=== PATIENT | female | born 1950 | race Caucasian/White ===

== ENCOUNTER 2019-02-17 08:41 | Inpatient (IN) ==
--- NOTE | 2019-02-04 10:41 | PAT Medication Instructions ---
Medication Instructions Date of Service February 04, 2019 Home Medications cholecalciferol (vitamin D3) [Vitamin D3] 2,000 unit PO QAM darbepoetin phyllis in polysorbat [Aranesp (in polysorbate)] 10 mcg SUBCUT Q4WK esomeprazole magnesium [Nexium] 20 mg PO QAM ferrous sulfate [iron] 325 mg PO QAM levothyroxine 88 mcg PO QAM metoprolol tartrate 50 mg PO BID multivitamin 1 tab PO QAM Continue as directed darbepoetin phyllis in polysorbat [Aranesp (in polysorbate)] 10 mcg SUBCUT Q4WK DO NOT take the morning of surgery cholecalciferol (vitamin D3) [Vitamin D3] 2,000 unit PO QAM ferrous sulfate [iron] 325 mg PO QAM multivitamin 1 tab PO QAM Take morning of surgery With a small sip of water, OTHERWISE NOTHING TO EAT OR DRINK AFTER MIDNIGHT: esomeprazole magnesium [Nexium] 20 mg PO QAM levothyroxine 88 mcg PO QAM metoprolol tartrate 50 mg PO BID Take evening before surgery metoprolol tartrate 50 mg PO BID Other Notes If you have any questions please call us at [phone] or [phone] or [phone] or [phone]
--- NOTE | 2019-02-04 11:20 | Anesthesiology Consultation ---
Date of Service February 04, 2019 Assessment & Plan (1) Encounter for pre-operative examination: PCP clearance (Sandoval) 02/07 = pre op testing reviewed, CBC with HGB 10.7, known chronic anemia...patient is medically cleared for surgery. Chart Review Chart Review: Acceptable Risk for Surgery and Patient seen in Pre Admission Testing Teaching & Discussion Instructed NPO after midnight before surgery, except medications with 15 cc of water. Medication instructions provided according to the PAT guidelines. History Surgery Operation Date: 02/17/19 11:30 Proposed Procedures p Right Anterior Total Hip Arthroplasty - Stefan Mendieta DO Height/Weight Height: 5 ft 2 in Weight: 62.1 kg Allergies Allergy/AdvReac Type Severity Reaction Status Date / Time No Known Allergies Allergy Verified 01/30/19 14:35 Medications Home Medications Medication Instructions Recorded Confirmed Last Taken cholecalciferol (vitamin D3) 2,000 unit PO QAM 01/30/19 01/30/19 Unknown [Vitamin D3] darbepoetin phyllis in polysorbat 10 mcg SUBCUT Q4WK 01/30/19 01/30/19 Unknown [Aranesp (in polysorbate)] esomeprazole magnesium [Nexium] 20 mg PO QAM 01/30/19 01/30/19 Unknown ferrous sulfate [iron] 325 mg PO QAM 01/30/19 01/30/19 Unknown levothyroxine 88 mcg PO QAM 01/30/19 01/30/19 Unknown metoprolol tartrate 50 mg PO BID 01/30/19 01/30/19 Unknown multivitamin 1 tab PO QAM 01/30/19 01/30/19 Unknown Past Medical History Medical History Avascular necrosis of bone of right hip current issue Chronic anemia GERD (gastroesophageal reflux disease) Hypertension Hypothyroidism Exercise / Class Metabolic Activity III < 4 Walking/Shop/Light housework (Denies CP or SOB with 1 FOS normally, but currently limited by hip pain) Past Family History Family History Brother Family history of diabetes mellitus Sister Family history of diabetes mellitus Past Surgical History Surgical History History of arthroscopy of both knees History of cholecystectomy History of colonoscopy Past Anesthesia History No Hx of Anesthesia Complications and No Family Hx of Anesthesia Complications History of PONV No Hx of PONV and No Hx of Motion Sickness Social History Smoking Status: Never smoker Do You Dip or Chew Tobacco: No Hx Alcohol Use: No Hx Substance Use: No Review of Systems Pt denies any recent chest pain, shortness of breath, palpitations, cough, fever or URI. Physical Exam Vital Signs BP: 146/81 (pt is having significant pain today) P: 61bpm SPO2: 98% RA T: 97.8 R: 16 ENMT Mouth: + dentures (full upper); no chipped teeth and no loose teeth Thyromental Distance: < 3.5 Finger Breadths (3) Mallampati Class: I Missing all top teeth, all molars on the bottom. Neck normal visual inspection; neck extension not limited Respiratory normal respiratory effort Auscultation: lungs clear to auscultation bilaterally Cardiovascular Rate/Rhythm: regular rate and regular rhythm Heart Sounds: no murmur Vessels: no carotid bruit Extremities: no edema Testing Laboratory Results 02/04/19 11:29 02/04/19 11:29 PT 9.9 Seconds (9.0-12.0) 02/04/19 11:29 INR 1.0 (0.9-1.1) 02/04/19 11:29 APTT 25.4 Seconds (21.0-31.0) 02/04/19 11:29 Hemoglobin A1c 5.0 % (4.5-5.6) 02/04/19 11:22 Urine Color Yellow 02/04/19 11:29 Urine Appearance Clear (Clear) 02/04/19 11:29 Urine pH 5.0 (4.5-7.5) 02/04/19 11:29 Ur Specific [place] 1.020 (1.000-1.030) 02/04/19 11:29 Urine Protein Negative (Negative) 02/04/19 11:29 Urine Glucose (UA) Negative (Negative) 02/04/19 11:29 Urine Ketones Negative (Negative) 02/04/19 11:29 Urine Nitrite Negative (Negative) 02/04/19 11:29 Ur Leukocyte Esterase Negative (Negative) 02/04/19 11:29 Blood Type A Negative 02/04/19 11:29 Antibody Screen NEGATIVE 02/04/19 11:29 Electrocardiogram Date: 02/04/19 Findings: + SB @ (59bpm with 1st degree AV block) Chest X-Ray Date: 02/04/19 Findings: + NAD
--- NOTE | 2019-02-04 12:08 | XRay Report ---
XR chest Pre-admission PA/Lat CLINICAL HISTORY: Preoperative chest COMPARISON STUDY: No previous studies for comparison. FINDINGS: The cardiac and mediastinal contours are normal. There is no evidence of focal pulmonary co nsolidation. There is no evidence of failure. No pleural effusions are visualized.[There is a suspect ed hiatal hernia. IMPRESSION: No active disease in the chest. Electronically signed by: Rene Delgadillo M.D. 02/04/2019 12:07 PM
[2019-02-04 12:28] LABS: Basophils # (auto) 0.04 K/uL (0-0.2); Basophils % (auto) 0.7 %; Eosinophils # (auto) 0.14 K/uL (0-0.5); Eosinophils % (auto) 2.4 %; Hematocrit (blood only) 33.3 % (37-47); Hemoglobin 10.7 g/dL (12.0-16.0); Immature Granulocytes # (auto) 0.01 K/uL (0.00-0.02); Immature Granulocytes % (auto) 0.2 %; Lymphocytes # (auto) 0.66 K/uL (1.2-3.4); Lymphocytes % (auto) 11.2 %; Mean Corpuscular Hgb Conc 32.1 g/dL (32-36); Mean Corpuscular Volume 85.8 fL (80-100); Mean Platelet Volume 9.6 fL (7.4-10.4); Monocytes # (auto) 0.51 K/uL (0.11-0.59); Monocytes % (auto) 8.7 %; Neutrophils # (auto) 4.52 K/uL (1.4-6.5); Neutrophils % (auto) 76.8 %; Platelet Count 191 K/uL (130-400); RDW Coefficient of Variation 18.8 % (11.5-14.5); RDW Standard Deviation 59.2 fL (36.4-46.3); Red Blood Count 3.88 M/uL (4.2-5.4); White Blood Count 5.88 K/uL (4.8-10.8)
[2019-02-04 12:35] LABS: Albumin Level 3.5 gm/dl (3.4-5.0); Appearance Urine Clear (Clear); BUN Creatinine Ratio 22.4 (10-20); Bilirubin Urine Negative (Negative); Color Urine Yellow; Creatinine Clr Calc Pharmacy 37.9 ml/min; Est GFR (African American) 51.5; Est GFR (Non-African American) 44.5; Glucose Urine UA Negative (Negative); Ketones Urine Negative (Negative); Leukocyte Esterase Urine Negative (Negative); Nitrite Urine Negative (Negative); Potassium 4.4 mmol/L (3.5-5.1); Protein Urine Negative (Negative); Urobilinogen Urine Negative (Negative)
[2019-02-04 12:43] LABS: Partial Thromboplastin Ratio 0.9; Partial Thromboplastin Time 25.4 Seconds (21.0-31.0); Prothrombin Time 9.9 Seconds (9.0-12.0)
[2019-02-04 12:45] LABS: Estimated Average Glucose 97 mg/dl
--- NOTE | 2019-02-16 22:19 | History & Physical Report ---
Date of Service February 16, 2019 Assessment & Plan (1) Avascular necrosis of bone of right hip: I have indicated the patient for right anterior total hip replacement. The risks, benefits and complications of surgery were explained to the patient which include but not limited to infection, acute blood loss, DVT/PE, injury to nerves, vessels, bone, soft tissue, arthrofibrosis, chronic pain, failure of the prosthesis, hip dislocation, leg length discrepancy, need for additional surgery, cardiac and pulmonary events and . The patient wished to proceed with surgery and informed consent was obtained at this time. We will plan for ASA 81mg BID post-operatively for DVT prophylaxis. Upon discharge the patient will be discharged home with home health services. Appropriate clearances by PCP were obtained. History of Present Illness Chief Complaint: Right hip pain/AVN with collapse Primary Care Provider: Peter Nick The patient is a 68 year old female who presents with complaints of severe right hip pain and DJD. The patient has failed outpatient conservative treatments to this point which included PT, HEP, unable to take NSAIDs secondary to blood disorder. The patient's pain and limited function have progressed to the point where they severely hinder their activities of daily living and they no longer tolerate exercise programs. They are requesting to proceed with total hip replacement surgery. Allergies Allergy/AdvReac Type Severity Reaction Status Date / Time No Known Allergies Allergy Verified 02/17/19 09:11 Home Medications Home Medications Medication Instructions Recorded Confirmed Type cholecalciferol (vitamin D3) 2,000 unit PO QAM 01/30/19 01/30/19 History [Vitamin D3] darbepoetin phyllis in polysorbat 10 mcg SUBCUT Q4WK 01/30/19 01/30/19 History [Aranesp (in polysorbate)] esomeprazole magnesium [Nexium] 20 mg PO QAM 01/30/19 01/30/19 History ferrous sulfate [iron] 325 mg PO QAM 01/30/19 01/30/19 History levothyroxine 88 mcg PO QAM 01/30/19 01/30/19 History metoprolol tartrate 50 mg PO BID 01/30/19 01/30/19 History multivitamin 1 tab PO QAM 01/30/19 01/30/19 History Past Med/Surg History Medical History Avascular necrosis of bone of right hip current issue Chronic anemia GERD (gastroesophageal reflux disease) Hypertension Hypothyroidism Surgical History History of arthroscopy of both knees History of cholecystectomy History of colonoscopy Family History Brother Family history of diabetes mellitus Sister Family history of diabetes mellitus Social History Preferred Language: Tajik Communication Ability: Effective Beliefs That Will Affect Care: None Current Living Situation: Spouse Feels Safe at Home: Yes Smoking Status: Never smoker Do You Dip or Chew Tobacco: No Second Hand Exposure: No Hx Alcohol Use: No Hx Substance Use: No Review of Systems Review of Systems: All systems reviewed & are unremarkable except as noted in HPI & below Constitutional: as per Subjective / HPI Physical Exam Physical Exam: RLE NVSI +EHL/FHL/TA/GS SILT grossly, +2 DP pulse, compartments soft NT, painful limited ROM, antalgic gait Constitutional: WD/WN, vitals as above Eyes: PERRL, conjunctivae normal, anicteric sclerae ENMT: external ear and nose normal, oropharynx normal Neck: trachea midline, no thyromegaly Respiratory: normal respiratory effort, lungs clear to auscultation Cardiovascular: RRR, no murmur, no edema Gastrointestinal (Abdomen): normal bowel sounds, soft, nontender, no hepatosplenomegaly Musculoskeletal: no cyanosis or clubbing, extremities motor strength 5/5 Skin: no rashes, warm and dry Neurologic: patellar DTR's 2+ bilat, sensation intact Psychiatric: A+Ox3, euthymic affect Lymphatic: no cervical or axillary lymphadenopathy Results & Data Diagnostic Findings Multiple views of the hip demonstrates severe AVN, DJD with collapse. +osteophytes, +sclerosis, +subchondral cysts.
[~2019-02-17 08:41] MED LIST: ACETAMINOPHEN 500 MG TAB PO SCH; BUPIVACAINE 0.5 % 5 MG/1 ML PF 10ML VIAL ONE; CEFAZOLIN 1000MG 1,000 MG/7.5 ML SYR IV SCH; CeleBREX 200 MG CAP PO SCH; FAMOTIDINE 20 MG TAB PO SCH; GABAPENTIN 300 MG CAP PO SCH; LR 500ML BOLUS, THEN 15ML/HR IV SCH; METOCLOPRAMIDE HCL 10 MG TABLET PO SCH; ROPIVACAINE 0.5% HCL/PF 150 MG, BUPIVACAINE 0.5% MPF 30 ML, EPINEPHrine 30MG/30ML (OR U... INSTIL SCH; TRANEXAMIC ACID 1,000 MG **IV Intra-op IV SCH; TRANEXAMIC ACID 1,000 MG **IV Pre-op IV SCH; dexAMETHasone 4 MG TAB PO SCH
--- NOTE | 2019-02-17 09:13 | History & Physical Bridge Note ---
Date of Service February 17, 2019 History & Physical Bridge Note I have examined the patient, reviewed the History & Physical and in the interval since the performance of the History & Physical I have noted the following changes of clinical significance: no changes noted
[2019-02-17] MEDS ORDERED: ORTHO JOINT ANESTHETIC ONE (09:30)
[2019-02-17] MEDS ORDERED: BACITRACIN INJ 50,000 UNIT VIAL ONE (09:31)
[2019-02-17] MEDS ORDERED: MIDAZOLAM HCL 1 MG/ML 2ML VIAL ONE ×2 (09:35→09:36)
[2019-02-17] MEDS ORDERED: LIDOCAINE HCL 2% 2 ML VIAL/AMP(20MG/ML) INFIL ONE (09:35)
[2019-02-17] MEDS ORDERED: PROPOFOL IV EMULSION 10 MG/ML 20 ML VIAL IV ONE (09:35)
[2019-02-17] MEDS ORDERED: fentaNYL citrate 100 MCG/2 ML VIAL ONE (09:36)
[2019-02-17] MEDS ORDERED: KETAMINE HCL INJ 50 MG/ML 10 ML VIAL ONE (09:36)
[2019-02-17] MEDS ORDERED: PHENYLEPHRINE 100MCG/ML 5ML SYR IV PRN (10:04)
[2019-02-17] MEDS ORDERED: LABETALOL HCL IV 5 MG/ML 20ML IV PRN (10:04)
[2019-02-17] MEDS ORDERED: ATROPINE SULFATE 0.1 MG/ML 10ML SYR IV PRN (10:04)
[2019-02-17] MEDS ORDERED: ePHEDrine sulfate 50 MG/ML AMP IV PRN (10:04)
[2019-02-17] MEDS ORDERED: fentaNYL citrate 100 MCG/2 ML VIAL IV PRN (10:04)
[2019-02-17] MEDS ORDERED: ONDANSETRON INJ 2 MG/ML 2 ML VIAL IV PRN ×2 (10:04→14:58)
[2019-02-17] MEDS ORDERED: ePHEDrine sulfate 50 MG/ML SYR ONE (12:32)
--- NOTE | 2019-02-17 12:39 | Post Operative Brief Note ---
Immediate Post Op Note v1 Date of Surgery February 17, 2019 Pre & Post Diagnosis Operation Date: 02/17/19 11:20 Pre-Op Diagnosis: Right hip osteoarthritis Post-Op Diagnosis: Right hip osteoarthritis Procedure Operation Date: 02/17/19 11:20 Actual Procedures p Right Anterior Total Hip Arthroplasty(Right) - Stefan Mendieta DO Surgeon Stefan Mendieta DO Agronomy Manager Lakhwinder Avelar Estimated Blood Loss 85 Findings Consistent with Post-Op Diagnosis Fluids 900 IO, 1500 cc LR total Specimens femoral head Anesthesia Type Spinal MAC Complications none Disposition Disposition: Recovery Room Overlapping Procedure I was present for: the critical portions of procedure. I was immediately available: during the entire case. Back up surgeon: was not required during procedure.
--- NOTE | 2019-02-17 12:44 | Operative Report ---
Post Operative Report Pre & Post Diagnosis Operation Date: 02/17/19 11:20 Pre-Op Diagnosis: Right hip osteoarthritis Post-Op Diagnosis: Right hip osteoarthritis Procedure Operation Date: 02/17/19 11:20 Actual Procedures p Right Anterior Total Hip Arthroplasty(Right) - Stefan Mendieta DO Surgeon Stefan Mendieta DO Rn Lvn Lakhwinder Avelar Estimated Blood Loss 85 Findings Consistent with Post-Op Diagnosis Fluids 1500 cc LR total Specimens Femoral head Anesthesia Type Spinal MAC Complications none Disposition Disposition: Recovery Room Indications The patient is a 61-year-old female who presents with severe progressive right hip AVN/ DJD who has failed outpatient conservative treatments. I indicated the patient for a anterior total hip replacement and the risks and benefits were explained in detail which include but not limited to infection, bleeding, blood clot, damage to surrounding bone, nerves, vessels, soft tissue, hip dislocation, failure of the prosthesis, leg length discrepancy, need for additional surgery and . The patient agreed to proceed with replacement of the hip and informed consent was obtained. Appropriate clearances were obtained. Description of Procedure COMPONENTS USED: [employer] hip system: Acetabulum size 48, femur size 8 standard offset, femoral head 32+0, liner 4832, acetabular screw 25 mm x 2. DESCRIPTION OF PROCEDURE: Following satisfactory spinal anesthesia, the patient was placed supine on the OR table. The left leg was placed in the well leg kyle and the right leg in the traction device. The right leg was prepared with ChloraPrep and draped sterilely. A surgical timeout was performed, patient identified and site justin verified. Appropriate antibiotics were given. A standard anterior approach in the interval between the sartorius and tensor muscles was performed. Dissection was carried down through subcutaneous tissues. Electrocautery was utilized for hemostasis. Circumflex femoral vessels were identified, tied and ligated. The anterior capsular fat pad was removed and the capsulotomy was performed revealing the arthritic femoral neck and head. A femoral neck cut was made with reciprocating saw and the bone fragments removed. The acetabular self-retraining retractor was placed. Acetabular reaming was completed under fluoroscopic guidance, a 48 shell was impacted into an anatomic position and secured with 2 dome screws. Local anesthetic was placed and following irrigation, the polyethylene liner was placed. The femur was placed into position of external rotation, extension and adduction. Femoral canal was prepared up to the size 8 standard offset. Trial reduction with a +0 neck length head showed good soft tissue tension, leg length s restored, and good fit and fill of the proximal canal using fluoroscopic landmarks. The hip was dislocated. The trial component was removed. The final implant was placed. The hip was irrigated with sterile saline solution and reduced. A Betadine soak was performed. After 3 minutes, the hip was once more irrigated with copious sterile saline solution with bacitracin. Shila-incisional soft t issue was injected utilizing [place] [employer] which includes a combination of Ropivicaine 0.5% 150mg, Bupivicaine 0.5%/Epinephrine 1:200,000 30ml, Toradol 30mg, Dexamethasone 4mg, Ketamine 10mg, Clonidine 100mcg and NSS 30ml solution. The capsule was then closed with 1-0 Vicryl interrupted figure of eight sutures. The fascia was closed with a running suture of #1 Vicryl, the subcutaneous tiss ues with 2-0 Vicryl and the skin with a running subcuticular stitch of 3-0 V- Loc. Dermabond prineo and a dry dressing were applied. The patient tolerated the procedure well and was transported to PACU in stable condition. Due to the complex nature of the procedure, the entire surgery was performed with the operational assistance of Lakhwinder Avelar PA-C. The hearing aid assistant, under direct supervision, was involved in the actual performance of all aspects of the surgical procedure including patient positioning, hemostasis, tissue retraction, instrument management and wound closure. I attest to the content of the Intraoperative Record and any orders documented therein. Any exceptions are noted below.
--- NOTE | 2019-02-17 13:26 | Fluoroscopy Report ---
FL hip RT 1V CLINICAL HISTORY: Total right hip arthroplasty. Intraoperative films. COMPARISON STUDY: CT scan dated 01/30/2019 FLUOROSCOPY TIME: 45 seconds. NUMBER OF FLUOROSCOPIC IMAGES: 4 FINDINGS: 4 intraoperative fluoroscopic spot images reveal postsurgical changes of a total right hip arthroplasty. There is no dislocation. IMPRESSION: Postsurgical changes of a total right hip arthroplasty. No evidence of dislocation. Electronically signed by: Rene Delgadillo M.D. 02/17/2019 1:25 PM
--- NOTE | 2019-02-17 13:41 | XRay Report ---
XR hip 1V RT w pelvis CLINICAL HISTORY: IN PACU - A/P PELVIS and LATERAL HIP POSTOP RIGHT HIP ARTHROPLASTY COMPARISON: None. DISCUSSION: The study is rotated. There are postsurgical changes of a total right hip arthroplasty. T he acetabular femoral components appear well seated. There is no dislocation. There are advanced arth ritic changes present within the left hip. Mild irregularity of the left ischio pubic ring may be pos itional. IMPRESSION: Postsurgical changes of a total right hip arthroplasty. No evidence of dislocation. Electronically signed by: Rene Delgadillo M.D. 02/17/2019 1:39 PM
--- NOTE | 2019-02-17 13:58 | Orthopedic Progress Note ---
Date of Service February 17, 2019 Assessment & Plan (1) Avascular necrosis of bone of right hip: Status post right anterior total hip arthroplasty -Ancef x24 -DVT prophylaxis: SCDs, teds, 81 mg ASA twice daily -Weight-bear as tolerates right lower extremity -PT/OT -Postoperative x-ray demonstrates a well aligned well fixed orthopedic prosthesis without fracture dislocation -A.m. lab -DC planning Subjective Post Operative Progress Note Patient seen in PACU, comfortable, denies complaints, pain well controlled, no acute issues. Still feeling the effects of spinal anesthesia. Review of Systems Review of Systems: All systems reviewed & are unremarkable except as noted in HPI & below Constitutional: as per Subjective / HPI Physical Exam Physical Exam: Right lower extremity physical exam limited secondary to spinal anesthesia, +2 dorsalis pedis pulse, compartment soft nontender, dressings clean dry and intact. Constitutional: WD/WN, vitals as above Results & Data Vital Signs (Past 12 Hours) Vital Signs Temp Pulse Pulse Resp BP Pulse Ox 02/17/19 13:45 36.2 C L 60 19 128/68 100 02/17/19 13:35 36.2 C L 66 13 122/66 100 02/17/19 13:25 36.2 C L 61 11 L 134/80 100 02/17/19 13:15 36.2 C L 63 14 141/71 H 100 02/17/19 13:06 36.2 C L 66 16 123/68 99 02/17/19 11:45 36.3 C L 60 19 126/68 100 02/17/19 09:22 36.6 C 65 16 149/87 H 96
--- NOTE | 2019-02-17 14:02 | Anesthesiology Progress Note ---
Date of Service February 17, 2019 Anesthesia Post Procedure Vital Signs Vital Signs: Temp Pulse Pulse Resp BP Pulse Ox 02/17/19 13:45 36.2 C L 60 19 128/68 100 02/17/19 13:35 36.2 C L 66 13 122/66 100 02/17/19 13:25 36.2 C L 61 11 L 134/80 100 02/17/19 13:15 36.2 C L 63 14 141/71 H 100 02/17/19 13:06 36.2 C L 66 16 123/68 99 02/17/19 11:45 36.3 C L 60 19 126/68 100 02/17/19 09:22 36.6 C 65 16 149/87 H 96 Transfer of Care Handoff Completed per policy Notes Mental Status: alert / awake / arousable Patient Amnestic to Procedure: Yes Nausea / Vomiting: adequately controlled Pain: adequately controlled Airway Patency, RR, SpO2: stable & adequate BP & HR: stable & adequate Hydration State: stable & adequate Neuraxial Anesthesia: was administered and sensory block is resolving Anesthetic Complications: no major complications apparent and Pt Satisfied with anesthetic care
[2019-02-17] MEDS ORDERED: NALOXONE HCL 0.4 MG/1 ML VIAL/CARP IV PRN (14:58)
[2019-02-17] MEDS ORDERED: HYDROmorphone INJ 0.5 MG/0.5 ML SYR IV PRN (14:58)
[2019-02-17] MEDS ORDERED: BISACODYL 10 MG SUPP PR PRN (14:58)
[2019-02-17] MEDS ORDERED: MAGNESIUM HYDROXIDE SUSP 30 ML UDC PO PRN (14:58)
[2019-02-17] MEDS ORDERED: METOCLOPRAMIDE HCL INJ 5 MG/ML 2 ML VIAL IV PRN (14:58)
[2019-02-17] MEDS ORDERED: OXYCODONE HCL IR 5 MG TAB (IMMEDIATE RELEASE) PO PRN (14:58)
[2019-02-17] MEDS: SODIUM CHLORIDE 0.9% 1000ML 1,000 ML IV SCH (15:21)
[2019-02-17] MEDS: ACETAMINOPHEN 500 MG TAB PO SCH (16:37)
[2019-02-17] MEDS: KETOROLAC TROMETHAMINE 15 MG/ML VIAL IV SCH ×2 (16:37→22:10)
[2019-02-17] MEDS: CEFAZOLIN 1000MG 1,000 MG/7.5 ML SYR IV SCH (19:10)
[2019-02-17] MEDS ORDERED: COUGH DROP (SUGAR FREE) LOZ 24 LOZ/1 BOX BUCCAL PRN (20:53)
[2019-02-17] MEDS: METOPROLOL TARTRATE 50 MG TAB PO SCH (20:56)
[2019-02-17] MEDS: DOCUSATE SODIUM 100 MG CAP PO SCH (20:57)
[2019-02-17] MEDS ORDERED: COUGH DROP (SUGAR FREE) LOZ 24 LOZ/1 BOX BUCCAL ONE (20:58)
[2019-02-17] MEDS ORDERED: SENNA 8.6 MG TAB PO SCH (21:00)
[2019-02-18] MEDS: SODIUM CHLORIDE 0.9% 1000ML 1,000 ML IV SCH (00:23)
[2019-02-18] MEDS: CEFAZOLIN 1000MG 1,000 MG/7.5 ML SYR IV SCH (03:13)
[2019-02-18] MEDS: KETOROLAC TROMETHAMINE 15 MG/ML VIAL IV SCH ×2 (04:53→10:38)
[2019-02-18] MEDS ORDERED: LEVOTHYROXINE SODIUM 88 MCG TABLET PO SCH (06:30)
[2019-02-18] MEDS: ACETAMINOPHEN 500 MG TAB PO SCH ×2 (06:33→13:27)
[2019-02-18 06:39] LABS: Basophils # (auto) 0.01 K/uL (0-0.2); Basophils % (auto) 0.1 %; Hematocrit (blood only) 26.1 % (37-47); Hemoglobin 8.4 g/dL (12.0-16.0); Immature Granulocytes # (auto) 0.03 K/uL (0.00-0.02); Immature Granulocytes % (auto) 0.3 %; Lymphocytes % (auto) 4.9 %; Mean Corpuscular Hgb Conc 32.2 g/dL (32-36); Mean Corpuscular Volume 84.7 fL (80-100); Mean Platelet Volume 9.2 fL (7.4-10.4); Monocytes # (auto) 0.53 K/uL (0.11-0.59); Monocytes % (auto) 5.2 %; Neutrophils # (auto) 9.16 K/uL (1.4-6.5); Neutrophils % (auto) 89.5 %; Platelet Count 143 K/uL (130-400); RDW Coefficient of Variation 17.5 % (11.5-14.5); RDW Standard Deviation 54.9 fL (36.4-46.3); Red Blood Count 3.08 M/uL (4.2-5.4); White Blood Count 10.23 K/uL (4.8-10.8)
[2019-02-18 07:07] LABS: Calcium 8.7 mg/dl (8.5-10.1); Creatinine Clr Calc Pharmacy 34.4 ml/min; Est GFR (African American) 46.1; Est GFR (Non-African American) 39.8; Potassium 3.9 mmol/L (3.5-5.1)
[2019-02-18] MEDS: METOPROLOL TARTRATE 50 MG TAB PO SCH (08:30)
[2019-02-18] MEDS: DOCUSATE SODIUM 100 MG CAP PO SCH (08:37)
[2019-02-18] MEDS ORDERED: FERROUS SULFATE 325 MG TAB PO SCH (09:00)
[2019-02-18] MEDS ORDERED: MULTIVITAMIN TAB PO SCH (09:00)
[2019-02-18] MEDS ORDERED: PANTOprazole 40 MG TAB PO SCH (09:00)
[2019-02-18] MEDS ORDERED: ASPIRIN 81 MG ECTAB PO SCH (09:00)
[2019-02-18] MEDS ORDERED: FOLIC ACID 1 MG TAB PO SCH (09:00)
--- NOTE | 2019-02-18 09:44 | Orthopedic Progress Note ---
Date of Service February 18, 2019 Assessment & Plan (1) Avascular necrosis of bone of right hip: Status post right anterior total hip arthroplasty -Ancef x24 -DVT prophylaxis: SCDs, teds, 81 mg ASA twice daily -Weight-bear as tolerates right lower extremity -PT/OT -Postoperative x-ray demonstrates a well aligned well fixed orthopedic prosthesis without fracture dislocation -A.m. lab - 8.4 -DC planning - home with HH Subjective Post Operative Progress Note Patient seen sitting up in bed, comfortable, denies complaints, pain well controlled, no acute issues. Review of Systems Review of Systems: All systems reviewed & are unremarkable except as noted in HPI & below Constitutional: as per Subjective / HPI Physical Exam Physical Exam: RLE NVSI +EHL/FHL/TA/GS SILT grossly, +2 DP pulse, compartments soft NT, dressing cdi. Constitutional: WD/WN, vitals as above Results & Data Vital Signs (Past 12 Hours) Vital Signs Temp Pulse Resp BP Pulse Ox 02/18/19 08:27 79 120/70 02/18/19 07:15 36.4 C L 54 L 16 135/68 98 02/18/19 03:01 36.4 C L 48 L 16 146/71 H 100 02/17/19 23:10 36.4 C L 49 L 16 146/78 H 100
--- NOTE | 2019-02-18 20:35 | Discharge Summary ---
Date of Service February 18, 2019 Admission HPI Per Admitting Provider The patient is a 68 year old female who presents with complaints of severe right hip pain and DJD. The patient has failed outpatient conservative treatments to this point which included PT, HEP, unable to take NSAIDs secondary to blood disorder. The patient's pain and limited function have progressed to the point where they severely hinder their activities of daily living and they no longer tolerate exercise programs. They are requesting to proceed with total hip replacement surgery. Principal Diagnosis Right anterior total hip replacement Discharge Exam RLE NVSI +EHL/FHL/TA/GS SILT grossly, +2 DP pulse, compartments soft NT, dressing cdi. 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 The patient's symptoms have progressed to the point where it has been difficult to perform even normal activities of daily living. I indicated the patient for a right anterior total hip arthroplasty, the risks, benefits and complications of the procedure include but not limited to infection, bleeding, damage to bone, nerves, vessels, surrounding soft tissue, may develop blood clots, loss of function, leg length discrepancy, dislocation, failure of the components, loosening of the components, the need for additional surgery and . The patient wished to proceed with surgery at this time and informed consent was obtained. Hospital Course: On 02/17/19 the patient was taken to the operating room, adequate anesthesia administered and underwent a right anterior total hip arthroplasty. The patient tolerated the procedure well and was taken to the PACU in stable condition. Post-operatively the patient was started on a DVT ppx medication and given appropriate IV antibiotics. Consults were placed to physical therapy, occupational therapy and case management. On POD#1, the patient did well overnight and their pain was well controlled. Labs were drawn and the Hgb was 8.4. The patient progressed well with PT. Dressings were changed at this time and the incision was clean, dry and intact. The patients hospital stay was relatively uneventful and they were deemed stable by the orthopedic team and consultants to be discharged home with HH on 02/18/19. Discharge Instructions: Upon discharge the patient may weight bear as tolerates through their operative extremity. They were instructed to keep the incision clean and dry at all times. The patient may shower but should not submerge the incision, avoid bathing, pools and hot tubes. The patient was given a script for pain medication and should take as instructed. The patient was given a script for DVT ppx ASA 81mg BID and should take as directed. The patient was instructed to not drive or travel for long distances until cleared to do so. If the patient develops any symptoms of fevers, chills, nausea, vomiting, increased redness, swelling, pain or drainage from the surgical site, they should notify the office and/or proceed to the nearest emergency room. The patient should follow up in 10-14 days after surgery for their routine post-operative follow-up appointment and should call the office to confirm the date and time. Status post right anterior total hip arthroplasty POD#1 -Ancef x24 -DVT prophylaxis: SCDs, teds, 81 mg ASA twice daily -Weight-bear as tolerates right lower extremity -PT/OT -Postoperative x-ray demonstrates a well aligned well fixed orthopedic prosthesis without fracture dislocation -A.m. lab - 8.4 -DC planning - home with HH Total Time Total Time Spent Total Time Spent (In Minutes): 30 minutes Total Time Includes: Examination of the Patient, Discharge Planning, Medication Reconciliation and Communication With Other Providers Discharge Plan Discharge Items Patient Disposition: Home - Home Health Services Reason For Visit: RIGHT HIP OSTEOARTHRITIS Discharge Diagnosis: Right anterior total hip replacement Condition: Good Discharge Goals: Decrease discomfort, Improve disease control, Improve function and Therapeutic intervention Activity: Per 'Additional Instructions' section Lifting: Wait until after follow-up appointment Bathing: Keep incision dry Bathing Comment: No bathing, pools or hot tubs Sexual Activity: Wait until after follow-up appointment Exercise/Sports: Wait until after follow-up appointment Driving/Machine Use Comment: No driving till cleared by your surgeon Weightbearing: Right weightbearing Non-emergency contact: Primary Care Provider and Surgeon Call non-emergency contact if: you have any medication questions, your symptoms worsen, your pain is not controlled, your pain is worsening, your pain is unusual for you, your pain is concerning for you, you have a fever, your temperature is above 101, your wound has increased redness, your wound has increased drainage and your wound pain has increased Follow-up/Referrals: Peter Nick [Primary Care Provider] - Diet: Regular Other Ambulatory Orders: Basic Metabolic Panel (Routine) Timeframe: 1 Week Facility: [facility] - Location: Administration / Operations Ordered By: Stefan Kwan Provider Instructions: ACTIVITY RECOMMENDATIONS: SELF CARE INSTRUCTIONS AFTER TOTAL HIP REPLACEMENT : Direct Anterior Approach Until the incision and soft tissues around your hip have healed, there is a possibility that the hip prosthesis could dislocate. A. Hip flexion ( Up & Down out of chair or steps ) may be difficult. This is normal. B. Numbness in front of the thigh is also normal for a few weeks. C. Use hand rails when walking on stairs. D. Wear low heeled shoes with non-slip soles. E. Be sure that your floors are free of things that could trip you - throw rugs, electrical cords, small objects. Avoid wet and waxed floors, especially with crutches and canes. F. Try to walk several times a day with rest periods between. G. Continue with all the exercises taught to you in the hospital. Again, make walking a part of your daily routine. SPECIAL CARE INSTRUCTIONS: VERY IMPORTANT TO READ AND REVIEW A. You may still be at risk for phlebitis and blood clots. 1. Wear surgical stockings (EDUAR hose) for 2 weeks after surgery to improve circulation and reduce swelling. 2. Take Aspirin 81mg twice daily for 4 weeks or as directed by your doctor. This is your blood thinner. 3. High risk patients may be prescribed a stronger blood thinner if necessary. 4. If you are on Coumadin normally, your family doctor/practice coordinator should monitor your blood work. Expect a phone call the day of or the day after bloodwork is drawn to adjust your dosage. B. You must take antibiotics before having dental work, bladder, bowel and other surgery. Your doctor will provide you with a permanent card to carry describing precautions. C. Call [facility] if you have a fever, redness or swelling around the incision, cloudy drainage from incision, or sudden increase in pain in your hip, not relieved by your regular pain medication. D. Please call the office at if you have any concerns or questions about your operation or recovery. * YOU MAY SHOWER, NO TUB BATHS UNTIL CLEARED BY YOUR DOCTOR. - Keep an extra close eye on the top portion of your incision. Be sure to keep clean & dry. * WEAR EDUAR HOSE 20 HOURS PER DAY FOR 2 WEEKS. * YOU MAY PROGRESS FROM A WALKER, TO A CANE, TO INDEPENDENT AT YOUR OWN PACE. * MOST PATIENTS WILL HAVE HOME NURSING FOR THERAPY. IF YOU DECIDE TO DO OUTPATIENT PHYSICAL THERAPY, PLEASE SCHEDULE THIS 3 TIMES PER WEEK. * DERMABOND Prineo- This is a mesh tape dressing that is covered with glue. It should remain in place until the incision is properly healed, usually 10-14 days. This dressing is designed to naturally slough off. You may trim the excess mesh tape as it peels off. Incision may be briefly wet in a shower. Dry immediately by blotting with a clean, dry towel. Do not bath or swim until instructed by your doctor. Do not scratch, rub, or pick at the dressing. Do not apply any topical ointments or lotions until dressing is completely removed and/or instructed by your doctor. There may be a small piece of suture material at one end of your incision. Do not pull or trim this. If it is bothersome or catching on clothing, you may cover it with a band-aid. FOLLOW UP VISIT: If appointment is not already scheduled: Please call [facility] to make a follow-up appointment for 2 weeks after your surgery at . Follow up with your primary care physician in 7-10 days, a prescription for blood work to look at your kidney function was provided, please obtain within 1 week. Prescriptions: New celecoxib [Celebrex] 200 mg Capsule 200 mg PO BID PRN (Reason: pain/inflammation) Qty: 28 RF: 0 aspirin [Ecotrin Low Strength] 81 mg Tablet,Delayed Release (Dr/Ec) 81 mg PO BID Qty: 56 RF: 0 acetaminophen [Tylenol Extra Strength] 500 mg Tablet 1,000 mg PO Q8 PRN (Reason: pain and/or fever) Qty: 90 RF: 0 oxycodone 5 mg Tablet 5 mg PO Q6H MDD 6 tabs PRN (Reason: pain) Qty: 30 RF: 0 sennosides [Senokot] 8.6 mg Tablet 17.2 mg PO HS PRN (Reason: constipation) Qty: 28 RF: 0 Continued multivitamin Tablet 1 tab PO QAM RF: 0 levothyroxine 88 mcg Tablet 88 mcg PO QAM RF: 0 ferrous sulfate [iron] 325 mg (65 mg iron) Tablet 325 mg PO QAM RF: 0 metoprolol tartrate 50 mg Tablet 50 mg PO BID RF: 0 esomeprazole magnesium [Nexium] 20 mg Capsule,Delayed Release(Dr/Ec) 20 mg PO QAM RF: 0 cholecalciferol (vitamin D3) [Vitamin D3] 2,000 unit Tablet 2,000 unit PO QAM RF: 0 Aranesp (in polysorbate) 10 mcg/0.4 mL Syringe 10 mcg subcut Q4WK RF: 0 folic acid 1 mg Tablet 1 mg PO DAILY RF: 0 Discontinued aspirin [Aspir-81] 81 mg Tablet,Delayed Release (Dr/Ec) 81 mg PO DAILY RF: 0 Stand-Alone Forms: [facility]/Other Patient Handouts: Pain Management, Falls Risks Prevent Discharge Orders: Discharge Order (Routine); Ordered 02/18/19 Ordered By: Stefan Mendieta Admission Data Admit Date/Time: 02/17/19 13:09 Attending Provider: Stefan Mendieta Admit Provider: Stefan Mendieta Primary Care Provider: Peter Nick Service: Surgical Services Other Interventions: Discharge Summary Assessment (RN) Last Done: 02/18/19 13:56 DC Date/Time DO NOT enter until pt leaves facility: 02/18/19 16:30
[2019-02-18] MEDS ORDERED: CeleBREX 200 MG CAP PO SCH (21:00)
== END 2019-02-18 16:30 | disposition home health service (06) | DRG 470 ==
LOC: ASU 08:41 → 3E 13:09

== ENCOUNTER 2019-03-07 13:04 | Inpatient (IN) ==
[2019-03-07 14:26] LABS: Basophils # (auto) 0.03 K/uL (0-0.2); Basophils % (auto) 0.6 %; Eosinophils # (auto) 0.19 K/uL (0-0.5); Eosinophils % (auto) 3.8 %; Hematocrit (blood only) 23.8 % (37-47); Hemoglobin 7.7 g/dL (12.0-16.0); Immature Granulocytes # (auto) 0.01 K/uL (0.00-0.02); Immature Granulocytes % (auto) 0.2 %; Lymphocytes # (auto) 0.56 K/uL (1.2-3.4); Lymphocytes % (auto) 11.2 %; Mean Corpuscular Hgb Conc 32.4 g/dL (32-36); Mean Corpuscular Volume 83.2 fL (80-100); Mean Platelet Volume 8.7 fL (7.4-10.4); Monocytes # (auto) 0.46 K/uL (0.11-0.59); Monocytes % (auto) 9.2 %; Neutrophils # (auto) 3.75 K/uL (1.4-6.5); Platelet Count 217 K/uL (130-400); RDW Coefficient of Variation 17.6 % (11.5-14.5); RDW Standard Deviation 53.3 fL (36.4-46.3); Red Blood Count 2.86 M/uL (4.2-5.4)
[2019-03-07 14:45] LABS: BUN Creatinine Ratio 13.6 (10-20); Calcium 8.8 mg/dl (8.5-10.1); Est GFR (African American) 33.2; Est GFR (Non-African American) 28.6; Potassium 4.7 mmol/L (3.5-5.1)
[2019-03-07 14:48] LABS: Albumin Globulin Ratio 0.7 (0.9-2); Bilirubin,Total 0.2 mg/dl (0.2-1); Globulin 4.2 gm/dl (2.5-4.0); Total Protein 7.2 gm/dl (6.4-8.2)
[2019-03-07 15:02] LABS: Hypochromasia Present
--- NOTE | 2019-03-07 15:49 | Ultrasound Report ---
RIGHT HIP SOFT TISSUE ULTRASOUND CLINICAL HISTORY: Right hip swelling. Evaluate for hematoma. Incisional erythema COMPARISON STUDY: No previous studies for comparison. FINDINGS: There are 2 complex fluid collections adjacent to the right hip incision. One measures 83 x 14 x 46 mm the second measures 100 x 20 x 65 mm. There is hyperemia in the surrounding soft tissues. Clinical correlation will be necessary to differentiate a postsurgical hematoma from an abscess. IMPRESSION: There are 2 adjacent complex esdras incisional fluid collections in the right hip region measuring 83 x 14 x 46 mm, and 100 x 20 x 65 mm. Electronically signed by: Rene Delgadillo M.D. 03/07/2019 3:48 PM
[2019-03-07] MEDS ORDERED: CEFEPIME 2,000 MG/20 ML VIAL IV STA (16:37)
[2019-03-07] MEDS ORDERED: DAPTOmycin 240 MG in SYRINGE 0 ML IV STA (16:44)
[2019-03-07] MEDS ORDERED: DAPTOmycin 500 MG VIAL IV ONE (16:45)
--- NOTE | 2019-03-07 17:53 | Orthopedic Consultation ---
Date of Consultation March 07, 2019 Assessment & Plan (1) Postoperative wound infection: Ultrasound demonstrated 1 fluid collection that was approximately 8 cm x 4 cm and another that was 10 cm in length. Swabbing of the fluid that is been draining demonstrated gram-negative bacilli. Her white count is normal. She is afebrile. Given these findings the appropriate treatment will be for admission for IV antibiotics and surgical irrigation debridement with polyethylene exchange and head exchange. Her treating surgeon is out of town he will come back in order to do the surgery. We will plan for this tomorrow. I will consult internal medicine for evaluation of her kidney function as well as her hemoglobin. She is down to 7.7 but she says she usually lives around 9 or 10 due to chronic anemia. So I will hold off on a transfusion for now but I will type and cross her. She can eat now but I will make her n.p.o. after midnight for surgery tomorrow. History of Present Illness Reason for Consultation: Draining right hip wound History of Present Illness The patient is a 68-year-old female who underwent a uncomplicated right anterior approach total hip arthroplasty on February [address] Mendieta. In subsequent follow-up she was noted to have significant blistering from the adhesive around her dressing. She was prophylactically placed on Bactrim. She has not really had much increase in pain or inability to walk. However today she noticed a red rash along the lateral aspect of the thigh as well as down to the calf. She presented to the emergency room. Ultrasound demonstrated to fairly significantly sized fluid collections. There was drainage that appeared to be purulent this was swabbed. Gram stain demonstrated gram negative bacilli. She denies any recent trauma. Denies any fevers or chills. She has a history of chronic anemia. She also has some known chronic kidney disease. Allergies Allergy/AdvReac Type Severity Reaction Status Date / Time adhesive tape AdvReac Intermediate red rash, Unverified 03/07/19 15:00 Home Medications Home Medications Medication Instructions Recorded Confirmed Type Aranesp (in polysorbate) 10 mcg SUBCUT DIRECTED 01/30/19 03/07/19 History cholecalciferol (vitamin D3) 2,000 unit PO QAM 01/30/19 03/07/19 History [Vitamin D3] esomeprazole magnesium [Nexium] 20 mg PO QAM 01/30/19 03/07/19 History ferrous sulfate [iron] 325 mg PO QAM 01/30/19 03/07/19 History levothyroxine 88 mcg PO QAM 01/30/19 03/07/19 History metoprolol tartrate 50 mg PO BID 01/30/19 03/07/19 History multivitamin 1 tab PO QAM 01/30/19 03/07/19 History acetaminophen [Tylenol Extra 1,000 mg PO Q8 PRN #90 tab 02/17/19 03/07/19 Rx Strength] aspirin [Ecotrin Low Strength] 81 mg PO BID #56 tab 02/17/19 03/07/19 Rx folic acid 400 mcg PO QAM 03/07/19 03/07/19 History sulfamethoxazole-trimethoprim 1 tab PO Q12H 03/07/19 03/07/19 History [Bactrim DS] Patient History Social History Preferred Language: Qatari Communication Ability: Effective Beliefs That Will Affect Care: None marital status: Current Living Situation: Spouse Feels Safe at Home: Yes Smoking Status: Never smoker Second Hand Exposure: No ; Hx Alcohol Use: No Hx Substance Use: No Physical Exam Constitutional: WD/WN, vitals as above ENMT: Ears: no hearing impairment Neck: normal visual inspection Respiratory: normal respiratory effort Cardiovascular: Rate/Rhythm: regular rate Musculoskeletal: Right lower extremity: There is a surgical wound over the anterior aspect of the proximal thigh. There is significant esdras-incisional erythema. There is also some area more laterally to the incision consistent with where she developed a blister from the adhesive from her dressing. There is no drainage currently but the ER physician was able to express some purulent appearing fluid. There is palpable fluid collection underneath the skin. Results & Data Vital Signs (Past 12 Hours) Vital Signs Temp Pulse Pulse Resp BP BP Pulse Ox 03/07/19 16:07 72 20 131/68 96 03/07/19 14:41 68 20 120/67 98 03/07/19 13:22 36.8 C 68 20 119/59 L 99
[2019-03-07] MEDS ORDERED: ZOLPIDEM TARTRATE 5 MG TAB PO PRN (17:55)
[2019-03-07] MEDS ORDERED: ALUMINUM/MAGNESIUM SUSP 30 ML UDC PO PRN (17:55)
[2019-03-07] MEDS ORDERED: ACETAMINOPHEN 325 MG TAB PO PRN (17:55)
[2019-03-07] MEDS ORDERED: OXYCODONE/ACETAMINOPHEN 5mg/325mg TAB PO PRN (17:55)
[2019-03-07] MEDS ORDERED: SODIUM CHLORIDE 0.9% 250 ML IV PRN (18:05)
[2019-03-07] MEDS ORDERED: VANCOMYCIN CONSULT ACTIVE PRN (18:08)
--- NOTE | 2019-03-07 18:31 | Emergency Department Note ---
Entered by Ruby Contreras acting as a scribe for ED Provider Note CHIEF COMPLAINT: Rash HISTORY OF PRESENT ILLNESS: The patient is a 68 year old female who presents to the Emergency Room with complaints of a rash that started 2 hours ago. The patient states that she had a total right hip replacement surgery on February 17 but denies any pain in this area. The patient notes that she woke up this morning with the rash on her right leg, but denies pain and itchiness. The patient notes that she is on Bactrim. Pt denies LOC, headache, fevers, chills, diaphoresis, visual changes, neck pain, chest pain, breathing difficulties, nausea, vomiting, abdominal pain, back pain, melena, hematochezia, urinary symptoms, numbness, weakness, lymphadenopathy, or other complaints. REVIEW OF SYSTEMS: See HPI for pertinent positives and negatives. A total of ten systems were reviewed and were otherwise negative. PMHx/PSHx: Avascular necrosis of right hip bone, chronic anemia, GERD, hypothyroidism, HTN, cholecystectomy. SOCIAL HISTORY: Patient lives at home. PHYSICAL EXAM: GENERAL: Awake, alert, well-appearing, in no distress HENT: Normocephalic, atraumatic. Oropharynx unremarkable. EYES: PERRL. Normal conjunctiva. Sclera non-icteric. NECK: Inspection normal. Non-tender. Supple. No nuchal rigidity. FROM. No masses. RESPIRATORY: Clear to auscultation. No wheezes. No rales. Normal respiratory effort. CARDIAC: Normal rate. Normal rhythm. No murmurs. No rubs. Extremities warm and well perfused. Pulses equal. No JVD. GI: Soft, non-distended. No tenderness to palpation. No rebound or guarding. No masses. RECTAL: Deferred. MUSCULOSKELETAL: Atraumatic. Chest examination reveals no tenderness. The back is symmetrical on inspection without obvious abnormality. There is no CVA tenderness to palpation. No joint edema. LOWER EXTREMITIES: Calves are equal size bilaterally and non-tender. No edema. No discoloration. NEURO: Normal sensorium. No sensory or motor deficits noted. SKIN: Red rash streaking along the lateral aspect of the right leg. No blistering no tenderness. Mildly warm incision over right hip is swollen, red and there is mild purulent drainage. No jaundice noted. EMERGENCY DEPARTMENT COURSE: 1349: Past medical records reviewed. The patient was evaluated in room C01, and a complete history and physical examination were performed. 1615: I updated the patient on the test results. 1618: I discussed the patient's case with Dr. Rojo- Orthopedic Surgery and he said he would talk to Dr. Mendieta- Orthopedic Surgery about whether the patient needs antibiotics or surgery. 1637: I discussed the patient's case with Dr. Rojo- Orthopedic Surgery. He will evaluate the patient for further management. 1649: I updated the patient about admission and she is agreeable. MEDICAL DECISION MAKING: C1 Prior records reviewed. The patient had hip surgery performed with an anterior approach. Triage Nursing notes reviewed and agree them. Additional history obtained from the family. The patient's history was concerning for swelling and redness of the skin. Differential diagnosis: Etiologies such as cellulitis, DVT, necrotizing fasciitis, abscess, MRSA infection, dermatitis, drug eruption, as well as others were entertained.. Physical examination: The physical examination was concerning for cellulitis. There is also purulent drainage around the wound. This was cultured. ER treatment provided: Patient declined analgesia IV cefepime IV daptomycin Diagnostics interpreted by me: The labs revealed worsening anemia on CBC. The patient has a mild elevation of her creatinine. Gram stain reveals gram-negative bacteria. Imaging studies: Ultrasound imaging shows 2 large fluid collections. Radiology noted difficult to determine abscess versus hematoma. Consultation: A consultation was placed with the orthopedist, Dr. Ron Rojo. The case was discussed and diagnostics were reviewed. He agreed with the initiation of IV antibiotics. He will discuss the case with her surgeon and determine if she needs operative intervention. The patient was admitted further treatment. IMPRESSION: Postoperative wound infection, postoperative hematoma, cellulitis, anemia. PLAN: Evaluated by Hospitalist The scribe's documentation has been prepared under my direction and personally reviewed by me in its entirety. I confirm that the note above accurately reflects all work, treatment, procedures, and medical decision making performed by me. Impression & Plan Postoperative wound infection, Postoperative hematoma, Cellulitis, Anemia Past Med/Surg History Social History Preferred Language: Japanese Communication Ability: Effective Beliefs That Will Affect Care: None marital status: Current Living Situation: Spouse Feels Safe at Home: Yes Smoking Status: Never smoker Second Hand Exposure: No ; Hx Alcohol Use: No Hx Substance Use: No Results & Data Vital Signs Vital Signs - 24 hr 03/07/19 13:22 03/07/19 14:41 03/07/19 16:07 Temperature 36.8 C Temperature Source Oral Sepsis Recent Fever Within 48 Hours No Sepsis New/Unexplained Change in Mental Status No Sepsis Action Taken by Nursing No Action Required Pulse Rate 68 Pulse Rate [Right Finger] 68 72 Respiratory Rate 20 20 20 Respiratory Effort / Characteristics Non-Labored Spontaneous Non-Labored Respiratory Depth Normal Normal Respiratory Pattern Regular Blood Pressure 119/59 L Blood Pressure [Right Arm] 120/67 131/68 Blood Pressure Mean 79 Blood Pressure Mean [Right Arm] 84 89 Blood Pressure Position Sitting Pulse Oximetry 99 98 96 Oxygen Delivery Method Room Air Room Air Room Air Home Medications Current Medication List: was personally reviewed by me Laboratory Data Attestation: I reviewed the patient's lab results. Result diagrams: 03/07/19 14:16 03/07/19 14:16 Lab Results 03/07/19 03/07/19 Range/Units 14:16 14:16 WBC 5.00 (4.8-10.8) K/uL RBC 2.86 L (4.2-5.4) M/uL Hgb 7.7 L (12.0-16.0) g/dL Hct 23.8 L (37-47) % MCV 83.2 (80-100) fL MCH 26.9 (25-34) pg MCHC 32.4 (32-36) g/dL RDW Std Deviation 53.3 H (36.4-46.3) fL RDW Coeff of Gregory 17.6 H (11.5-14.5) % Plt Count 217 (130-400) K/uL MPV 8.7 (7.4-10.4) fL Immature Gran % (Auto) 0.2 % Neut % (Auto) 75.0 % Lymph % (Auto) 11.2 % Crockett % (Auto) 9.2 % Eos % (Auto) 3.8 % Baso % (Auto) 0.6 % Immature Gran # (Auto) 0.01 (0.00-0.02) K/uL Neut # (Auto) 3.75 (1.4-6.5) K/uL Lymph # (Auto) 0.56 L (1.2-3.4) K/uL Crockett # (Auto) 0.46 (0.11-0.59) K/uL Eos # (Auto) 0.19 (0-0.5) K/uL Baso # (Auto) 0.03 (0-0.2) K/uL Hypochromasia Present Sodium 134 L (136-145) mmol/L Potassium 4.7 (3.5-5.1) mmol/L Chloride 104 (98-107) mmol/L Carbon Dioxide 26 (21-32) mmol/L Anion Gap 4.0 (3-11) BUN 25 H (7-18) mg/dl Creatinine 1.80 H (0.6-1.2) mg/dl Est Cr Clr Drug Dosing 24.0 ml/min Est GFR ( Amer) 33.2 Est GFR (Non-Af Amer) 28.6 BUN/Creatinine Ratio 13.6 (10-20) Glucose 92 (70-99) mg/dl Calcium 8.8 (8.5-10.1) mg/dl Total Bilirubin 0.2 (0.2-1) mg/dl AST 9 L (15-37) U/L ALT 9 L (12-78) U/L Alkaline Phosphatase 75 (45-117) U/L Total Protein 7.2 (6.4-8.2) gm/dl Albumin 3.0 L (3.4-5.0) gm/dl Globulin 4.2 H (2.5-4.0) gm/dl Albumin/Globulin Ratio 0.7 L (0.9-2) Administered Medications Discontinued Medications Cefepime HCl (Maxipime) 2,000 mg in 20 mls @ 5 mls/min IV NOW STA; Protocol Stop: 03/07/19 16:40 Last Admin: 03/07/19 17:55 Dose: 5 mls/min Documented by: [id number] Daptomycin 240 mg/ Syringe 4.8 mls @ 0 mls/min IV NOW STA; Protocol Stop: 03/07/19 16:45 Last Admin: 03/07/19 17:17 Dose: 4.8 mls/min Documented by: [id number] Imaging Data Radiologist's Impression: Radiology results as stated below per my review and the radiologist's interpretation: RIGHT HIP SOFT TISSUE ULTRASOUND CLINICAL HISTORY: Right hip swelling. Evaluate for hematoma. Incisional erythema COMPARISON STUDY: No previous studies for comparison. FINDINGS: There are 2 complex fluid collections adjacent to the right hip incision. One measures 83 x 14 x 46 mm the second measures 100 x 20 x 65 mm. There is hyperemia in the surrounding soft tissues. Clinical correlation will be necessary to differentiate a postsurgical hematoma from an abscess. IMPRESSION: There are 2 adjacent complex esdras incisional fluid collections in the right hip region measuring 83 x 14 x 46 mm, and 100 x 20 x 65 mm. Electronically signed by: Rene Delgadillo M.D. 03/07/2019 3:48 PM Blood Pressure Blood Pressure Findings: Normal blood pressure Blood Pressure Disposition: did not require urgent referral Discharge Plan Visit Data *Final* Discharge Date/Time: 03/07/19 17:55 Chief Complaint: Infection, Wound Stated Complaint: REDNESS/RASH ON RT HIP, HIP REPLACEMENT 02/17/19 ED Provider: Bertrand Chaney Discharge Problem: Postoperative wound infection, Postoperative hematoma, Cellulitis, Anemia Patient Disposition: Admitted As Inpatient Discharge Instructions Interventions: ED Discharge Assessment Last Done: 03/07/19 17:55 Discharge Problem: Postoperative hematoma Qualifiers: Surgical complication system/body Area: skin Procedure type: non-dermatologic Qualified Code(s): L76.32 - Postprocedural hematoma of skin and subcutaneous tissue following other procedure Cellulitis Qualifiers: Site of cellulitis: unspecified site Qualified Code(s): L03.90 - Cellulitis, unspecified Anemia Qualifiers: Anemia type: unspecified type Qualified Code(s): D64.9 - Anemia, unspecified The scribe's documentation has been prepared under my direction and personally reviewed by me in its entirety. I confirm that the note above accurately reflects all work, treatment, procedures, and medical decision making performed by me.
--- NOTE | 2019-03-07 18:50 | XRay Report ---
XR hip RT 2-3V w pelvis CLINICAL HISTORY: Right hip pain COMPARISON: 02/17/2019 DISCUSSION: There are postsurgical changes of a total right hip arthroplasty. No fractures or disloca tions are visualized. There are severe arthritic changes within the left hip with partial destruction of the femoral head. This finding remains unchanged. IMPRESSION: 1. Postsurgical changes of a total right hip arthroplasty. No acute fractures or dislocations 2. Advanced arthritic changes within the left hip Electronically signed by: Rene Delgadillo M.D. 03/07/2019 6:49 PM
[2019-03-07] MEDS ORDERED: DAPTOMYCIN CONSULT ACTIVE PRN (19:28)
[2019-03-07 19:55] LABS: Magnesium 2.6 mg/dl (1.8-2.4)
--- NOTE | 2019-03-07 20:40 | Hospitalist Consultation ---
Date of Consultation March 07, 2019 Assessment & Plan (1) Postoperative wound infection: (2) Anemia: Please see Dr. Germain's addendum for assesement and plan. Supervising Physician Co-Signing Physician Notes IM ATTENDING : Patient seen and examined. History obtained from patient and records. Preceding documentation by JAH Tamayo reviewed. Final Assessment and Recommendations as follows : Postop wound infection hx right MALACHI (02/17) Gram-negative antolin on initial cultures Patient not septic. RLE swelling secondary to above rule out DVT Acute on chronic anemia secondary to recent surgery, patient asymptomatic Patient usual baseline between 8 and 9. ARF on CRI Hypertension, controlled Hypothyroidism, euthyroid as of today's TSH Follow final cultures. Continue Cefepime, Daptomycin for now. RLE venous Dopplers rule out DVT Transfuse PRBC if hemoglobin less than 7 and/or for symptomatic anemia. (Dr. Rojo agreeable with above parameter for now as he does not expect significant blood loss from contemplated procedure in a.m.) Baseline UA, monitor creatinine response to IV fluids Avoid NSAIDs for analgesia. DVT prophylaxis. SCDs Thank you much for this consultation Dr. Quintero will follow patient's progress. History of Present Illness Reason for Consultation: Medical Management Requesting Physician: Dr. Rojo Attending Physician: Dr. Germain History of Present Illness 68 year old female admitted under the orthopedic service for post operative wound infection. Patient underwent a right MALACHI on 02/[address] Mendieta. Patient reports she has been doing well since her surgery. She reports her pain has been well controlled. She has noted some increased around the surgical site. She was seen in the orthopedics office on 03/03 for post op follow up. The increased swelling was noted at that time and patient was placed on Bactrim. This morning patient reports she noted scattered, red, blotchy areas on her right leg. She then presented to the ED for further evaluation. Patient denies fever and chills. She reports that there was tape over the surgical site and when it was removed in the ED, there was some purulent drainage. Patient denies chest pain and shortness of breath. No lightheadedness, dizziness, diaphoresis, or syncopal events. She denies abdominal pain, nausea, vomiting, and diarrhea. No urinary symptoms. In the ED, patient received IV Daptomycin and IV Cefepime. Labs show WBC 5K, hgb 7.7 (was 8.4 on 02/18), creat 1.8 (baseline runs in the low 1's). Allergies Allergy/AdvReac Type Severity Reaction Status Date / Time adhesive tape AdvReac Intermediate red rash, Unverified 03/07/19 15:00 Home Medications Home Medications Medication Instructions Recorded Confirmed Type Aranesp (in polysorbate) 10 mcg SUBCUT DIRECTED 01/30/19 03/07/19 History cholecalciferol (vitamin D3) 2,000 unit PO QAM 01/30/19 03/07/19 History [Vitamin D3] esomeprazole magnesium [Nexium] 20 mg PO QAM 01/30/19 03/07/19 History ferrous sulfate [iron] 325 mg PO QAM 01/30/19 03/07/19 History levothyroxine 88 mcg PO QAM 01/30/19 03/07/19 History metoprolol tartrate 50 mg PO BID 01/30/19 03/07/19 History multivitamin 1 tab PO QAM 01/30/19 03/07/19 History acetaminophen [Tylenol Extra 1,000 mg PO Q8 PRN #90 tab 02/17/19 03/07/19 Rx Strength] aspirin [Ecotrin Low Strength] 81 mg PO BID #56 tab 02/17/19 03/07/19 Rx folic acid 400 mcg PO QAM 03/07/19 03/07/19 History sulfamethoxazole-trimethoprim 1 tab PO Q12H 03/07/19 03/07/19 History [Bactrim DS] Patient History Medical History CKD (chronic kidney disease) (Chronic) Hypothyroidism (Chronic) GERD (gastroesophageal reflux disease) (Chronic) HTN (hypertension) (Chronic) Anemia (Chronic) Avascular necrosis of bone of right hip (Chronic) Surgical History History of total right knee replacement (Chronic) Hx of cholecystectomy (Chronic) Family History Brother Family history of diabetes mellitus Sister Family history of diabetes mellitus Social History Preferred Language: Georgian Communication Ability: Effective Scrub Technician Required: No Beliefs That Will Affect Care: None marital status: Current Living Situation: Spouse Other Information That Helps Us Care for You: No Feels Safe at Home: Yes Safety Concerns: Feels Safe At This Time Smoking Status: Never smoker Do You Dip or Chew Tobacco: No ; Second Hand Exposure: No ; Hx Alcohol Use: No Hx Substance Use: No Review of Systems Review of Systems: ROS per HPI, all other systems reviewed and negative Physical Exam Constitutional: WD/WN, vitals as above Eyes: PERRL, conjunctivae normal, anicteric sclerae ENMT: external ear and nose normal, oropharynx normal Respiratory: normal respiratory effort, lungs clear to auscultation Cardiovascular: Rate/Rhythm: regular rate and regular rhythm Vessels: normal peripheral pulses Extremities: no edema Gastrointestinal (Abdomen): normal bowel sounds, soft, nontender, no hepatosplenomegaly Musculoskeletal: no cyanosis or clubbing, extremities motor strength 5/5 swelling/fluid collection noted over right hip incision, surrounding erythema, no active drainage Skin: no rashes, warm and dry Neurologic: PERRL, EOMI, accommodation nl, no face palsy, no dysarthria Psychiatric: A+Ox3, euthymic affect Results & Data Vital Signs (Past 12 Hours) Vital Signs Temp Pulse Pulse Resp BP BP Pulse Ox 03/07/19 18:05 36.7 C 82 18 165/78 H 98 03/07/19 16:07 72 20 131/68 96 03/07/19 14:41 68 20 120/67 98 03/07/19 13:22 36.8 C 68 20 119/59 L 99 Laboratory Results Short CBC 03/07/19 Range/Units 14:16 WBC 5.00 (4.8-10.8) K/uL Hgb 7.7 L (12.0-16.0) g/dL Hct 23.8 L (37-47) % Plt Count 217 (130-400) K/uL BMP 03/07/19 14:16 Sodium 134 L Potassium 4.7 Chloride 104 Carbon Dioxide 26 BUN 25 H Creatinine 1.80 H Glucose 92 Calcium 8.8 Liver Function 03/07/19 Range/Units 14:16 Total Bilirubin 0.2 (0.2-1) mg/dl AST 9 L (15-37) U/L ALT 9 L (12-78) U/L Alkaline Phosphatase 75 (45-117) U/L Albumin 3.0 L (3.4-5.0) gm/dl Diagnostic Findings RIGHT HIP SOFT TISSUE US IMPRESSION: There are 2 adjacent complex esdras incisional fluid collections in the right hip region measuring 83 x 14 x 46 mm, and 100 x 20 x 65 mm. PELVIS XR IMPRESSION: 1. Postsurgical changes of a total right hip arthroplasty. No acute fractures or dislocations 2. Advanced arthritic changes within the left hip (1) Anemia Anemia type: unspecified type Qualified Code(s): D64.9 - Anemia, unspecified
[2019-03-07] MEDS: SODIUM CHLORIDE 0.9% 1000ML 1,000 ML IV SCH (21:11)
[2019-03-07] MEDS: METOPROLOL TARTRATE 50 MG TAB PO SCH (21:19)
--- NOTE | 2019-03-07 22:59 | XRay Report ---
XR chest 1V portable CLINICAL HISTORY: renal failure COMPARISON STUDY: 02/04/2019 FINDINGS: The cardiac and mediastinal contours are normal. There is no evidence of focal pulmonary co nsolidation. There is no evidence of failure. No pleural effusions are visualized.[ IMPRESSION: No active disease in the chest. Electronically signed by: Rene Delgadillo M.D. 03/07/2019 10:57 PM
[2019-03-07 23:05] LABS: Appearance Urine Clear (Clear); Bilirubin Urine Negative (Negative); Blood Urine Negative (Negative); Color Urine Yellow; Glucose Urine UA Negative (Negative); Ketones Urine Negative (Negative); Leukocyte Esterase Urine Negative (Negative); Nitrite Urine Negative (Negative); Protein Urine Negative (Negative); Specific Gravity Urine 1.017 (1.000-1.030); Urobilinogen Urine Negative (Negative)
[2019-03-07] MEDS ORDERED: D5W AND 1/2NSS 1,000 ML IV SCH (23:55)
[2019-03-08] MEDS: ACETAMINOPHEN 500 MG TAB PO PRN (01:52)
[2019-03-08 02:07] LABS: Basophils # (auto) 0.03 K/uL (0-0.2); Basophils % (auto) 0.6 %; Eosinophils # (auto) 0.19 K/uL (0-0.5); Eosinophils % (auto) 3.9 %; Hematocrit (blood only) 22.4 % (37-47); Hemoglobin 7.2 g/dL (12.0-16.0); Immature Granulocytes # (auto) 0.01 K/uL (0.00-0.02); Immature Granulocytes % (auto) 0.2 %; Lymphocytes # (auto) 0.62 K/uL (1.2-3.4); Lymphocytes % (auto) 12.8 %; Mean Corpuscular Hgb Conc 32.1 g/dL (32-36); Mean Corpuscular Volume 83.3 fL (80-100); Mean Platelet Volume 8.4 fL (7.4-10.4); Monocytes # (auto) 0.48 K/uL (0.11-0.59); Monocytes % (auto) 9.9 %; Neutrophils # (auto) 3.51 K/uL (1.4-6.5); Neutrophils % (auto) 72.6 %; Platelet Count 205 K/uL (130-400); RDW Coefficient of Variation 17.6 % (11.5-14.5); RDW Standard Deviation 53.9 fL (36.4-46.3); Red Blood Count 2.69 M/uL (4.2-5.4); White Blood Count 4.84 K/uL (4.8-10.8)
[2019-03-08] MEDS ORDERED: SODIUM CHLORIDE 0.9% 250 ML IV PRN (02:14)
[2019-03-08 02:23] LABS: BUN Creatinine Ratio 14.4 (10-20); Calcium 8.2 mg/dl (8.5-10.1); Creatinine Clr Calc Pharmacy 28.6 ml/min; Est GFR (African American) 36.3; Est GFR (Non-African American) 31.3; Potassium 4.6 mmol/L (3.5-5.1)
[2019-03-08 02:38] LABS: Hypochromasia Present; Polychromasia 1+
[2019-03-08 04:24] LABS: Albumin Level 2.9 gm/dl (3.4-5.0)
[2019-03-08] MEDS ORDERED: VANCOMYCIN HCL 1,000 MG in SODIUM CHLORIDE 0.9% 250 ML IV SCH (06:00)
[2019-03-08] MEDS: LEVOTHYROXINE SODIUM 88 MCG TABLET PO SCH (06:02)
--- NOTE | 2019-03-08 06:23 | Ultrasound Report ---
US venous doppler LE RT CLINICAL HISTORY: RLE swelling PAIN. EDEMA. COMPARISON STUDY: No previous studies for comparison. FINDINGS: Real-time and color flow Doppler imaging were performed. Flow was seen within the femoral, popliteal and calf veins with no intraluminal thrombus demonstrated. The saphenous vein is patent. IMPRESSION: No evidence of deep venous thrombosis. The above report was generated using voice recognition software. It may contain grammatical, syntax or spelling errors. Electronically signed by: Gerardo Colón M.D. 03/08/2019 6:21 AM
[2019-03-08] MEDS: SODIUM CHLORIDE 0.9% 1000ML 1,000 ML IV SCH ×3 (06:58→20:23)
[2019-03-08 07:10] LABS: Hematocrit (blood only) 27.1 % (37-47)
--- NOTE | 2019-03-08 08:36 | Hospitalist Progress Note ---
Date of Service March 08, 2019 Assessment & Plan (1) Postoperative wound infection: -This is a patient who on 02/17/19 had Right Anterior Total Hip Arthroplasty by orthopedic Dr. Stefan Mendieta and was seen in the ED on 03/07/19 with right leg rash and drainage from the right hip/thigh and admitted to orthopedic service with concerns for postoperative wound infection -Ultrasound demonstrated 1 fluid collection that was approximately 8 cm x 4 cm and another that was 10 cm in length. Swabbing of the fluid that is been draining demonstrated gram-negative bacilli -No deep vein thrombosis on lower extremity ultrasound -There are severe arthritic changes within the left hip with partial destruction of the femoral head on XR hip RT 2-3V w pelvis on 04/07/19 -Hospitalist Medicine consult services were requested to help with management of renal function and anemia and antibiotics -continue cefepime and daptomycin as started empirically and follow blood cultures -as per initial orthopedic assessment, patient may need surgical irrigation debridement and surgical management of left hip arthritis (2) Anemia: -history of chronic anemia as per patient which started years ago and multiple evaluations did not lead to specific diagnosis of etiology as per patient -admission Hgb on 03/07/19 as 7.7 with subsequent repeat as 7.2, after 1 unit of PRBC the Hgb is 9 by 03/08/19 -adding on iron studies although these numbers may be affected by recent blood transfusion, continue iron supplements, check B12, check folate, continue folic acid supplement daily, TSH is normal Hypothyroidism -euthyroid as per normal TSH -continue home dose levothyroxine 88 mcg daily Hypertension -blood pressure controlled -can continue metoprolol BID, follow heart rate and blood pressure (3) PRAKASH (acute kidney injury): -creatinine in January, was 1.25 -on this admission 03/07/19 creatinine is 1.8 -with IV fluids 03/08/19 creatinine is 1.67, continue IV fluids -Avoid NSAIDs for analgesia. DVT prophylaxis. SCDs Daughter Sandy [phone] Subjective Patient is seen at bedside. she is awake and alert and oriented. IV fluids are running. Patient breathing on room air. denies shortness of breath. denies chest pain. no abdominal pain. no vomiting. currently NPO while awaiting orthopedic service re-assessment. Physical Exam Constitutional: WD/WN, vitals as above Eyes: PERRL, conjunctivae normal, anicteric sclerae EOM intact bilaterally ENMT: external ear and nose normal, oropharynx normal Neck: normal visual inspection Respiratory: normal respiratory effort, lungs clear to auscultation Cardiovascular: RRR, no murmur, no edema Gastrointestinal (Abdomen): normal bowel sounds, soft, nontender, no hepatosplenomegaly Musculoskeletal: Head/Neck/Chest: normocephalic and head atraumatic Skin: there is a large area of eschar of right lateral thigh below the right hip that is without drainage currently. this is in contrast to patient's photo of the thigh yesterday when it appeared to have yellow drainage. patient also reports that areas of redness below the right thigh is less and there is only some mild patchy areas of redness Neurologic: PERRL, EOMI, accommodation nl, no face palsy, no dysarthria CN's II-XI intact bilaterally Psychiatric: A+Ox3, euthymic affect Results & Data Vital Signs (Past 12 Hours) Vital Signs Temp Pulse Pulse Resp BP BP Pulse Ox 03/08/19 07:07 36.9 C 71 16 138/77 95 03/08/19 06:39 36.9 C 74 16 138/77 99 03/08/19 05:59 37 C 75 16 122/70 98 03/08/19 05:30 37.0 C 74 17 132/66 97 03/08/19 05:15 37.0 C 73 18 127/69 98 03/08/19 04:54 37 C 74 16 123/73 96 03/08/19 04:48 37.0 C 74 16 123/73 96 03/07/19 23:36 37.2 C 74 18 129/75 96 03/07/19 21:16 94 H 125/67 (1) Anemia Anemia type: unspecified type Qualified Code(s): D64.9 - Anemia, unspecified
[2019-03-08] MEDS: METOPROLOL TARTRATE 50 MG TAB PO SCH ×2 (08:47→20:25)
[2019-03-08] MEDS: FOLIC ACID 400 MCG TAB PO SCH (08:47)
[2019-03-08] MEDS: PANTOprazole 40 MG TAB PO SCH (08:47)
[2019-03-08] MEDS: FERROUS SULFATE 325 MG TAB PO SCH ×2 (08:47→11:53)
[2019-03-08] MEDS: CHOLECALCIFEROL 1,000 UNITS TAB PO SCH (08:48)
[2019-03-08 08:56] LABS: Prothrombin Time 10.4 Seconds (9.0-12.0)
[2019-03-08] MEDS ORDERED: PANTOprazole 40 MG TAB PO SCH (09:00)
[2019-03-08] MEDS ORDERED: MULTIVITAMIN TAB PO SCH (09:00)
[2019-03-08] MEDS ORDERED: FERROUS SULFATE 325 MG TAB PO SCH (09:00)
[2019-03-08 09:01] LABS: BUN Creatinine Ratio 12.9 (10-20); Calcium 8.9 mg/dl (8.5-10.1); Creatinine Clr Calc Pharmacy 27.8 ml/min; Est GFR (Non-African American) 30.2; Potassium 4.8 mmol/L (3.5-5.1)
[2019-03-08 10:05] LABS: Ferritin 90.8 ng/ml (8-388)
[2019-03-08] MEDS ORDERED: MIDAZOLAM HCL 1 MG/ML 2ML VIAL ONE (12:46)
[2019-03-08] MEDS ORDERED: fentaNYL citrate 100 MCG/2 ML VIAL ONE (12:46)
[2019-03-08] MEDS ORDERED: ONDANSETRON INJ 2 MG/ML 2 ML VIAL ONE (12:49)
[2019-03-08] MEDS ORDERED: LIDOCAINE HCL 2% 2 ML VIAL/AMP(20MG/ML) INFIL ONE (12:49)
[2019-03-08] MEDS ORDERED: PROPOFOL IV EMULSION 10 MG/ML 20 ML VIAL IV ONE (12:49)
[2019-03-08] MEDS ORDERED: ROCURONIUM BROMIDE 10 MG/ML 5 ML VIAL ONE (12:50)
--- NOTE | 2019-03-08 13:14 | Orthopedic Progress Note ---
Date of Service March 08, 2019 Assessment & Plan (1) Postoperative wound infection: I have indicated the patient for superficial versus deep I&D of right total hip, possible head and liner exchange. This is been performed through the anterior total hip approach. The risk benefits and complications of the procedure were explained to the patient and family in detail alternatives included no surgery. Benefits include improvement of symptoms. Risks include infection, persistent infection, blood clots, injury to surrounding nerves, bone, vessels, soft tissue, arthrofibrosis, chronic pain, hip dislocation, leg length discrepancy, need for additional surgery, loss of limb and loss of life. The patient and family wished to proceed with surgical intervention at this time informed consent was obtained. Subjective The patient was seen in preoperative holding. Comfortable, pain controlled, denies fevers chills nausea vomiting. Symptoms improving overnight with IV antibiotics. Review of Systems Review of Systems: All systems reviewed & are unremarkable except as noted in HPI & below Constitutional: as per Subjective / HPI Physical Exam Physical Exam: RLE NVSI +EHL/FHL/TA/GS SILT grossly, +2 DP pulse, compartments soft NT, 3-1/2 x 7-1/2 cm eschar, esdras-incisional erythema, no active drainage at this time. No pain with active and passive range of motion of the hip joint. Constitutional: WD/WN, vitals as above Results & Data Vital Signs (Past 12 Hours) Vital Signs Temp Pulse Pulse Resp BP BP Pulse Ox 03/08/19 07:07 36.9 C 71 16 138/77 95 03/08/19 06:39 36.9 C 74 16 138/77 99 03/08/19 05:59 37 C 75 16 122/70 98 03/08/19 05:30 37.0 C 74 17 132/66 97 03/08/19 05:15 37.0 C 73 18 127/69 98 03/08/19 04:54 37 C 74 16 123/73 96 03/08/19 04:48 37.0 C 74 16 123/73 96
--- NOTE | 2019-03-08 13:14 | History & Physical Bridge Note ---
Date of Service March 08, 2019 History & Physical Bridge Note I have examined the patient, reviewed the History & Physical and in the interval since the performance of the History & Physical I have noted the following changes of clinical significance: no changes noted
[2019-03-08] MEDS ORDERED: BACITRACIN INJ 50,000 UNIT VIAL ONE (13:27)
--- NOTE | 2019-03-08 13:32 | Anesthesiology Consultation ---
Date of Service March 08, 2019 Assessment & Plan (1) Encounter for pre-operative examination: Chart Review Chart Review: Acceptable Risk for Surgery and Patient NOT seen in Pre Admission Testing Consults Requested none Proposed Anesthesia Risk / Benefits Reviewed With: PT / POA / Parent / Guardian, Accepts Plan and Informed Consent Obtained History Surgery Operation Date: 03/08/19 06:45 Proposed Procedures p Total Hip Arthroplasty Uncemented - Stefan Mendieta, Height/Weight Height: 5 ft 2 in Weight: 63.5 kg Allergies Allergy/AdvReac Type Severity Reaction Status Date / Time adhesive tape AdvReac Intermediate red rash, Unverified 03/07/19 15:00 Medications Home Medications Medication Instructions Recorded Confirmed Last Taken Aranesp (in polysorbate) 10 mcg SUBCUT DIRECTED 01/30/19 03/07/19 02/26/19 cholecalciferol (vitamin D3) 2,000 unit PO QAM 01/30/19 03/07/19 03/07/19 [Vitamin D3] esomeprazole magnesium [Nexium] 20 mg PO QAM 01/30/19 03/07/19 03/07/19 ferrous sulfate [iron] 325 mg PO QAM 01/30/19 03/07/19 03/07/19 levothyroxine 88 mcg PO QAM 01/30/19 03/07/19 03/07/19 metoprolol tartrate 50 mg PO BID 01/30/19 03/07/19 03/07/19 multivitamin 1 tab PO QAM 01/30/19 03/07/19 03/07/19 acetaminophen [Tylenol Extra 1,000 mg PO Q8 PRN #90 tab 02/17/19 03/07/19 03/06/19 22:30 Strength] aspirin [Ecotrin Low Strength] 81 mg PO BID #56 tab 02/17/19 03/07/19 03/07/19 folic acid 400 mcg PO QAM 03/07/19 03/07/19 03/07/19 sulfamethoxazole-trimethoprim 1 tab PO Q12H 03/07/19 03/07/19 03/06/19 22:30 [Bactrim DS] Active Medications Generic Name Dose Route Start Last Admin Trade Name Freq PRN Reason Stop Dose Admin Acetaminophen 1,000 mg 03/07/19 18:03 03/08/19 01:52 Tylenol PO 04/06/19 18:02 1,000 mg Q8 PRN Administration pain and/or fever Ferrous Sulfate 325 mg 03/08/19 08:00 03/08/19 11:53 Feosol PO 04/07/19 07:59 Not Given TIDM ANTONELLA Folic Acid 400 mcg 03/08/19 09:00 03/08/19 08:47 Folvite PO 04/07/19 08:59 Not Given QAM ANTONELLA Sodium Chloride 1,000 mls @ 75 mls/hr 03/07/19 19:30 03/08/19 06:58 Nss 1000ml IV 04/06/19 19:29 75 mls/hr .[id number] ANTONELLA Administration Levothyroxine Sodium 88 mcg 03/08/19 06:30 03/08/19 06:02 Synthroid PO 04/07/19 06:29 88 mcg DAILYBB ANTONELLA Administration Metoprolol Tartrate 50 mg 03/07/19 21:00 03/08/19 08:47 Lopressor PO 04/06/19 20:59 Not Given BID ANTONELLA Multivitamins 1 tab 03/08/19 09:00 03/08/19 08:47 Multivitamin Tab PO 04/07/19 08:59 Not Given QAM ANTONELLA Pantoprazole Sodium 40 mg 03/08/19 09:00 03/08/19 08:47 Protonix PO 04/07/19 08:59 Not Given QAM ANTONELLA Vitamin D 2,000 units 03/08/19 09:00 03/08/19 08:48 Vitamin D3 PO 04/07/19 08:59 Not Given DAILY ANTONELLA NPO Date Last Intake of Fluids: 03/07/19 Time Last Intake of Fluids: 00:00 Date Last Intake of Solids: 03/07/19 Time Last Intake of Solids: 00:00 Past Medical History Medical History CKD (chronic kidney disease) (Chronic) Hypothyroidism (Chronic) GERD (gastroesophageal reflux disease) (Chronic) HTN (hypertension) (Chronic) Anemia (Chronic) Avascular necrosis of bone of right hip (Chronic) Exercise / Class Metabolic Activity II 4-5 Yardwork/Stairs/Walk up hill Past Family History Family History Brother Family history of diabetes mellitus Sister Family history of diabetes mellitus Past Surgical History Surgical History History of total right knee replacement (Chronic) Hx of cholecystectomy (Chronic) Past Anesthesia History No Hx of Anesthesia Complications and No Family Hx of Anesthesia Complications History of PONV No Hx of PONV and No Hx of Motion Sickness Social History Smoking Status: Never smoker Do You Dip or Chew Tobacco: No Hx Alcohol Use: No Hx Substance Use: No substance use type: does not use Physical Exam Vital Signs Last Vital Signs Temp 36.9 C 03/08/19 07:07 Pulse 71 03/08/19 07:07 Resp 16 03/08/19 07:07 BP 138/77 03/08/19 07:07 Pulse Ox 95 03/08/19 07:07 ENMT Mouth: no TMJ abnormality Thyromental Distance: > or= 3.5 Finger Breadths Mallampati Class: II Neck normal visual inspection Respiratory normal respiratory effort Auscultation: lungs clear to auscultation bilaterally Cardiovascular Rate/Rhythm: regular rate and regular rhythm Heart Sounds: no murmur Vessels: no carotid bruit Neurologic moves all extremities Psychiatric Orientation: alert and oriented x 3 Testing Laboratory Results 03/08/19 06:52 03/08/19 08:34 PT 10.4 Seconds (9.0-12.0) 03/08/19 08:34 INR 1.0 (0.9-1.1) 03/08/19 08:34 Urine Color Yellow 03/07/19 22:50 Urine Appearance Clear (Clear) 03/07/19 22:50 Urine pH 6.0 (4.5-7.5) 03/07/19 22:50 Ur Specific Kinsman 1.017 (1.000-1.030) 03/07/19 22:50 Urine Protein Negative (Negative) 03/07/19 22:50 Urine Glucose (UA) Negative (Negative) 03/07/19 22:50 Urine Ketones Negative (Negative) 03/07/19 22:50 Urine Nitrite Negative (Negative) 03/07/19 22:50 Ur Leukocyte Esterase Negative (Negative) 03/07/19 22:50 Blood Type A Negative 03/07/19 18:53 Antibody Screen NEGATIVE 03/07/19 18:53 03/07/19 14:00 Gram Stain - Final Leg,Right Wound Culture - Preliminary Gram negative bacilli
[2019-03-08] MEDS ORDERED: HYDROmorphone INJ 1 MG/ML SYRINGE IV PRN (13:35)
[2019-03-08] MEDS ORDERED: ePHEDrine sulfate 50 MG/ML AMP IV PRN (13:35)
[2019-03-08] MEDS ORDERED: ATROPINE SULFATE 0.1 MG/ML 10ML SYR IV PRN (13:35)
[2019-03-08] MEDS ORDERED: CEFEPIME 2,000 MG in SYRINGE 7.5 ML IV ONE (14:15)
[2019-03-08] MEDS ORDERED: ePHEDrine sulfate 50 MG/ML SYR ONE (14:15)
[2019-03-08] MEDS ORDERED: HYDROmorphone INJ 2 MG/ML SYR/VIAL ONE (14:31)
[2019-03-08] MEDS ORDERED: NEOSTIGMINE METHYLSULFATE 5 MG/5 ML SYR ONE (15:02)
[2019-03-08] MEDS ORDERED: GLYCOPYRROLATE 0.2 MG/ML VIAL ONE (15:02)
--- NOTE | 2019-03-08 15:25 | Fluoroscopy Report ---
FL hip RT 1V CLINICAL HISTORY: RIGHT ANTERIOR HIP ARTHROPLASTY POLY EXCHANGE COMPARISON STUDY: None FLUOROSCOPY TIME: 5 seconds NUMBER OF FLUOROSCOPIC IMAGES: 2 FINDINGS: Image intensifier utilized intraoperatively for a right hip arthroplasty. IMPRESSION: Intraoperative image intensifier usage for right hip arthroplasty. The above report was generated using voice recognition software. It may contain grammatical, syntax or spelling errors. Electronically signed by: Gerardo Colón M.D. 03/08/2019 3:23 PM
[2019-03-08] MEDS ORDERED: OXYCODONE HCL IR 5 MG TAB (IMMEDIATE RELEASE) PO PRN (15:36)
[2019-03-08] MEDS ORDERED: MAGNESIUM HYDROXIDE SUSP 30 ML UDC PO PRN (15:36)
[2019-03-08] MEDS ORDERED: BISACODYL 10 MG SUPP PR PRN (15:36)
[2019-03-08] MEDS ORDERED: ONDANSETRON INJ 2 MG/ML 2 ML VIAL IV PRN (15:36)
[2019-03-08] MEDS ORDERED: NALOXONE HCL 0.4 MG/1 ML VIAL/CARP IV PRN (15:36)
[2019-03-08] MEDS ORDERED: METOCLOPRAMIDE HCL INJ 5 MG/ML 2 ML VIAL IV PRN (15:36)
[2019-03-08] MEDS ORDERED: HYDROmorphone INJ 0.5 MG/0.5 ML SYR IV PRN (15:44)
--- NOTE | 2019-03-08 15:46 | Post Operative Brief Note ---
Immediate Post Op Note v1 Date of Surgery March 08, 2019 Pre & Post Diagnosis Operation Date: 03/08/19 06:45 Pre-Op Diagnosis: Right hip infection Post-Op Diagnosis: Right hip infection Procedure Operation Date: 03/08/19 06:45 Actual Procedures p right total hip incision and drainage, head and liner exchange(Right) - Stefan Mendieta DO Surgeon Stefan Mednieta, [employer] Daisha Lemons Estimated Blood Loss 200 Findings Consistent with Post-Op Diagnosis Fluids 900 cc LR Specimens Superficial wound cultures x 3 Superficial wound tissue culture x 1 Deep wound cultures x 2 Deep wound tissue culture x 1 Drains Hemovac Drain (10 thai dual lumen) Anesthesia Type General Complications none Disposition Disposition: Recovery Room Overlapping Procedure I was present for: the critical portions of procedure. I was immediately available: during the entire case. Back up surgeon: was not required during procedure.
--- NOTE | 2019-03-08 16:06 | Orthopedic Progress Note ---
Date of Service March 08, 2019 Assessment & Plan (1) Postoperative wound infection: Status post irrigation debridement right total hip, head and liner exchange, revision hip scar -Cefepime, daptomycin -DVT prophylaxis: SCDs, teds, ASA 81 mg twice daily -Weight-bear as tolerates right lower extremity -Hemovac drain superficial and deep -ID consult -Follow-up cultures superficial and deep -A.m. lab -Postoperative x-ray pending -DC planning Subjective Post Operative Progress Note Patient seen in PACU, comfortable, denies complaints, pain well controlled, no acute issues. Review of Systems Review of Systems: All systems reviewed & are unremarkable except as noted in HPI & below Constitutional: as per Subjective / HPI Physical Exam Physical Exam: RLE NVSI +EHL/FHL/TA/GS SILT grossly, +2 DP pulse, compartments soft NT, dressing cdi. Constitutional: WD/WN, vitals as above Results & Data Vital Signs (Past 12 Hours) Vital Signs Temp Pulse Pulse Resp BP BP Pulse Ox 03/08/19 07:07 36.9 C 71 16 138/77 95 03/08/19 06:39 36.9 C 74 16 138/77 99 03/08/19 05:59 37 C 75 16 122/70 98 03/08/19 05:30 37.0 C 74 17 132/66 97 03/08/19 05:15 37.0 C 73 18 127/69 98 03/08/19 04:54 37 C 74 16 123/73 96 03/08/19 04:48 37.0 C 74 16 123/73 96
--- NOTE | 2019-03-08 16:11 | XRay Report ---
XR hip RT min 2V CLINICAL HISTORY: Post Surgical postoperative COMPARISON: None. DISCUSSION: Anatomic alignment posttotal right hip arthroplasty. Could contact between prosthetic and underlying bone. Expected soft tissue postoperative change IMPRESSION: Anatomic alignment posttotal right hip arthroplasty. Additional note is made of severe de generative changes left hip. The above report was generated using voice recognition software. It may contain grammatical, syntax or spelling errors. Electronically signed by: Gerardo Colón M.D. 03/08/2019 4:10 PM
[2019-03-08] MEDS ORDERED: CEFEPIME 2,000 MG in SYRINGE 7.5 ML IV SCH (17:00)
--- NOTE | 2019-03-08 17:00 | Anesthesiology Progress Note ---
Date of Service March 08, 2019 Anesthesia Post Procedure Vital Signs Vital Signs: Temp Pulse Pulse Pulse Resp BP BP 03/08/19 16:55 36.5 C 60 15 103/52 L 03/08/19 16:45 36.3 C L 62 16 112/57 L 03/08/19 16:35 79 18 115/75 03/08/19 16:25 71 16 110/57 L 03/08/19 16:15 90 15 121/69 03/08/19 16:05 99 H 16 103/76 03/08/19 15:54 36.6 C 81 15 99/51 L 03/08/19 07:07 36.9 C 71 16 138/77 03/08/19 06:39 36.9 C 74 16 138/77 03/08/19 05:59 37 C 75 16 122/70 03/08/19 05:30 37.0 C 74 17 132/66 03/08/19 05:15 37.0 C 73 18 127/69 03/08/19 04:54 37 C 74 16 123/73 03/08/19 04:48 37.0 C 74 16 123/73 03/07/19 23:36 37.2 C 74 18 129/75 03/07/19 21:16 94 H 125/67 03/07/19 18:05 36.7 C 82 18 165/78 H Pulse Ox 03/08/19 16:55 100 03/08/19 16:45 100 03/08/19 16:35 100 03/08/19 16:25 100 03/08/19 16:15 100 03/08/19 16:05 100 03/08/19 15:54 100 03/08/19 07:07 95 03/08/19 06:39 99 03/08/19 05:59 98 03/08/19 05:30 97 03/08/19 05:15 98 03/08/19 04:54 96 03/08/19 04:48 96 03/07/19 23:36 96 03/07/19 21:16 03/07/19 18:05 98 Pain Intensity Right Hip: Pain Intensity: 0 Transfer of Care Handoff Completed per policy Notes Mental Status: alert / awake / arousable Patient Amnestic to Procedure: Yes Nausea / Vomiting: adequately controlled Pain: adequately controlled Airway Patency, RR, SpO2: stable & adequate BP & HR: stable & adequate Hydration State: stable & adequate Anesthetic Complications: no major complications apparent and Pt Satisfied with anesthetic care
[2019-03-08] MEDS: FERROUS GLUCONATE 324 MG TAB PO SCH (17:52)
[2019-03-08] MEDS: DAPTOmycin 300 MG in SYRINGE 0 ML IV SCH (18:09)
[2019-03-08] MEDS: SENNA 8.6 MG TAB PO SCH (20:24)
[2019-03-08] MEDS: DOCUSATE SODIUM 100 MG CAP PO SCH (20:24)
[2019-03-08] MEDS: ACETAMINOPHEN 500 MG TAB PO SCH (20:26)
[2019-03-09] MEDS: ACETAMINOPHEN 500 MG TAB PO SCH (05:29)
[2019-03-09] MEDS: LEVOTHYROXINE SODIUM 88 MCG TABLET PO SCH (06:29)
[2019-03-09 07:13] LABS: Basophils # (auto) 0.02 K/uL (0-0.2); Basophils % (auto) 0.3 %; Eosinophils # (auto) 0.09 K/uL (0-0.5); Eosinophils % (auto) 1.4 %; Hematocrit (blood only) 22.3 % (37-47); Hemoglobin 7.4 g/dL (12.0-16.0); Immature Granulocytes # (auto) 0.01 K/uL (0.00-0.02); Immature Granulocytes % (auto) 0.2 %; Lymphocytes # (auto) 0.34 K/uL (1.2-3.4); Lymphocytes % (auto) 5.3 %; Mean Corpuscular Hgb Conc 33.2 g/dL (32-36); Mean Corpuscular Volume 84.2 fL (80-100); Mean Platelet Volume 8.5 fL (7.4-10.4); Monocytes # (auto) 0.52 K/uL (0.11-0.59); Monocytes % (auto) 8.1 %; Neutrophils # (auto) 5.42 K/uL (1.4-6.5); Neutrophils % (auto) 84.7 %; Platelet Count 199 K/uL (130-400); RDW Coefficient of Variation 17.1 % (11.5-14.5); RDW Standard Deviation 52.3 fL (36.4-46.3); Red Blood Count 2.65 M/uL (4.2-5.4)
[2019-03-09 07:42] LABS: BUN Creatinine Ratio 12.7 (10-20); Calcium 8.3 mg/dl (8.5-10.1); Creatinine Clr Calc Pharmacy 31.4 ml/min; Est GFR (African American) 40.7; Est GFR (Non-African American) 35.1; Potassium 5.1 mmol/L (3.5-5.1)
[2019-03-09 07:47] LABS: RBC Morphology Unremarkable
[2019-03-09] MEDS: SODIUM CHLORIDE 0.9% 1000ML 1,000 ML IV SCH (08:32)
[2019-03-09] MEDS: METOPROLOL TARTRATE 50 MG TAB PO SCH ×2 (09:16→20:30)
[2019-03-09] MEDS: PANTOprazole 40 MG TAB PO SCH (09:16)
[2019-03-09] MEDS: MULTIVITAMIN TAB PO SCH (09:16)
[2019-03-09] MEDS: ASPIRIN 81 MG ECTAB PO SCH ×2 (09:17→20:30)
[2019-03-09] MEDS: DOCUSATE SODIUM 100 MG CAP PO SCH ×2 (09:17→20:30)
[2019-03-09] MEDS: FERROUS GLUCONATE 324 MG TAB PO SCH ×2 (09:17→17:24)
[2019-03-09] MEDS: CHOLECALCIFEROL 1,000 UNITS TAB PO SCH (09:18)
[2019-03-09] MEDS: FOLIC ACID 400 MCG TAB PO SCH (09:18)
--- NOTE | 2019-03-09 09:31 | Orthopedic Progress Note ---
Date of Service March 09, 2019 Assessment & Plan (1) Postoperative wound infection: Status post irrigation debridement right total hip, head and liner exchange, revision hip scar POD#1 -Continue with Cefepime, daptomycin -DVT prophylaxis: SCDs, teds, ASA 81 mg twice daily -Weight-bear as tolerates right lower extremity -Hemovac drain superficial and deep -ID consult -Follow-up cultures superficial and deep -A.m. lab - hgb 7.4 will transfuse 2 units PRBC -Postoperative demonstrates a well aligned well fixed prosthesis without fracture/dislocation -DC planning Subjective Post Operative Progress Note Patient seen sitting up in bed, comfortable, denies complaints, pain well controlled, no acute issues overnight. Review of Systems Review of Systems: All systems reviewed & are unremarkable except as noted in HPI & below Constitutional: as per Subjective / HPI Physical Exam 2 Physical Exam: RLE NVSI +EHL/FHL/TA/GS SILT grossly, +2 DP pulse, compartments soft NT, dressing cdi. Hvm drains intact Constitutional: WD/WN, vitals as above Results & Data Vital Signs (Past 12 Hours) Vital Signs Temp Pulse Pulse Resp BP Pulse Ox 03/09/19 07:57 37.2 C 102 H 18 114/72 97 03/09/19 03:17 37.0 C 86 16 127/67 99 03/08/19 23:01 36.5 C 86 16 103/63 99
[2019-03-09] MEDS ORDERED: SODIUM CHLORIDE 0.9% 250 ML IV PRN (10:23)
--- NOTE | 2019-03-09 11:03 | Hospitalist Progress Note ---
Date of Service March 09, 2019 Assessment & Plan (1) Postoperative wound infection: -This is a patient who on 02/17/19 had Right Anterior Total Hip Arthroplasty by orthopedic Dr. Stefan Mendieta and was seen in the ED on 03/07/19 with right leg rash and drainage from the right hip/thigh and admitted to orthopedic service with concerns for postoperative wound infection -Ultrasound demonstrated 1 fluid collection that was approximately 8 cm x 4 cm and another that was 10 cm in length. Swabbing of the fluid that is been draining demonstrated gram-negative bacilli which is Acinetobacter baumannii/haemol -No deep vein thrombosis on lower extremity ultrasound -Hospitalist Medicine consult services were requested to help with management of renal function and anemia and antibiotics -has been continued cefepime and daptomycin as started on this admission -Status post irrigation debridement right total hip, head and liner exchange, revision hip scar on 03/08/19 -following cultures -Infectious disease also consulted by orthopedic service and recommending to continue cefepime and daptomycin for now -management of right hip/thigh wound vac as per orthopedics (2) Anemia: chronic anemia with acute blood loss from postoperative anemia -history of chronic anemia as per patient which started years ago and multiple evaluations did not lead to specific diagnosis of etiology as per patient -admission Hgb on 03/07/19 as 7.7 with subsequent repeat as 7.2, after 1 unit of PRBC the Hgb is 9 by 03/08/19 -iron studies reviewed, continue iron supplements, B12 levels normal,continue folic acid supplement daily, TSH is normal -Hgb 7.4 on AM of 03/09/19; 1 unit of PRBC ordered to be transfused Hypothyroidism -euthyroid as per normal TSH -continue home dose levothyroxine 88 mcg daily Hypertension -blood pressure controlled -continue metoprolol BID (3) PRAKASH (acute kidney injury): -creatinine in January, was 1.25 -on this admission 03/07/19 creatinine is 1.8 -renal function has improved with IV fluids and is 1.52 as of 03/09/19. Patient get IV volume for medications and blood products and can hold off IV fluids for now -Avoid NSAIDs for analgesia. DVT prophylaxis. SCDs Daughter Sandy [phone] Subjective Patient's hgb decreased to 7.4. no lightheadedness. no dizziness. no shortness of breath or chest pain. we had discussed the drop in blood counts and patient's history of chronic anemia and patient prefers to have blood transfusion today rather than take the risk of symptomatic anemia or if Hgb trended down to less than 7. no vomiting, no abdominal pain. has been urinating. no bowel movement since the surgery. some right thigh discomfort that is tolerable. right thigh with dressing and wound vac. wound vac with blood Physical Exam Constitutional: WD/WN, vitals as above Eyes: PERRL, conjunctivae normal, anicteric sclerae EOM intact bilaterally ENMT: external ear and nose normal, oropharynx normal Neck: normal visual inspection Respiratory: normal respiratory effort, lungs clear to auscultation Cardiovascular: RRR, no murmur, no edema Gastrointestinal (Abdomen): normal bowel sounds, soft, nontender, no hepatosplenomegaly Musculoskeletal: Head/Neck/Chest: normocephalic and head atraumatic Neurologic: PERRL, EOMI, accommodation nl, no face palsy, no dysarthria CN's II-XI intact bilaterally Psychiatric: A+Ox3, euthymic affect Results & Data Vital Signs (Past 12 Hours) Vital Signs Temp Pulse Pulse Pulse Resp BP BP 03/09/19 10:50 37 C 75 20 110/69 03/09/19 07:57 37.2 C 102 H 18 114/72 03/09/19 03:17 37.0 C 86 16 127/67 03/08/19 23:01 36.5 C 86 16 103/63 Pulse Ox 03/09/19 10:50 100 03/09/19 07:57 97 03/09/19 03:17 99 03/08/19 23:01 99 (1) Anemia Anemia type: unspecified type Qualified Code(s): D64.9 - Anemia, unspecified
--- NOTE | 2019-03-09 11:06 | Infectious Disease Consult ---
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 follow culture results. blood cultures negative to date. History of Present Illness Attending Physician: Stefan Mendieta DO pt admitted after being found to have right hip infection, underwent replacement on 02/17 had blistering of skin, placed on bactrim, then developed 2 collections, 10 cm and 8x4 cm. wound cultured on 03/07 - growing miller sensitive Acinetobacter, on IV abx. Went to OR yesterday for washout, tolerated well. Multiple OR cultures pending, blood cultures negative. she has pain on exam, but controlled. denies f/c. no abd pain, no n/v/d, no cp, sob, cough, valle. tolerating dapto and cefepime, wbc 6, creat elevated at 1.7 now 1.5 (? bactrim related) CXR and UA negative. Allergies Allergy/AdvReac Type Severity Reaction Status Date / Time adhesive tape AdvReac Intermediate red rash, Unverified 03/07/19 15:00 Home Medications Home Medications Medication Instructions Recorded Confirmed Type Aranesp (in polysorbate) 10 mcg SUBCUT DIRECTED 01/30/19 03/07/19 History cholecalciferol (vitamin D3) 2,000 unit PO QAM 01/30/19 03/07/19 History [Vitamin D3] esomeprazole magnesium [Nexium] 20 mg PO QAM 01/30/19 03/07/19 History ferrous sulfate [iron] 325 mg PO QAM 01/30/19 03/07/19 History levothyroxine 88 mcg PO QAM 01/30/19 03/07/19 History metoprolol tartrate 50 mg PO BID 01/30/19 03/07/19 History multivitamin 1 tab PO QAM 01/30/19 03/07/19 History acetaminophen [Tylenol Extra 1,000 mg PO Q8 PRN #90 tab 02/17/19 03/07/19 Rx Strength] aspirin [Ecotrin Low Strength] 81 mg PO BID #56 tab 02/17/19 03/07/19 Rx folic acid 400 mcg PO QAM 03/07/19 03/07/19 History sulfamethoxazole-trimethoprim 1 tab PO Q12H 03/07/19 03/07/19 History [Bactrim DS] Patient History Medical History CKD (chronic kidney disease) (Chronic) Hypothyroidism (Chronic) GERD (gastroesophageal reflux disease) (Chronic) HTN (hypertension) (Chronic) Anemia (Chronic) Avascular necrosis of bone of right hip (Chronic) Surgical History History of total right knee replacement (Chronic) Hx of cholecystectomy (Chronic) Family History Brother Family history of diabetes mellitus Sister Family history of diabetes mellitus Social History Preferred Language: Urdu Communication Ability: Effective Warp Tier Required: No Beliefs That Will Affect Care: None marital status: Current Living Situation: Spouse Other Information That Helps Us Care for You: No Feels Safe at Home: Yes Safety Concerns: Feels Safe At This Time Smoking Status: Never smoker Do You Dip or Chew Tobacco: No ; Second Hand Exposure: No ; Hx Alcohol Use: No Hx Substance Use: No Review of Systems Review of Systems: All systems reviewed & are unremarkable except as noted in HPI & below Physical Exam Constitutional: WD/WN, vitals as above Eyes: PERRL, conjunctivae normal, anicteric sclerae ENMT: external ear and nose normal, oropharynx normal Neck: normal visual inspection Respiratory: normal respiratory effort, lungs clear to auscultation Cardiovascular: RRR, no murmur, no edema Gastrointestinal (Abdomen): normal bowel sounds, soft, nontender, no hepatosplenomegaly Musculoskeletal: no cyanosis or clubbing, extremities motor strength 5/5 Skin: no rashes, warm and dry right hip dressing c/d/i, drain in place Psychiatric: A+Ox3, euthymic affect Results & Data Vital Signs (Past 12 Hours) Vital Signs Temp Pulse Pulse Pulse Resp BP BP 03/09/19 10:50 37 C 75 20 110/69 03/09/19 07:57 37.2 C 102 H 18 114/72 03/09/19 03:17 37.0 C 86 16 127/67 Pulse Ox 03/09/19 10:50 100 03/09/19 07:57 97 03/09/19 03:17 99 Laboratory Results Microbiology 03/08/19 14:14 Hip,Right Gram Stain - Final 03/08/19 14:14 Hip,Right Aerobic and Anaerobic Culture - Preliminary Pin-point growth present, reincubating. 03/07/19 14:00 Leg,Right Gram Stain - Final 03/07/19 14:00 Leg,Right Wound Culture - Final Acinetobacter baumannii/haemol 03/08/19 14:24 Hip,Right Gram Stain - Final 03/08/19 14:30 Hip,Right Gram Stain - Final 03/08/19 14:30 Hip,Right Gram Stain - Final 03/08/19 14:24 Hip,Right Gram Stain - Final 03/08/19 14:14 Hip,Right Gram Stain - Final 03/08/19 14:14 Hip,Right Gram Stain - Final 03/07/19 14:48 Blood Aerobic Blood Culture - Preliminary No growth in Aerobic bottle after 24 hours. 03/07/19 14:48 Blood Anaerobic Blood Culture - Preliminary No growth in Anaerobic bottle after 24 hours. 03/07/19 14:16 Blood Aerobic Blood Culture - Preliminary No growth in Aerobic bottle after 24 hours. 03/07/19 14:16 Blood Anaerobic Blood Culture - Preliminary No growth in Anaerobic bottle after 24 hours. PG Care Time/CCT Total # of Minutes Spent Total Time Spent with Patient: Total time spent is greater than 50% in coordination of care (as documented) at patient's floor/unit and/or counseling patient:
--- NOTE | 2019-03-09 12:12 | Anesthesiology Progress Note ---
Date of Service March 09, 2019 Anesthesia Post Procedure Vital Signs Vital Signs: Temp Pulse Pulse Pulse Resp BP BP 03/09/19 11:55 36.9 C 81 20 126/58 L 03/09/19 11:50 36.9 C 81 20 126/58 L 03/09/19 11:22 36.9 C 81 20 126/58 L 03/09/19 11:19 37.2 C 77 20 118/73 03/09/19 11:05 37.1 C 79 20 111/67 03/09/19 10:50 37 C 75 20 110/69 03/09/19 07:57 37.2 C 102 H 18 114/72 03/09/19 03:17 37.0 C 86 16 127/67 03/08/19 23:01 36.5 C 86 16 103/63 03/08/19 20:08 36.3 C L 74 18 103/59 L 03/08/19 18:19 36.6 C 59 L 18 111/65 03/08/19 17:45 36.3 C L 65 16 113/75 03/08/19 17:15 36.5 C 61 14 101/51 L 03/08/19 17:04 57 L 15 112/54 L 03/08/19 16:55 36.5 C 60 15 103/52 L 03/08/19 16:45 36.3 C L 62 16 112/57 L 03/08/19 16:35 79 18 115/75 03/08/19 16:25 71 16 110/57 L 03/08/19 16:15 90 15 121/69 03/08/19 16:05 99 H 16 103/76 03/08/19 15:54 36.6 C 81 15 99/51 L Pulse Ox 03/09/19 11:55 97 03/09/19 11:50 97 03/09/19 11:22 97 03/09/19 11:19 99 03/09/19 11:05 98 03/09/19 10:50 100 03/09/19 07:57 97 03/09/19 03:17 99 03/08/19 23:01 99 03/08/19 20:08 93 03/08/19 18:19 96 03/08/19 17:45 100 03/08/19 17:15 100 03/08/19 17:04 03/08/19 16:55 03/08/19 16:45 03/08/19 16:35 03/08/19 16:25 03/08/19 16:15 100 03/08/19 16:05 03/08/19 15:54 100 Pain Intensity Right Hip: Pain Intensity: 4 Notes Mental Status: alert / awake / arousable Patient Amnestic to Procedure: Yes Nausea / Vomiting: adequately controlled Pain: adequately controlled Airway Patency, RR, SpO2: stable & adequate BP & HR: stable & adequate Hydration State: stable & adequate Anesthetic Complications: no major complications apparent and Pt Satisfied with anesthetic care
[2019-03-09] MEDS: CEFEPIME 2,000 MG in SYRINGE 7.5 ML IV SCH ×2 (14:15→22:15)
[2019-03-09] MEDS: ACETAMINOPHEN 500 MG TAB PO PRN (14:16)
[2019-03-09] MEDS: DAPTOmycin 300 MG in SYRINGE 0 ML IV SCH (15:33)
[2019-03-09] MEDS ORDERED: CEFEPIME 2,000 MG in SYRINGE 7.5 ML IV SCH (16:00)
[2019-03-09 17:34] LABS: Hematocrit (blood only) 24.9 % (37-47); Hemoglobin 8.3 g/dL (12.0-16.0); Mean Corpuscular Volume 83.8 fL (80-100); Mean Platelet Volume 8.3 fL (7.4-10.4); Platelet Count 178 K/uL (130-400); RDW Coefficient of Variation 16.3 % (11.5-14.5); Red Blood Count 2.97 M/uL (4.2-5.4); White Blood Count 7.76 K/uL (4.8-10.8)
[2019-03-09 17:43] LABS: Mean Corpuscular Hgb Conc 33.3 g/dL (32-36)
[2019-03-09] MEDS: SENNA 8.6 MG TAB PO SCH (20:31)
[2019-03-10] MEDS: ACETAMINOPHEN 500 MG TAB PO PRN (03:54)
[2019-03-10] MEDS: LEVOTHYROXINE SODIUM 88 MCG TABLET PO SCH (06:23)
[2019-03-10 06:50] LABS: Basophils # (auto) 0.03 K/uL (0-0.2); Basophils % (auto) 0.4 %; Eosinophils # (auto) 0.18 K/uL (0-0.5); Eosinophils % (auto) 2.6 %; Hematocrit (blood only) 25.1 % (37-47); Hemoglobin 8.3 g/dL (12.0-16.0); Immature Granulocytes # (auto) 0.02 K/uL (0.00-0.02); Immature Granulocytes % (auto) 0.3 %; Lymphocytes # (auto) 0.55 K/uL (1.2-3.4); Lymphocytes % (auto) 8.1 %; Mean Corpuscular Hgb Conc 33.1 g/dL (32-36); Mean Corpuscular Volume 83.9 fL (80-100); Mean Platelet Volume 8.7 fL (7.4-10.4); Monocytes # (auto) 0.77 K/uL (0.11-0.59); Monocytes % (auto) 11.3 %; Neutrophils # (auto) 5.26 K/uL (1.4-6.5); Neutrophils % (auto) 77.3 %; Platelet Count 202 K/uL (130-400); RDW Coefficient of Variation 16.3 % (11.5-14.5); RDW Standard Deviation 50.3 fL (36.4-46.3); Red Blood Count 2.99 M/uL (4.2-5.4); White Blood Count 6.81 K/uL (4.8-10.8)
[2019-03-10 07:32] LABS: BUN Creatinine Ratio 12.6 (10-20); Calcium 8.4 mg/dl (8.5-10.1); Creatinine Clr Calc Pharmacy 34.6 ml/min; Est GFR (African American) 45.7; Est GFR (Non-African American) 39.5; Potassium 4.2 mmol/L (3.5-5.1)
--- NOTE | 2019-03-10 07:48 | Orthopedic Progress Note ---
Date of Service March 10, 2019 Assessment & Plan (1) Postoperative wound infection: Status post irrigation debridement right total hip, head and liner exchange, revision hip scar POD#2 -Continue with Cefepime, daptomycin -DVT prophylaxis: SCDs, teds, ASA 81 mg twice daily -Weight-bear as tolerates right lower extremity -Hemovac drain superficial and deep -ID consult recs appreciated -Follow-up cultures superficial and deep -A.m. lab - hgb 8.3, Cr 1.38 baseline -IO cultures + aceinetobacter -Postoperative demonstrates a well aligned well fixed prosthesis without fracture/dislocation -DC planning POD#1 -Continue with Cefepime, daptomycin -DVT prophylaxis: SCDs, teds, ASA 81 mg twice daily -Weight-bear as tolerates right lower extremity -Hemovac drain superficial and deep -ID consult -Follow-up cultures superficial and deep -A.m. lab - hgb 7.4 will transfuse 2 units PRBC -Postoperative demonstrates a well aligned well fixed prosthesis without fracture/dislocation -DC planning Subjective Post Operative Progress Note Patient seen sitting up in bed, comfortable, denies complaints, pain well controlled, no acute issues overnight. Review of Systems Review of Systems: All systems reviewed & are unremarkable except as noted in HPI & below Constitutional: as per Subjective / HPI Physical Exam Physical Exam: RLE NVSI +EHL/FHL/TA/GS SILT grossly, +2 DP pulse, compartments soft NT, incision cdi. Constitutional: WD/WN, vitals as above Results & Data Vital Signs (Past 12 Hours) Vital Signs Temp Pulse Pulse Resp BP Pulse Ox 03/10/19 07:06 36.6 C 76 16 109/55 L 97 03/09/19 20:26 99 H 156/75 H
[2019-03-10] MEDS: PANTOprazole 40 MG TAB PO SCH (08:44)
[2019-03-10] MEDS: FERROUS GLUCONATE 324 MG TAB PO SCH ×2 (08:44→18:02)
[2019-03-10] MEDS: MULTIVITAMIN TAB PO SCH (08:44)
[2019-03-10] MEDS: FOLIC ACID 400 MCG TAB PO SCH (08:44)
[2019-03-10] MEDS: METOPROLOL TARTRATE 50 MG TAB PO SCH ×2 (08:44→20:52)
[2019-03-10] MEDS: DOCUSATE SODIUM 100 MG CAP PO SCH ×2 (08:44→20:52)
[2019-03-10] MEDS: CHOLECALCIFEROL 1,000 UNITS TAB PO SCH (08:44)
[2019-03-10] MEDS: ASPIRIN 81 MG ECTAB PO SCH ×2 (08:45→20:52)
[2019-03-10] MEDS: CEFEPIME 2,000 MG in SYRINGE 7.5 ML IV SCH ×2 (10:44→22:18)
--- NOTE | 2019-03-10 12:53 | Hospitalist Progress Note ---
Date of Service March 10, 2019 Assessment & Plan (1) Postoperative wound infection: -This is a patient who on 02/17/19 had Right Anterior Total Hip Arthroplasty by orthopedic Dr. Stefan Mendieta and was seen in the ED on 03/07/19 with right leg rash and drainage from the right hip/thigh and admitted to orthopedic service with concerns for postoperative wound infection -Ultrasound demonstrated 1 fluid collection that was approximately 8 cm x 4 cm and another that was 10 cm in length. Swabbing of the fluid that is been draining demonstrated gram-negative bacilli which is Acinetobacter baumannii/haemol -No deep vein thrombosis on lower extremity ultrasound -Hospitalist Medicine consult services were requested to help with management of renal function and anemia and antibiotics -has been continued cefepime and daptomycin as started on this admission -Status post irrigation debridement right total hip, head and liner exchange, revision hip scar on 03/08/19 -03/09/19 patient with wound vac and continued on IV daptomycin and IV cefepime -03/10/19: right thigh in dressing and juan pablo as sutures. currently only positive cultures are wound cultures with pansensitive Acinetobacter baumannii/haemol. daptomycin to be discontinued by hospitalist medicine consult. discussed with patient and orthopedics physician retail assistant to wait for Infectious disease consultation input on transitioning from IV cefepime. Patient's Hemoglobin is stable as 8.3 after 1 unit PRBC that was completed on 03/09/19. (2) Anemia: chronic anemia with acute blood loss from postoperative anemia -history of chronic anemia as per patient which started years ago and multiple evaluations did not lead to specific diagnosis of etiology as per patient -admission Hgb on 03/07/19 as 7.7 with subsequent repeat as 7.2, after 1 unit of PRBC the Hgb is 9 by 03/08/19 -iron studies reviewed, continue iron supplements, B12 levels normal,continue folic acid supplement daily, TSH is normal -Hgb 7.4 on AM of 03/09/19; 1 transfused -stable HGB 8.3 from 03/09/19 post-transfusion and 03/10/19 AM labs Hypothyroidism -euthyroid as per normal TSH -continue home dose levothyroxine 88 mcg daily Hypertension -blood pressure controlled -continue metoprolol BID (3) PRAKASH (acute kidney injury): -creatinine in January, was 1.25 -on this admission 03/07/19 creatinine is 1.8 -renal function has improved with IV fluids and is 1.52 as of 03/09/19. -creatinine downtrended to 1.38, encourage oral hydration -Avoid NSAIDs for analgesia. DVT prophylaxis. SCDs Daughter Sandy [phone] Subjective right thigh in dressing and juan pablo as sutures. currently only positive cultures are wound cultures with pansensitive Acinetobacter baumannii/haemol. daptomycin to be discontinued by hospitalist medicine consult. discussed with patient and orthopedics physician retail assistant to wait for Infectious disease consultation input on transitioning from IV cefepime. Patient's Hemoglobin is stable as 8.3 after 1 unit PRBC that was completed on 03/09/19. Patient denies headache or dizziness of shortness of breath or chest pain. no palpitations. no abdomen pain. no vomiting. she is eating her lunch. patient reports she has been able to ambulate Physical Exam Constitutional: WD/WN, vitals as above Eyes: PERRL, conjunctivae normal, anicteric sclerae EOM intact bilaterally ENMT: external ear and nose normal, oropharynx normal Neck: normal visual inspection Respiratory: normal respiratory effort, lungs clear to auscultation Cardiovascular: RRR, no murmur, no edema Gastrointestinal (Abdomen): normal bowel sounds, soft, nontender, no hepatosplenomegaly Musculoskeletal: Head/Neck/Chest: normocephalic and head atraumatic Skin: right thigh in dressing and juan pablo as sutures Neurologic: PERRL, EOMI, accommodation nl, no face palsy, no dysarthria CN's II-XI intact bilaterally Psychiatric: A+Ox3, euthymic affect Results & Data Vital Signs (Past 12 Hours) Vital Signs Temp Pulse Resp BP Pulse Ox 03/10/19 07:06 36.6 C 76 16 109/55 L 97 (1) Anemia Anemia type: unspecified type Qualified Code(s): D64.9 - Anemia, unspecified
--- NOTE | 2019-03-10 14:04 | Infectious Disease Progress Nt ---
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 follow culture results. blood cultures negative to date. will likely need prolonged course, 4-6 IV abx. Follow additional OR cultures. Subjective pt tolerating abx. blood culutres remain negative, now multiple OR cultures growing Acinetobacter as well. wbc 6.8, creat improved to 1.3 afebrile. Results & Data Vital Signs (Past 12 Hours) Vital Signs Temp Pulse Resp BP Pulse Ox 03/10/19 07:06 36.6 C 76 16 109/55 L 97 Laboratory Results Microbiology 03/08/19 14:30 Hip,Right Gram Stain - Final 03/08/19 14:30 Hip,Right Aerobic and Anaerobic Culture - Preliminary Gram negative bacilli 03/08/19 14:24 Hip,Right Gram Stain - Final 03/08/19 14:24 Hip,Right Aerobic and Anaerobic Culture - Preliminary No growth to date. 03/08/19 14:24 Hip,Right Gram Stain - Final 03/08/19 14:24 Hip,Right Aerobic and Anaerobic Culture - Preliminary No growth to date. 03/08/19 14:14 Hip,Right Gram Stain - Final 03/08/19 14:14 Hip,Right Aerobic and Anaerobic Culture - Preliminary Acinetobacter baumannii/haemol 03/08/19 14:14 Hip,Right Gram Stain - Final 03/08/19 14:14 Hip,Right Aerobic and Anaerobic Culture - Preliminary Acinetobacter baumannii/haemol 03/08/19 14:14 Hip,Right Gram Stain - Final 03/08/19 14:14 Hip,Right Aerobic and Anaerobic Culture - Preliminary Acinetobacter baumannii/haemol 03/07/19 14:48 Blood Aerobic Blood Culture - Preliminary No growth in Aerobic bottle after 48 hours. 03/07/19 14:48 Blood Anaerobic Blood Culture - Preliminary No growth in Anaerobic bottle after 48 hours. 03/07/19 14:16 Blood Aerobic Blood Culture - Preliminary No growth in Aerobic bottle after 48 hours. 03/07/19 14:16 Blood Anaerobic Blood Culture - Preliminary No growth in Anaerobic bottle after 48 hours. 03/08/19 14:30 Hip,Right Gram Stain - Final 03/08/19 14:30 Hip,Right Aerobic and Anaerobic Culture - Preliminary No growth to date. 03/07/19 14:00 Leg,Right Gram Stain - Final 03/07/19 14:00 Leg,Right Wound Culture - Final Acinetobacter baumannii/haemol PG Care Time/CCT Total # of Minutes Spent Total Time Spent with Patient: Total time spent is greater than 50% in coordination of care (as documented) at patient's floor/unit and/or counseling patient:
[2019-03-10] MEDS ORDERED: DAPTOMYCIN CONSULT ACTIVE PRN (15:52)
[2019-03-10] MEDS ORDERED: DAPTOmycin 300 MG in SYRINGE 0 ML IV SCH (16:00)
--- NOTE | 2019-03-10 17:26 | Operative Report ---
Post Operative Report Pre & Post Diagnosis Operation Date: 03/08/19 06:45 Pre-Op Diagnosis: Right hip infection Post-Op Diagnosis: Right hip infection Procedure Operation Date: 03/08/19 06:45 Actual Procedures p right total hip incision and drainage, head and liner exchange(Right) - Stefan Mendieta DO Surgeon Stefan Mendieta DO Facility Service Associate Daisha Lemons Estimated Blood Loss 200 Findings Consistent with Post-Op Diagnosis Specimens superficial wound culture x 3 deep wound culture x 2 superficial wound tissue culture deep wound tissue culture Drains Hemovac drain x2, superficial and deep to fascia Anesthesia Type General Complications none Disposition Disposition: Recovery Room Indications Patient is a 68-year-old female who underwent right anterior total hip arthroplasty on 02/17/2019. At her 2-week postoperative follow-up appointment she was seen in the office and had severe reaction to adhesive tape secondary to an unknown adhesive tape allergy. She had blistering near her incision and rash on the lateral aspect of her thigh. She was started on oral antibiotics double strength Bactrim. Over the next several days she had worsening of her symptoms and subsequent drainage from her incisional site which prompted her to proceed to the emergency department for further evaluation treatment. Superficial cultures positive for Acetobacter. She was subsequently admitted for further i npatient IV antibiotics and surgical intervention. I have indicated the patient for superficial versus deep I&D of right total hip, possible head and liner exchange. This is being performed through the anterior total hip approach. The risk benefits and complications of the procedure were explained to the patient and family in detail alternatives included no surgery. Benefits include improvement of symptoms. Risks include infection, persistent infection, blood clots, injury to surrounding nerves, bone, vessels, soft tissue, arthrofibrosis, chronic pain, hip dislocation, leg length discrepancy, need for additional surgery, loss of limb and loss of life. The patient and family wished to proceed with surgical intervention at this time informed consent was obtained. Description of Procedure Following induction of adequate general anesthesia, the patient was transferred to the OR table and placed in the supine position. The left leg was placed in the well leg kyle and the right leg placed in the traction leg kyle. The right hip was prepped and draped in the typical sterile fashion utilizing Betadine solution. A timeout was performed, patient identified site justin confirmed and appropriate antibiotics given. A 3-1/2 x 3-1/2 cm eschar which involved the middle one third incision was identified, prior incision eschar was excised utilizing scalpel blade. Subcutaneous tissue was sharply dissected. I immediately identified a seroma which was cultured x3. The seroma was evacuated and electrocautery was utilized for hemostasis. A tissue culture was taken from the superficial tissues. Utilizing blunt dissection fascia was probed and found to have a small rent through the fascia medial to the prior fascial repair which led deep to the hip joint. At this time the fascia was incised throughout the length of the wound and prior suture removed. A Charnley retractor was placed. Retained suture from previous surgery was removed and deep dissection was carried down to the previously repaired capsule. Capsulotomy was performed and 2 additional deep cultures were obtained. A tissue culture was also obtained deep to fascia. Total hip prosthesis was identified and meticulous removal of intra-articular scar tissue was performed with bovie. The hip prosthesis was dislocated by traction and external rotation in a controlled manner. The femoral head was removed from the trunion, which was clean and was without signs of wear. The femoral stem stability assessed and found to be stable without signs of loose moy. Next, exposure of the acetabulum was obtained. Additional scar tissue removal and debridement of the intra-articular soft tissue was performed. Utilizing the liner extraction tool the liner was removed. Acetabular cup stability was assessed and found to be stable and without signs of loosening. Next the surgical wound was irrigated with copious amounts of sterile saline with bacitracin, 9 L and total. Next a final 32 x 48 acetabular liner and 32+0 femoral head were inserted and impacted into place. The hip was reduced and C-arm fluoroscopy was brought in and final x-rays were taken which demonstrated adequate alignment of the total hip prosthesis with equal leg lengths. Capsule and deep tissues were closed with #1 PDS. One Hemovac drain was placed deep to fascia as well as one Hemovac drain was placed superficial to fascia. Fascia was closed with #1 PDS with interrupted [id number] sutures. Subcutaneous tissues were closed with 2-0 PDS interrupted suture. Skin was closed with juan pablo and sterile dressings were applied which included Xeroform 4 x 4's ABD and paper tape. The patient tolerated the procedure well and was transported to PACU in stable condition. Due to the complex nature of the procedure, the entire surgery was performed with the operational assistance of Daisha Lemons PA-C. The office assistant receptionist, under direct supervision, was involved in the actual performance of all aspects of the surgical procedure including patient positioning, hemostasis, tissue retraction, instrument management and wound closure. I attest to the content of the Intraoperative Record and any orders documented therein. Any exceptions are noted below.
[2019-03-10] MEDS: SENNA 8.6 MG TAB PO SCH (20:53)
[2019-03-11] MEDS: ACETAMINOPHEN 500 MG TAB PO PRN ×2 (00:09→10:23)
[2019-03-11] MEDS: LEVOTHYROXINE SODIUM 88 MCG TABLET PO SCH (05:25)
--- NOTE | 2019-03-11 06:29 | Orthopedic Progress Note ---
Date of Service March 11, 2019 Assessment & Plan (1) Postoperative wound infection: Status post irrigation debridement right total hip, head and liner exchange, revision hip scar POD#3 -Continue with Cefepime, daptomycin per ID -DVT prophylaxis: SCDs, teds, ASA 81 mg twice daily -Weight-bear as tolerates right lower extremity -Hemovac drain superficial and deep DC'd -ID consult recs appreciated -Follow-up cultures superficial and deep -A.m. lab - pending -IO cultures + aceinetobacter, coag neg staph, e. coli -Postoperative demonstrates a well aligned well fixed prosthesis without fracture/dislocation -DC planning POD#2 -Continue with Cefepime, daptomycin -DVT prophylaxis: SCDs, teds, ASA 81 mg twice daily -Weight-bear as tolerates right lower extremity -Hemovac drain superficial and deep -ID consult recs appreciated -Follow-up cultures superficial and deep -A.m. lab - hgb 8.3, Cr 1.38 baseline -IO cultures + aceinetobacter -Postoperative demonstrates a well aligned well fixed prosthesis without fracture/dislocation -DC planning POD#1 -Continue with Cefepime, daptomycin -DVT prophylaxis: SCDs, teds, ASA 81 mg twice daily -Weight-bear as tolerates right lower extremity -Hemovac drain superficial and deep -ID consult -Follow-up cultures superficial and deep -A.m. lab - hgb 7.4 will transfuse 2 units PRBC -Postoperative demonstrates a well aligned well fixed prosthesis without fracture/dislocation -DC planning Subjective Post Operative Progress Note Patient seen laying in bed, comfortable, denies complaints, pain well controlled, no acute issues. Review of Systems Review of Systems: All systems reviewed & are unremarkable except as noted in HPI & below Constitutional: as per Subjective / HPI Physical Exam Physical Exam: RLE NVSI +EHL/FHL/TA/GS SILT grossly, +2 DP pulse, compartments soft NT, dressing cdi. Constitutional: WD/WN, vitals as above Results & Data Vital Signs (Past 12 Hours) Vital Signs Temp Pulse Pulse Resp BP BP Pulse Ox 03/11/19 06:11 36.6 C 75 18 144/74 H 95 03/11/19 02:50 37 C 03/10/19 23:05 37.5 C 03/10/19 23:00 37.9 C H 83 16 116/68 99 03/10/19 20:53 95 H 125/67
[2019-03-11 06:45] LABS: Basophils # (auto) 0.02 K/uL (0-0.2); Basophils % (auto) 0.3 %; Eosinophils # (auto) 0.35 K/uL (0-0.5); Eosinophils % (auto) 4.7 %; Hematocrit (blood only) 25.3 % (37-47); Hemoglobin 8.4 g/dL (12.0-16.0); Immature Granulocytes # (auto) 0.01 K/uL (0.00-0.02); Immature Granulocytes % (auto) 0.1 %; Lymphocytes % (auto) 8.1 %; Mean Corpuscular Hgb Conc 33.2 g/dL (32-36); Mean Corpuscular Volume 83.2 fL (80-100); Mean Platelet Volume 8.4 fL (7.4-10.4); Monocytes # (auto) 0.84 K/uL (0.11-0.59); Monocytes % (auto) 11.4 %; Neutrophils # (auto) 5.55 K/uL (1.4-6.5); Neutrophils % (auto) 75.4 %; Platelet Count 228 K/uL (130-400); RDW Coefficient of Variation 16.3 % (11.5-14.5); RDW Standard Deviation 49.8 fL (36.4-46.3); Red Blood Count 3.04 M/uL (4.2-5.4); White Blood Count 7.37 K/uL (4.8-10.8)
[2019-03-11 07:04] LABS: Albumin Level 2.3 gm/dl (3.4-5.0); BUN Creatinine Ratio 17.5 (10-20); Creatinine Clr Calc Pharmacy 34.6 ml/min; Est GFR (African American) 45.7; Est GFR (Non-African American) 39.5; Potassium 4.2 mmol/L (3.5-5.1)
[2019-03-11 07:07] LABS: Albumin Globulin Ratio 0.5 (0.9-2); Bilirubin,Total 0.3 mg/dl (0.2-1); Globulin 4.3 gm/dl (2.5-4.0); Total Protein 6.6 gm/dl (6.4-8.2)
[2019-03-11] MEDS: MULTIVITAMIN TAB PO SCH (07:29)
[2019-03-11] MEDS: FOLIC ACID 400 MCG TAB PO SCH (07:30)
[2019-03-11] MEDS: ASPIRIN 81 MG ECTAB PO SCH (07:30)
[2019-03-11] MEDS: CHOLECALCIFEROL 1,000 UNITS TAB PO SCH (07:31)
[2019-03-11] MEDS: METOPROLOL TARTRATE 50 MG TAB PO SCH (07:31)
[2019-03-11] MEDS: DOCUSATE SODIUM 100 MG CAP PO SCH (07:36)
[2019-03-11] MEDS: PANTOprazole 40 MG TAB PO SCH (08:20)
[2019-03-11] MEDS: FERROUS GLUCONATE 324 MG TAB PO SCH ×2 (08:20→17:36)
[2019-03-11] MEDS: CEFEPIME 2,000 MG in SYRINGE 7.5 ML IV SCH (10:13)
--- NOTE | 2019-03-11 14:04 | Infectious Disease Progress Nt ---
Date of Service March 11, 2019 Assessment & Plan (1) Prosthetic joint infection: unfortunately, does not have adequate coverage for home IV abx, >$200/day unaffordable for pt. will change to po levaquin and po doxy for emperic coverage for [employer] as no sensitivity done, this well cover for E. coli as well. will need 4-6 weeks abx. can follow with ID post d/c. Subjective pt seen in followup, feeling much better today, no pain in right hip, drain out. family at bedside, states she is awaiting d/c to daughter's house. States she met with case management earlier this afternoon and she has little coverage for home IV abx, states her co pay would be > $200/day. Requesting po abx. afebrile. wbc improved, creat overall improved. Blood cultures remain negative. She has several OR culture, growing pansensitive Acinetobacter, [employer] (no sensitivities provided) and now E. coli as well, resistant to amp, I to amp/sulbactam. Anxious to go home. Denies abd pain, no n/v/d. no cp, sob, cough, dressing intact. Review of Systems Review of Systems: All systems reviewed & are unremarkable except as noted in HPI & below Physical Exam Constitutional: WD/WN, vitals as above Eyes: PERRL, conjunctivae normal, anicteric sclerae ENMT: external ear and nose normal, oropharynx normal Neck: normal visual inspection Respiratory: normal respiratory effort, lungs clear to auscultation Cardiovascular: RRR, no murmur, no edema Gastrointestinal (Abdomen): normal bowel sounds, soft, nontender, no hepatosplenomegaly Musculoskeletal: no cyanosis or clubbing, extremities motor strength 5/5 Skin: no rashes, warm and dry Psychiatric: A+Ox3, euthymic affect Results & Data Vital Signs (Past 12 Hours) Vital Signs Temp Pulse Resp BP Pulse Ox 03/11/19 07:45 36.6 C 75 18 144/74 H 99 03/11/19 06:11 36.6 C 75 18 144/74 H 95 03/11/19 02:50 37 C Laboratory Results Microbiology 03/08/19 14:24 Hip,Right Gram Stain - Final 03/08/19 14:24 Hip,Right Aerobic and Anaerobic Culture - Preliminary Coag negative Staphylococcus 03/08/19 14:30 Hip,Right Gram Stain - Final 03/08/19 14:30 Hip,Right Aerobic and Anaerobic Culture - Preliminary Coag negative Staphylococcus 03/08/19 14:30 Hip,Right Gram Stain - Final 03/08/19 14:30 Hip,Right Aerobic and Anaerobic Culture - Preliminary Escherichia coli Coag negative Staphylococcus 03/08/19 14:24 Hip,Right Gram Stain - Final 03/08/19 14:24 Hip,Right Aerobic and Anaerobic Culture - Preliminary Coag negative Staphylococcus 03/08/19 14:14 Hip,Right Gram Stain - Final 03/08/19 14:14 Hip,Right Aerobic and Anaerobic Culture - Preliminary Acinetobacter baumannii/haemol Coag negative Staphylococcus 03/08/19 14:14 Hip,Right Gram Stain - Final 03/08/19 14:14 Hip,Right Aerobic and Anaerobic Culture - Preliminary Acinetobacter baumannii/haemol 03/08/19 14:14 Hip,Right Gram Stain - Final 03/08/19 14:14 Hip,Right Aerobic and Anaerobic Culture - Preliminary Acinetobacter baumannii/haemol Coag negative Staphylococcus 03/07/19 14:48 Blood Aerobic Blood Culture - Preliminary No growth in Aerobic bottle after 48 hours. 03/07/19 14:48 Blood Anaerobic Blood Culture - Preliminary No growth in Anaerobic bottle after 48 hours. 03/07/19 14:16 Blood Aerobic Blood Culture - Preliminary No growth in Aerobic bottle after 48 hours. 03/07/19 14:16 Blood Anaerobic Blood Culture - Preliminary No growth in Anaerobic bottle after 48 hours. 03/07/19 14:00 Leg,Right Gram Stain - Final 03/07/19 14:00 Leg,Right Wound Culture - Final Acinetobacter baumannii/haemol PG Care Time/CCT Total # of Minutes Spent Total Time Spent with Patient: Total time spent is greater than 50% in coordination of care (as documented) at patient's floor/unit and/or counseling patient:
[2019-03-11] MEDS ORDERED: levoFLOXacin 500 MG TAB PO SCH (16:00)
--- NOTE | 2019-03-11 17:15 | Hospitalist Progress Note ---
Date of Service March 11, 2019 Assessment & Plan (1) Postoperative wound infection: Improved. Antibiotic management per ID & Ortho. (2) HTN (hypertension): Continue metoprolol. (3) PRAKASH (acute kidney injury): History of CKD 3 with baseline creatinine of 1.21.3. Creatinine on day of admission was 1.80. Creatinine today = 1.38. Avoid nonsteroidal anti-inflammatory drugs if possible. Follow. (4) CKD (chronic kidney disease): As noted above. (5) GERD (gastroesophageal reflux disease): Continue PPI. (6) Hypothyroidism: Continue levothyroxine. (7) Encounter for consultation: Thank you for this consultation. We will follow the patient with you during their hospital stay. My cell # is [phone]. You can reach a member of the [facility] Medicine Team 11/02 via pager @ [phone]. Subjective Recheck for perioperative medical management. Patient seen in their room around 1600. Doing well. Right hip pain improved. No drainage. Ambulate with walker. Case Management researched options for IV antibiotic therapy after discharge. Outpatient options prohibitively expensive or 2 too convenient. Patient not interested in SNF. ID recommended regimen for oral therapy. Review of Systems: Constitutional- no fever. Cardiac- no chest pain. Pulmonary- no cough or SOB. GI- no nausea, vomiting, diarrhea, melena, hematochezia. - no urinary symptoms. Otherwise, as noted above. Physical Exam Constitutional: no acute distress Respiratory: no respiratory distress Auscultation: lungs clear to auscultation bilaterally Cardiovascular: Rate/Rhythm: regular rate and regular rhythm Heart Sounds: no gallop, no murmur and no cardiac rub Vessels: no JVD Extremities: no calf tenderness and no edema Gastrointestinal (Abdomen): normal bowel sounds, soft, nontender, no hepatosplenomegaly Musculoskeletal: Extremities: + extremities abnormal to inspection (right hip bandaged) Skin: no rashes, warm and dry Psychiatric: Orientation: alert and oriented x 3 Results & Data Vital Signs (Past 12 Hours) Vital Signs Temp Pulse Pulse Resp BP BP Pulse Ox 03/11/19 15:15 36.9 C 84 17 100/62 95 03/11/19 07:45 36.6 C 75 18 144/74 H 99 03/11/19 06:11 36.6 C 75 18 144/74 H 95 Laboratory Results Laboratory Results - last 24 hr 03/11/19 03/11/19 06:29 06:31 WBC 7.37 RBC 3.04 L Hgb 8.4 L Hct 25.3 L MCV 83.2 MCH 27.6 MCHC 33.2 RDW Std Deviation 49.8 H RDW Coeff of Gregory 16.3 H Plt Count 228 MPV 8.4 Immature Gran % (Auto) 0.1 Neut % (Auto) 75.4 Lymph % (Auto) 8.1 [place] % (Auto) 11.4 Eos % (Auto) 4.7 Baso % (Auto) 0.3 Immature Gran # (Auto) 0.01 Neut # (Auto) 5.55 Lymph # (Auto) 0.60 L [place] # (Auto) 0.84 H Eos # (Auto) 0.35 Baso # (Auto) 0.02 Sodium 136 Potassium 4.2 Chloride 105 Carbon Dioxide 25 Anion Gap 6.0 BUN 24 H Creatinine 1.38 H Est Cr Clr Drug Dosing 34.6 Est GFR ( Amer) 45.7 Est GFR (Non-Af Amer) 39.5 BUN/Creatinine Ratio 17.5 Glucose 103 H Calcium 9.0 Total Bilirubin 0.3 AST 9 L ALT 7 L Alkaline Phosphatase 66 Total Protein 6.6 Albumin 2.3 L Globulin 4.3 H Albumin/Globulin Ratio 0.5 L
[2019-03-11] MEDS ORDERED: DOXYCYCLINE HYCLATE 100 MG CAP PO SCH (21:00)
--- NOTE | 2019-03-14 15:16 | Discharge Summary ---
Date of Service March 14, 2019 Admission HPI Per Admitting Provider The patient is a 68-year-old female who underwent a uncomplicated right anterior approach total hip arthroplasty on February [address] Mendieta. In subsequent follow-up she was noted to have significant blistering from the adhesive around her dressing. She was prophylactically placed on Bactrim. She has not really had much increase in pain or inability to walk. However today she noticed a red rash along the lateral aspect of the thigh as well as down to the calf. She presented to the emergency room. Ultrasound demonstrated to fairly significantly sized fluid collections. There was drainage that appeared to be purulent this was swabbed. Gram stain demonstrated gram negative bacilli. She denies any recent trauma. Denies any fevers or chills. She has a history of chronic anemia. She also has some known chronic kidney disease. Principal Diagnosis I+D right anterior MALACHI with head and liner exchange Discharge Exam RLE NVSI +EHL/FHL/TA/GS SILT grossly, +2 DP pulse, compartments soft NT, dressing cdi. Constitutional WD/WN, vitals as above Discharge Data Allergies Allergy/AdvReac Type Severity Reaction Status Date / Time adhesive tape AdvReac Intermediate red rash, Unverified 03/07/19 15:00 Consultations 03/07/19 16:37 ED Decision to Admit Stat 03/07/19 17:55 Consult Internal Medicine Routine 03/08/19 15:53 Consult Infectious Diseases Routine 03/08/19 17:28 Consult Hospitalist Routine 03/09/19 08:00 Consult Case Management - Discharge Planning Routine Procedures Performed Operation Date: 03/08/19 06:45 Actual Procedures p right total hip incision and drainage, head and liner exchange(Right) - Stefan Mendieta DO Ordered Studies 03/07/19 14:54 US extremity non-vascular ltd Stat 03/07/19 23:23 US venous doppler LE RT Urgent 03/08/19 13:30 FL fluoroscopy <1hr Routine FL hip RT 1V Routine Hospital Course (1) Postoperative wound infection: The patient is a 68 -year-old Female who presented with Right anterior incisional infection status post right anterior total hip arthroplasty. Postoperatively the patient had a severe reaction to adhesive tape which subsequently developed a blistering, wound dehiscence and drainage. Patient was admitted for formal irrigation and debridement, head and liner exchange and IV antibiotics. I indicated the patient for a Irrigation debridement of right anterior total Hip arthroplasty, head and liner exchange, the risks, benefits and complications of the procedure include but not limited to infection, bleeding, damage to bone, nerves, vessels, surrounding soft tissue, may develop blood clots, loss of function, leg length discrepancy, dislocation, failure of the components, loosening of the components, the need for additional surgery and . The patient wished to proceed with surgery at this time and informed consent was obtained. Hospital Course: On 03/08/2019 the patient was taken to the operating room, adequate anesthesia administered and underwent a I&D right anterior total Hip arthroplasty, head and liner exchange. The patient tolerated the procedure well and was taken to the PACU in stable condition. Post-operatively the patient was started on a DVT ppx medication and given appropriate IV antibiotics. Consults were placed to ID, medical hospitalist, physical therapy, occupational therapy and case management. On POD#1, the patient did well overnight and their pain was well controlled. Labs were drawn and the Hgb was 7.4, she was transfused 2 units of PRBC. Creatinine decreased to 1.52. Repeat hemoglobin was 8.3. The patient progressed well with PT. Dressings were changed at this time and the incision was clean, dry and intact. Hemovac drains were DC'd. ID recs were appreciated, IV daptomycin and cefepime continued. On POD#2, the patient continued to progress well with physical therapy, she was afebrile and her pain was well controlled. Labs were drawn and hemoglobin was 8.3. Creatinine decreased to 1.38 she is near the patient's baseline. IV antibiotics continued per infectious disease until cultures finalized. On POD#3, the patient continued to progress well with physical therapy, she was afebrile and her pain was well controlled. Labs were drawn and hemoglobin was 8.3. Creatinine remained stable at 1.38. Final intraoperative cultures positive for coag negative staph, E. coli, Acinetobacter. Infectious disease recommended IV antibiotics for 4 to 6 weeks however due to patient unable to afford IV antibiotics she was discharged on p.o. antibiotics Doxycycline and Levaquin. The patient understands that p.o. antibiotics may be less effective at treating her infection than IV antibiotics. The patient understood the risks, asked that she be discharged on p.o. antibiotics, refused IV antibiotics and was subsequently discharged on p.o. antibiotics at the recommendations of infectious disease. The patients hospital stay was relatively uneventful and they were deemed stable by the orthopedic team and consultants to be discharged Home with home health on 03/11/2019. Discharge Instructions: Upon discharge the patient may weight bear As tolerated through their operative extremity. They were instructed to keep the incision clean and dry at all times. The patient may shower but should not submerge the incision, avoid bathing, pools and hot tubes. The patient was given a script for pain medication and should take as instructed. The patient was given a script for DVT ppx 81 mg aspirin twice daily and should take as directed. The patient was instructed to not drive or travel for long distances until cleared to do so. If the patient develops any symptoms of fevers, chills, nausea, vomiting, increased redness, swelling, pain or drainage from the surgical site, they should notify the office and/or proceed to the nearest emergency room. The patient should follow up in 10-14 days after surgery for their routine post-operative follow-up appointment and should call the office to confirm the date and time. The patient was also Instructed to follow-up with infectious disease, Dr. Aden 2 weeks postoperatively. Status post irrigation debridement right total hip, head and liner exchange, revision hip scar POD#3 -Continue with Cefepime, daptomycin per ID -DVT prophylaxis: SCDs, teds, ASA 81 mg twice daily -Weight-bear as tolerates right lower extremity -Hemovac drain superficial and deep DC'd -ID consult recs appreciated -Follow-up cultures superficial and deep -A.m. lab - pending -IO cultures + aceinetobacter, coag neg staph, e. coli -Postoperative demonstrates a well aligned well fixed prosthesis without fracture/dislocation -DC planning POD#2 -Continue with Cefepime, daptomycin -DVT prophylaxis: SCDs, teds, ASA 81 mg twice daily -Weight-bear as tolerates right lower extremity -Hemovac drain superficial and deep -ID consult recs appreciated -Follow-up cultures superficial and deep -A.m. lab - hgb 8.3, Cr 1.38 baseline -IO cultures + aceinetobacter -Postoperative demonstrates a well aligned well fixed prosthesis without fracture/dislocation -DC planning POD#1 -Continue with Cefepime, daptomycin -DVT prophylaxis: SCDs, teds, ASA 81 mg twice daily -Weight-bear as tolerates right lower extremity -Hemovac drain superficial and deep -ID consult -Follow-up cultures superficial and deep -A.m. lab - hgb 7.4 will transfuse 2 units PRBC -Postoperative demonstrates a well aligned well fixed prosthesis without fracture/dislocation -DC planning Total Time Total Time Spent Total Time Spent (In Minutes): >60 minutes Discharge Plan Discharge Items Patient Disposition: Home - Home Health Services Reason For Visit: R HIP INFECTION Discharge Diagnosis: Irrigation and debridement left total hip with head and liner exchange Condition: Good Discharge Goals: Decrease discomfort, Improve disease control, Improve function, Increase independence and Therapeutic intervention Activity: Per 'Additional Instructions' section Lifting: Wait until after follow-up appointment Bathing Comment: No bathing, pools or hot tubs Sexual Activity: Wait until after follow-up appointment Exercise/Sports: Wait until after follow-up appointment Driving/Machine Use Comment: No driving till cleared by your surgeon Weightbearing: Right weightbearing Non-emergency contact: Primary Care Provider and Surgeon Call non-emergency contact if: you have any medication questions, your symptoms worsen, your pain is not controlled, your pain is worsening, your pain is unusual for you, your pain is concerning for you, you have a fever, your temperature is above 100.5, your temperature is above 101, your wound has increased redness, your wound has increased drainage and your wound pain has increased Follow-up/Referrals: Peter Nick [Primary Care Provider] - Diet: Regular Addtl Provider Instructions: You will need to have weekly blood work done. This can be done through home health vs an outpatient lab. Results will be sent to Dr Aden/Dr Mendieta. They will change your medication as needed. ACTIVITY RECOMMENDATIONS: SELF CARE INSTRUCTIONS AFTER TOTAL HIP REPLACEMENT : Direct Anterior Approach Until the incision and soft tissues around your hip have healed, there is a po ssibility that the hip prosthesis could dislocate. A. Hip flexion ( Up & Down out of chair or steps ) may be difficult. This is normal. B. Numbness in front of the thigh is also normal for a few weeks. C. Use hand rails when walking on stairs. D. Wear low heeled shoes with non-slip soles. E. Be sure that your floors are free of things that could trip you - throw rugs, electrical cords, small objects. Avoid wet and waxed floors, especially with crutches and canes. F. Try to walk several times a day with rest periods between. G. Continue with all the exercises taught to you in the hospital. Again, make walking a part of your daily routine. SPECIAL CARE INSTRUCTIONS: VERY IMPORTANT TO READ AND REVIEW A. You may still be at risk for phlebitis and blood clots. 1. Wear surgical stockings (EDUAR hose) for 2 weeks after surgery to improve circulation and reduce swelling. 2. Take Aspirin 81mg twice daily for 4 weeks or as directed by your doctor. This is your blood thinner. 3. High risk patients may be prescribed a stronger blood thinner if necessary. 4. If you are on Coumadin normally, your family doctor/campus recruiting coordinator should monitor your blood work. Expect a phone call the day of or the day after bloodwork is drawn to adjust your dosage. B. You must take antibiotics before having dental work, bladder, bowel and other surgery. Your doctor will provide you with a permanent card to carry describing precautions. C. Call [facility] if you have a fever, redness or swelling around the incision, cloudy drainage from incision, or sudden increase in pain in your hip, not relieved by your regular pain medication. D. Please call the office at if you have any concerns or questions about your operation or recovery. * YOU MAY SHOWER, NO TUB BATHS UNTIL CLEARED BY YOUR DOCTOR. - Keep an extra close eye on the top portion of your incision. Be sure to keep clean & dry. * WEAR EDUAR HOSE 20 HOURS PER DAY FOR 2 WEEKS. * YOU MAY PROGRESS FROM A WALKER, TO A CANE, TO INDEPENDENT AT YOUR OWN PACE. * MOST PATIENTS WILL HAVE HOME NURSING FOR THERAPY. IF YOU DECIDE TO DO OUTPATIENT PHYSICAL THERAPY, PLEASE SCHEDULE THIS 3 TIMES PER WEEK. *Keep incision clean and dry at all times, cover with clean dry dressing, avoid adhesive tape. FOLLOW UP VISIT: If appointment is not already scheduled: Please call [facility] to make a follow-up appointment for 2 weeks after your surgery at . Follow up with Dr Aden in 2 weeks. Please call for an appointment. [phone] Prescriptions: New doxycycline hyclate 100 mg Capsule 100 mg PO BID@0600,2100 42 Days Qty: 84 RF: 0 levofloxacin 500 mg Tablet 500 mg PO DAILY@1100 42 Days Qty: 42 RF: 0 aspirin [Ecotrin Low Strength] 81 mg Tablet,Delayed Release (Dr/Ec) 81 mg PO BID 30 Days Qty: 60 RF: 0 oxycodone 5 mg Tablet 5 mg PO Q4H PRN (Reason: pain) Qty: 30 RF: 0 sennosides [Senokot] 8.6 mg Tablet 17.2 mg PO HS Qty: 30 RF: 0 Continued multivitamin Tablet 1 tab PO QAM RF: 0 levothyroxine 88 mcg Tablet 88 mcg PO QAM RF: 0 metoprolol tartrate 50 mg Tablet 50 mg PO BID RF: 0 esomeprazole magnesium [Nexium] 20 mg Capsule,Delayed Release(Dr/Ec) 20 mg PO QAM RF: 0 cholecalciferol (vitamin D3) [Vitamin D3] 2,000 unit Tablet 2,000 unit PO QAM RF: 0 Aranesp (in polysorbate) 10 mcg/0.4 mL Syringe 10 mcg subcut DIRECTED RF: 0 folic acid 400 mcg Tablet 400 mcg PO QAM RF: 0 Discontinued ferrous sulfate [iron] 325 mg (65 mg iron) Tablet 325 mg PO QAM RF: 0 aspirin [Ecotrin Low Strength] 81 mg Tablet,Delayed Release (Dr/Ec) 81 mg PO BID Qty: 56 RF: 0 acetaminophen [Tylenol Extra Strength] 500 mg Tablet 1,000 mg PO Q8 PRN (Reason: pain and/or fever) Qty: 90 RF: 0 sulfamethoxazole-trimethoprim [Bactrim DS] 800-160 mg Tablet 1 tab PO Q12H RF: 0 Stand-Alone Forms: [facility] Discharge Orders: Discharge Order (Routine); Ordered 03/11/19 Ordered By: Patrice Davies Admission Data Admit Date/Time: 03/07/19 18:08 Attending Provider: Stefan Mendieta Admit Provider: Ron Rojo Primary Care Provider: Peter Ncik Other Providers: Davin Quintero ; Ron Rojo ; Bertrand Akhtar ; Mariano Cooney Service: Surgical Services Other Interventions: Discharge Summary Assessment (RN) Last Done: 03/11/19 14:06 [place] Date/Time DO NOT enter until pt leaves facility: 03/11/19 20:20
== END 2019-03-11 20:20 | disposition home health service (06) | DRG 857 ==
LOC: ED 13:04 → 3W 17:55

== ENCOUNTER 2020-06-21 05:11 | Observation (INO) ==
--- NOTE | 2020-06-13 13:42 | Anesthesiology Consultation ---
Date of Service June 13, 2020 Assessment & Plan (1) Encounter for pre-operative examination: - Surgery has been rescheduled multiple times- d/t scheduling issues related to COVID/for medical clearance (since obtained)/URI symptoms (04/29/20- cough, post nasal drip, congestion/since resolved/COVID testing was negative). Rescheduled to 06/21/20* - Per assessment on 06/13: Travel screen negative. No known COVID-19 positive contacts or current COVID-19 related symptoms. Surgeon arranging preop COVID testing. Awaiting results. - Hx glidescope intubation: Right Polyhead Exchange 03/08/19= Done under [place] with Grade 2-3 view with Glidescope #3. - Cardiology office visit: 03/23/20: "I did review with the patient the results of the stress test performed today. I emphasized the need for ongoing cardiac risk factor modification with continued close medical follow-up. I see no cardiac contraindication to proceeding on with the planned orthopedic procedure." - PCP office visit: 10/09/19: "Patient is medically cleared for surgery" pending preop testing as well as hematology and ID clearances. (heme and ID clearances below/updated preop testing showed no acute/new issues) - Infectious Disease note: 09/09/19: "No contraindication for surgery from ID standpoint." - Hematology note: 10/06/19: "No contraindication" to surgery. "Need to check her CBC before sx for anemia and risk of infection." Will order CBC for AM DOS. Chart Review Chart Review: Acceptable Risk for Surgery (pending evaluation AM DOS) and Patient seen in Pre Admission Testing Teaching & Discussion Pre-Anesthesia Teaching/Discussion Notes: Instructed NPO after midnight before surgery,except medications with 15 cc of water. Medication instructions provided according to the PAT guidelines. History Surgery Operation Date: 06/21/20 09:20 Proposed Procedures p Left Anterior Total Hip Arthroplasty - Stefan Mendieta DO Height/Weight Height: 5 ft 2 in Weight: 64.41 kg Allergies Allergy/AdvReac Type Severity Reaction Status Date / Time adhesive tape Allergy Severe infection Verified 04/20/20 16:18 s/p right hip surgery Medications Home Medications Medication Instructions Recorded Confirmed Last Taken Aranesp (in polysorbate) 10 mcg SUBCUT Q14D 01/30/19 05/31/20 02/26/19 esomeprazole magnesium [Nexium] 20 mg PO QAM 01/30/19 05/31/20 03/07/19 levothyroxine 88 mcg PO QAM 01/30/19 05/31/20 03/07/19 metoprolol tartrate 50 mg PO BID 01/30/19 05/31/20 03/07/19 aspirin [Aspirin Low Dose] 81 mg PO QAM 09/15/19 05/31/20 Unknown acetaminophen [Tylenol] 650 mg PO Q6H PRN 10/26/19 05/31/20 Unknown multivitamin 1 tab PO QAM 02/11/20 05/31/20 Unknown Past Medical History Medical History (Updated 06/13/20 @ 13:39 by Ayesha Escobar) Anemia chronic - baseline Hgb 9-10 range; no definitive etiology, follows with [place] [facility] CKD (chronic kidney disease) Stage III CLL (chronic lymphocytic leukemia) Per PCP records - dx'ed in 2009, no chemo or xrt GERD (gastroesophageal reflux disease) HTN (hypertension) Hx of infection (2018) post-op Right MALACHI- no longer follows with Infectious Disease, no MRSA Hypothyroidism Osteoarthritis Past Family History Family History Brother Family history of diabetes mellitus Sister Family history of diabetes mellitus Other No family history of adverse response to anesthesia Past Surgical History Surgical History (Updated 06/13/20 @ 13:39 by Ayesha Escobar) History of esophagogastroduodenoscopy (EGD) History of right hip replacement x2 (Summer 2018) Hx of cholecystectomy lap Hx of colonoscopy S/P left knee arthroscopy S/P right knee arthroscopy right Polyhead Exchange 03/08/19= Done under [place] with Grade 2-3 view with Glidescope #3 Social History Smoking Status: Never smoker Do You Dip or Chew Tobacco: No Hx Alcohol Use: No Hx Substance Use: No substance use type: does not use Review of Systems Patient denies chest pain, shortness of breath, dyspnea on exertion, joint pain, reflux, cough, wheezing, palpitations. Physical Exam Vital Signs VITALS BP P TEMP SP02 RESP PHYSICAL Full neck and c-spine range of motion. Full TMJ range of motion. TMD __ finger breaths Mallampati Score ___ Dentition: intact Lungs: clear throughout to auscultation Cardiac: regular rate and rhythm, no murmurs noted Spine: normal Carotid arteries: negative bruit Extremities: no edema Testing Laboratory Results 04/21/20 WBC 8.95 H/H 10.1/31.9 (improved) PLATELETS 202 SODIUM 135 POTASSIUM 3.8 CHLORIDE 105 CO2 22 BUN 15 CREATININE 1.24 GLUCOSE 194 PT 10.3 PTT 26.6 INR 1.0 HGBA1C 5.3% Electrocardiogram Date: 01/21/20 Sinus rhythm with first-degree AV block at 69 bpm. Nonspecific T wave abnormality. Chest X-Ray Date: 01/21/20 Findings: + NAD Echocardiogram Date: 03/01/20 EF 55%. No RWMA. Trace to at most mild CA/TI. PASP 23mmhg. Stress Test Date: 03/23/20 Type: nuclear (Lexiscan) No significant STT wave changes associated with Lexiscan infusion. Normal myocardial perfusion SPECT images without evidence for pharmacologically induced ischemia. Rest LVEF 71%.
--- NOTE | 2020-06-20 17:49 | History & Physical Report ---
Date of Service June 21, 2020 Assessment & Plan (1) Degenerative joint disease of left hip: I have indicated the patient for left anterior total hip replacement. The risks, benefits and complications of surgery were explained to the patient which include but not limited to infection, acute blood loss, DVT/PE, injury to nerves, vessels, bone, soft tissue, arthrofibrosis, chronic pain, failure of the prosthesis, hip dislocation, leg length discrepancy, need for additional surgery, cardiac and pulmonary events and . The patient wished to proceed with surgery and informed consent was obtained at this time. We will plan for 81mg ASA BID post-operatively for DVT prophylaxis. Upon discharge the patient will be discharged home with home health services. Appropriate clearances by PCP were obtained. History of Present Illness Chief Complaint: Left hip pain/DJD/AVN Primary Care Provider: Peter Nick The patient is a 70 year old female who presents with complaints of severe left hip pain, DJD and severe AVN of the femoral head. The patient has failed outpatient conservative treatments to this point which included NSAIDs, PT, home exercise program. The patient's pain and limited function have progressed to the point where they severely hinder their activities of daily living and they no longer tolerate exercise programs. They are requesting to proceed with total hip replacement surgery. Allergies Allergy/AdvReac Type Severity Reaction Status Date / Time adhesive tape Allergy Severe infection Verified 06/21/20 05:48 s/p right hip surgery Home Medications Medication Instructions Recorded Confirmed Type Aranesp (in polysorbate) 10 mcg SUBCUT Q14D 01/30/19 06/21/20 History esomeprazole magnesium [Nexium] 20 mg PO QAM 01/30/19 06/21/20 History levothyroxine 88 mcg PO QAM 01/30/19 06/21/20 History metoprolol tartrate 50 mg PO BID 01/30/19 06/21/20 History aspirin [Aspirin Low Dose] 81 mg PO QAM 09/15/19 06/21/20 History acetaminophen [Tylenol] 650 mg PO Q6H PRN 10/26/19 06/21/20 History multivitamin 1 tab PO QAM 02/11/20 06/21/20 History cholecalciferol (vitamin D3) 25 mcg PO DAILY 06/21/20 06/21/20 History [Vitamin D3] Past Med/Surg History Medical History Anemia chronic - baseline Hgb 9-10 range; no definitive etiology, follows with [place] [facility] CKD (chronic kidney disease) Stage III CLL (chronic lymphocytic leukemia) Per PCP records - dx'ed in 2009, no chemo or xrt GERD (gastroesophageal reflux disease) HTN (hypertension) Hx of infection (2018) post-op Right MALACHI- no longer follows with Infectious Disease, no MRSA Hypothyroidism Osteoarthritis Surgical History History of esophagogastroduodenoscopy (EGD) History of right hip replacement x2 (Summer 2018) Hx of cholecystectomy lap Hx of colonoscopy S/P left knee arthroscopy S/P right knee arthroscopy right Polyhead Exchange 03/08/19= Done under [place] with Grade 2-3 view with Glidescope #3 Family History Brother Family history of diabetes mellitus Sister Family history of diabetes mellitus Other No family history of adverse response to anesthesia Social History Smoking Status: Never smoker Second Hand Exposure: No; Do You Dip or Chew Tobacco: No; Tobacco Cessation Education Requested by Patient: No Hx Alcohol Use: No Hx Substance Use: No Preferred Language: Kazakh Communication Ability: Effective 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 Constitutional: WD/WN, vitals as above Eyes: PERRL, conjunctivae normal, anicteric sclerae ENMT: external ear and nose normal, oropharynx normal Neck: trachea midline, no thyromegaly Respiratory: normal respiratory effort, lungs clear to auscultation Cardiovascular: RRR, no murmur, no edema Gastrointestinal (Abdomen): normal bowel sounds, soft, nontender, no hepatosplenomegaly Musculoskeletal: no cyanosis or clubbing, extremities motor strength 5/5 Skin: no rashes, warm and dry Neurologic: patellar DTR's 2+ bilat, sensation intact Psychiatric: A+Ox3, euthymic affect Lymphatic: no cervical or axillary lymphadenopathy Results & Data Results & Data ([facility]) Diagnostic Findings Multiple views of the hip demonstrates severe DJD with complete loss of the joint space. Severe AVN with femoral head with collapse, +osteophytes, +sclerosis, +subchondral cysts.
[2020-06-21] MEDS ORDERED: GABAPENTIN 300 MG CAP PO SCH (06:00)
[2020-06-21] MEDS ORDERED: TRANEXAMIC ACID 1,000 MG **IV Pre-op IV SCH (06:00)
[2020-06-21] MEDS ORDERED: FAMOTIDINE 20 MG TAB PO SCH (06:00)
[2020-06-21] MEDS ORDERED: dexAMETHasone 4 MG TAB PO SCH (06:00)
[2020-06-21] MEDS ORDERED: CeleBREX 200 MG CAP PO SCH (06:00)
[2020-06-21] MEDS ORDERED: ACETAMINOPHEN 500 MG TAB PO SCH (06:00)
[2020-06-21] MEDS ORDERED: ROPIVACAINE 0.5% HCL/PF 150 MG, BUPIVACAINE 0.5% MPF 30 ML, EPINEPHrine 30MG/30ML (OR U... INSTIL SCH (06:00)
[2020-06-21] MEDS ORDERED: LR 500ML BOLUS, THEN 15ML/HR IV SCH (06:00)
[2020-06-21] MEDS ORDERED: ceFAZolin 2000MG 2,000 MG/15 ML SYR IV SCH (06:00)
[2020-06-21] MEDS ORDERED: TRANEXAMIC ACID 1,000 MG **IV Intra-op IV SCH (06:00)
[2020-06-21] MEDS ORDERED: METOCLOPRAMIDE HCL 10 MG TABLET PO SCH (06:00)
[2020-06-21 06:15] LABS: Basophils # (auto) 0.04 K/uL (0-0.2); Basophils % (auto) 0.5 %; Eosinophils # (auto) 0.27 K/uL (0-0.5); Eosinophils % (auto) 3.5 %; Hematocrit (blood only) 30.2 % (37-47); Immature Granulocytes # (auto) 0.02 K/uL (0.00-0.02); Immature Granulocytes % (auto) 0.3 %; Lymphocytes # (auto) 0.91 K/uL (1.2-3.4); Lymphocytes % (auto) 11.9 %; Mean Corpuscular Hemoglobin 27.2 pg (25-34); Mean Corpuscular Volume 82.3 fL (80-100); Mean Platelet Volume 9.1 fL (7.4-10.4); Monocytes # (auto) 0.53 K/uL (0.11-0.59); Monocytes % (auto) 6.9 %; Neutrophils # (auto) 5.86 K/uL (1.4-6.5); Neutrophils % (auto) 76.9 %; Platelet Count 203 K/uL (130-400); RDW Coefficient of Variation 16.2 % (11.5-14.5); RDW Standard Deviation 48.3 fL (36.4-46.3); Red Blood Count 3.67 M/uL (4.2-5.4); White Blood Count 7.63 K/uL (4.8-10.8)
[2020-06-21] MEDS ORDERED: BUPIVACAINE 0.5 % 5 MG/1 ML PF 10ML VIAL ONE (06:20)
[2020-06-21 06:28] LABS: Mean Corpuscular Hgb Conc 33.1 g/dL (32-36)
[2020-06-21] MEDS ORDERED: MIDAZOLAM HCL 1 MG/ML 2ML VIAL ONE ×2 (06:38)
[2020-06-21] MEDS ORDERED: fentaNYL citrate 100 MCG/2 ML VIAL ONE (06:38)
--- NOTE | 2020-06-21 07:02 | History & Physical Bridge Note ---
Date of Service June 21, 2020 History & Physical Bridge Note I have examined the patient, reviewed the History & Physical and in the interval since the performance of the History & Physical I have noted the following changes of clinical significance: no changes noted
[2020-06-21] MEDS ORDERED: ORTHO JOINT ANESTHETIC ONE (07:03)
[2020-06-21] MEDS ORDERED: BACITRACIN INJ 50,000 UNIT VIAL ONE (07:04)
[2020-06-21] MEDS ORDERED: ATROPINE SULFATE 0.1 MG/ML 10ML SYR IV PRN (08:07)
[2020-06-21] MEDS ORDERED: ePHEDrine sulfate 50 MG/ML AMP IV PRN (08:07)
[2020-06-21] MEDS ORDERED: LIDOCAINE HCL 2% 2 ML VIAL/AMP(20MG/ML) INFIL ONE (08:22)
[2020-06-21] MEDS ORDERED: PROPOFOL IV EMULSION 10 MG/ML 20 ML VIAL IV ONE (08:22)
[2020-06-21] MEDS ORDERED: SODIUM CHLORIDE 0.9% 250 ML IV PRN (10:40)
[2020-06-21] MEDS ORDERED: KETAMINE 50 MG/5 ML SYRINGE ONE (11:22)
--- NOTE | 2020-06-21 11:57 | Fluoroscopy Report ---
INTRAOPERATIVE RADIOGRAPHS CLINICAL HISTORY: Left hip arthroplasty procedure. Internal fixation of the greater trochanter of the left femur. Fluoroscopy time: 1 minute 23 seconds. FINDINGS: 3 spot fluoroscopic views of the left hip and bony pelvis are correlated with pelvic CT lucretia ed 01/30/2019. A bipolar left hip arthroplasty is in near-anatomic alignment. At least 2 cortical lag screws transfix the acetabular cup. There has been buttress plate fixation along the lateral aspect o f the greater trochanter with cerclage wires in place. The orthopedic hardware appears intact. No acu te fracture is identified. A right hip arthroplasty is partially imaged. IMPRESSION: Intraoperative images from left hip arthroplasty placement and buttress plate fixation of the proximal left femur. Electronically signed by: Torito Austin M.D. 06/21/2020 11:56 AM
--- NOTE | 2020-06-21 11:58 | Post Operative Brief Note ---
Immediate Post Op Note v1 Date of Surgery June 21, 2020 Pre & Post Diagnosis Operation Date: 06/21/20 07:15 Pre-Op Diagnosis: Unilateral Primary Osteoarthritis, avascular necrosis, Left Hip Post-Op Diagnosis: Left Hip Primary Osteoarthritis, avascular necrosis, Left Greaer Trochanter Fracture I identified the patient and participated in the time-out.: Yes Procedure Operation Date: 06/21/20 07:15 Actual Procedures p Left Anterior Total Hip Arthroplasty, Open Reduction, Internal Fixation Left Greater Tronchanter(Left) - Stefan Mendieta DO Surgeon Stefan Mendieta DO Chief Drafter Patrice Davies Estimated Blood Loss 400 Findings Consistent with Post-Op Diagnosis Fluids 1200 cc LR Specimens femoral head Anesthesia Type Spinal MAC Complications none Disposition Disposition: Recovery Room Overlapping Procedure I was present for: the critical portions of procedure. I was immediately available: during the entire case. Back up surgeon: was not required during procedure.
--- NOTE | 2020-06-21 12:08 | Operative Report ---
Post Operative Report Pre & Post Diagnosis Operation Date: 06/21/20 07:15 Pre-Op Diagnosis: Unilateral Primary Osteoarthritis, avascular necrosis , Left Hip Post-Op Diagnosis: Left Hip Primary Osteoarthritis, avascular necrosis, Left Greater Trochanter Fracture I identified the patient and participated in the time-out.: Yes Procedure Operation Date: 06/21/20 07:15 Actual Procedures p Left Anterior Total Hip Arthroplasty, Open Reduction, Internal Fixation Left Greater Tronchanter(Left) - Stefan Mendieta DO Surgeon Stefan Mendieta DO Mill Roll Rewinder Patrice Davies Estimated Blood Loss 400 Findings Consistent with Post-Op Diagnosis Fluids 1200 cc LR Specimens femoral head Anesthesia Type Spinal MAC Complications none Disposition Disposition: Recovery Room Indications The patient is a 70-year-old female who presents with severe progressive left hip DJD, AVN with femoral head collapse who has failed outpatient conservative treatments. I indicated the patient for a anterior total hip replacement and the risks and benefits were explained in detail which include but not limited to infection, bleeding, blood clot, damage to surrounding bone, nerves, vessels, soft tissue, hip dislocation, failure of the prosthesis, leg length discrepancy, need for additional surgery and . The patient agreed to proceed with replacement of the hip and informed consent was obtained. Appropriate clearances were obtained. Description of Procedure COMPONENTS USED: [employer] hip system: Acetabulum size [ ], fem ur size [ ] offset, femoral head [ ], liner [ ], acetabular screw [ ]. [facility] trochanteric educational technician plate size medium length 100 mm, 2.0 cables x3 DESCRIPTION OF PROCEDURE: Following satisfactory [ ] anesthesia, the patient was placed supine on the OR table. The [ ] leg was placed in the well leg kyle and the [ ] leg in the traction device. The [ ] leg was prepared with ChloraPrep and draped sterilely. A surgical timeout was performed, patient identified and site justin verified. Appropriate antibiotics were given. A standard anterior approach in the interval between the sartorius and tensor muscles was performed. Dissection was carried down through subcutaneous tissues. Electrocautery was utilized for hemostasis. Circumflex femoral vessels were identified, tied and ligated. The anterior capsular fat pad was removed and the capsulotomy was performed revealing the arthritic femoral neck and head. A femoral neck cut was made with reciprocating saw and the bone fragments removed. It was noted the bone was significantly soft and there was minimal resistance during femoral neck cut. The acetabular self-retraining retractor was placed. Acetabular reaming was completed under fluoroscopic guidance, a [ ] shell was impacted into an anatomic position and secured with two acetabular screws. Local anesthetic was placed and following irrigation, the polyethylene liner was placed. The femur was placed into position of external rotation, extension and adduction. The leg was lowered slowly in order to extend the hip for adequate exposure of the femur, intermediate to the bottom I appreciated a fracture developing in the greater trochanter. The leg was brought back to neutral and the greater trochanter was assessed, nondisplaced fracture was then verified. The fracture did not extend into the shaft of the femur. The hip was placed into position of external rotation, extension and adduction once more. Femoral canal was prepared up to the size [ ] offset. Trial r eduction with a [ ] neck length head showed good soft tissue tension, leg lengths restored, and good fit and fill of the proximal canal using fluoroscopic landmarks. The hip was dislocated. The trial component was removed. The final implant was impacted into place and the hip reduced. Next, careful exposure of the nondisplaced greater trochanter fracture was obtained. A Lilia trochanteric educational technician plate, size medium length 100mm was placed laterally over the greater trochanter. Soft tissue was elected from the femoral shaft to ensure the plate was fully seated down to bone. Three 2.0 Ce rclage cables were carefully passed around the proximal femur distal to the lesser trochanter and secured through the plate. Under C arm fluoroscopy the cerclage cables were tightened by hand until the plate was fully seated. Using the cerclage tensioner the cables were tightened sequentially, crimped and cut. Final x-rays were obtained utilizing C-arm fluoroscopy verifying anatomic alignment of the fracture site and a well aligned well fixed plate with cerclage wires. A Betadine soak was performed. After 3 minutes, the hip was once more irrigated with copious sterile saline solution with bacitracin. Shila-incisional soft tissue was injected utilizing [facility] [place] [facility] which includes a combination of Ropivicaine 0.5% 150mg, Bupivicaine 0.5%/Epinephrine 1:200,000 30ml, Toradol 30mg, Dexamethasone 4mg, Ketamine 10mg, Clonidine 100mcg and NSS 30ml solution. The capsule was then closed with 1-0 Vicryl interrupted figure of eight sutures. The fascia was closed with a running suture of #1 Vicryl, the subcutaneous tissues with 2-0 Vicryl and the skin was closed with juan pablo. A sterile dry dressing was then applied which included Xeroform, 4 x 4's, ABD and paper tape The patient tolerated the procedure well and was transported to PACU in stable condition. Due to the complex nature of the procedure, the entire surgery was performed with the operational assistance of Patrice Davies PA-C. The medical clerical assistant, under direct supervision, was involved in the actual performance of all aspects of the surgical procedure including patient positioning, hemostasis, tissue retraction, instrument management and wound closure. I attest to the content of the Intraoperative Record and any orders documented therein. Any exceptions are noted below.
--- NOTE | 2020-06-21 12:51 | Anesthesiology Progress Note ---
Date of Service June 21, 2020 Anesthesia Post Procedure Vital Signs Vital Signs: Temp Pulse Pulse Resp BP Pulse Ox 06/21/20 12:40 71 13 138/77 100 06/21/20 12:30 74 14 140/68 100 06/21/20 12:21 36.4 C L 79 16 125/74 99 06/21/20 06:35 83 20 156/94 H 98 06/21/20 06:14 36.9 C 92 H 18 182/91 H 98 Transfer of Care Handoff Completed per policy Notes Mental Status: alert / awake / arousable and participated in evaluation Nausea / Vomiting: adequately controlled Pain: adequately controlled Airway Patency, RR, SpO2: stable & adequate BP & HR: stable & adequate Hydration State: stable & adequate Neuraxial Anesthesia: was administered and sensory block is resolving Anesthetic Complications: no major complications apparent and Pt Satisfied with anesthetic care
--- NOTE | 2020-06-21 13:02 | XRay Report ---
XR hip 1V LT w pelvis CLINICAL HISTORY: IN PACU - A/P PELVIS and LATERAL HIP COMPARISON: 03/07/2019 DISCUSSION: A total right hip arthroplasty is again evident. There is evidence for interval total lef t hip arthroplasty with a proximal cerclage device. There is a longstem femoral component. There is n o dislocation. IMPRESSION: Postsurgical changes of total left hip arthroplasty. No evidence of dislocation ACT 112: Negative or not required by law. Electronically signed by: Rene Delgadillo M.D. 06/21/2020 1:00 PM
[2020-06-21] MEDS ORDERED: METOCLOPRAMIDE HCL INJ 5 MG/ML 2 ML VIAL IV PRN (13:41)
[2020-06-21] MEDS ORDERED: MAGNESIUM HYDROXIDE SUSP 30 ML UDC PO PRN (13:41)
[2020-06-21] MEDS ORDERED: oxyCODONE HCL IR 5 MG TAB (IMMEDIATE RELEASE) PO PRN (13:41)
[2020-06-21] MEDS ORDERED: NALOXONE HCL 0.4 MG/1 ML VIAL/CARP IV PRN (13:41)
[2020-06-21] MEDS ORDERED: diphenhydrAMINE Capsule 25 MG CAP PO PRN (13:41)
[2020-06-21] MEDS ORDERED: ONDANSETRON INJ 2 MG/ML 2 ML VIAL IV PRN (13:41)
[2020-06-21] MEDS ORDERED: bisacodyL 10 MG SUPP PR PRN (13:41)
[2020-06-21] MEDS ORDERED: HYDROmorphone INJ 0.5 MG/0.5 ML SYR IV PRN (13:41)
[2020-06-21] MEDS: SODIUM CHLORIDE 0.9% 1000ML 1,000 ML IV SCH ×2 (14:36→23:15)
--- NOTE | 2020-06-21 15:37 | Orthopedic Progress Note ---
Date of Service June 21, 2020 Assessment & Plan (1) Degenerative joint disease of left hip: s/p L anterior MALACHI, ORIF left greater trochanter -ancef x 24 -DVT ppx: SCDs, TEDs, 81mg ASA BID -50% WB LLE -Ambulate with walker -PT/OT, no abduction strengthening at this time -PO XR demonstrates a well aligned well fixed total hip prothesis without dislocation, anatomic alignment of GT fracture, well aligned, well fixed hook plate/cables -am labs -DC planning I discussed with the patient at length intra-operative findings including extremely soft bone and greater trochanteric fracture. I reviewed intraoperative and postoperative XRs with her as well. I discussed the need for long stem total hip prosthesis and ORIF of the greater trochanter once fracture was identified. I outlined precautions including ambulating with assistive device at all times, 50% WB on LLE and abduction precautions until fracture healing as occurred. The patient expressed understanding of the findings and adjustments made during surgery. All questions were answered to satisfaction. Admission and Anticipated Discharge Date Admission Date: June 21, 2020 Subjective Post Operative Progress Note Patient seen sitting up in bed, comfortable, denies complaints, pain well controlled, no acute issues. Review of Systems 2 Review of Systems: All systems reviewed & are unremarkable except as noted in HPI & below Constitutional: as per Subjective / HPI Physical Exam Physical Exam: LLE NVSI +EHL/FHL/TA/GS SILT grossly, +2 DP pulse, compartments soft NT, dressing cdi. Constitutional: WD/WN, vitals as above Results & Data ([place]) Vital Signs (Past 12 Hours) Vital Signs Temp Pulse Pulse Resp BP BP Pulse Ox 06/21/20 14:37 36.9 C 93 H 16 147/75 H 95 06/21/20 14:03 36.4 C L 77 16 138/75 97 06/21/20 13:14 36.7 C 81 15 121/79 99 06/21/20 13:00 88 18 144/68 H 96 06/21/20 12:50 75 15 130/77 97 06/21/20 12:40 71 13 138/77 100 06/21/20 12:30 74 14 140/68 100 06/21/20 12:21 36.4 C L 79 16 125/74 99 06/21/20 06:35 83 20 156/94 H 98 06/21/20 06:14 36.9 C 92 H 18 182/91 H 98
[2020-06-21] MEDS: ceFAZolin 2000MG 2,000 MG/15 ML SYR IV SCH ×2 (17:00→23:14)
[2020-06-21] MEDS: ACETAMINOPHEN 500 MG TAB PO SCH ×2 (17:00→22:04)
[2020-06-21] MEDS: SENNA 8.6 MG TAB PO SCH (22:04)
[2020-06-21] MEDS: DOCUSATE SODIUM 100 MG CAP PO SCH (22:04)
[2020-06-21] MEDS: METOPROLOL TARTRATE 50 MG TAB PO SCH (22:06)
[2020-06-22] MEDS: ACETAMINOPHEN 500 MG TAB PO SCH ×3 (05:01→21:21)
[2020-06-22] MEDS: LEVOTHYROXINE SODIUM 88 MCG TABLET PO SCH (05:01)
[2020-06-22 06:00] LABS: Hematocrit (blood only) 22.2 % (37-47); Hemoglobin 7.4 g/dL (12.0-16.0); Mean Corpuscular Hgb Conc 33.3 g/dL (32-36); Platelet Count 211 K/uL (130-400); RDW Coefficient of Variation 16.3 % (11.5-14.5); RDW Standard Deviation 48.1 fL (36.4-46.3); Red Blood Count 2.74 M/uL (4.2-5.4); White Blood Count 19.15 K/uL (4.8-10.8)
[2020-06-22 06:20] LABS: Basophils # (auto) 0.01 K/uL (0-0.2); Basophils % (auto) 0.1 %; Immature Granulocytes # (auto) 0.07 K/uL (0.00-0.02); Immature Granulocytes % (auto) 0.4 %; Lymphocytes % (auto) 3.7 %; Monocytes # (auto) 1.17 K/uL (0.11-0.59); Monocytes % (auto) 6.1 %; Neutrophils % (auto) 89.7 %; RBC Morphology Unremarkable
[2020-06-22 06:24] LABS: BUN Creatinine Ratio 21.2 (10-20); Calcium 8.1 mg/dl (8.5-10.1); Creatinine Clr Calc Pharmacy 30.3 ml/min; Est GFR (African American) 38.3
[2020-06-22] MEDS ORDERED: SODIUM CHLORIDE 0.9% 250 ML IV PRN (07:47)
[2020-06-22] MEDS ORDERED: ACETAMINOPHEN 325 MG TAB PO ONE (07:47)
[2020-06-22] MEDS ORDERED: INFLUENZA ADMINISTRATION CHARGE ONE (08:00)
[2020-06-22] MEDS ORDERED: INFLUENZA VIRUS QUAD VACCINE 0.5 ML SYR IM ONE (08:00)
--- NOTE | 2020-06-22 08:46 | Orthopedic Progress Note ---
Date of Service June 22, 2020 Assessment & Plan (1) Degenerative joint disease of left hip: s/p L anterior MALACHI, ORIF left greater trochanter POD#1 -ancef x 24 -DVT ppx: SCDs, TEDs, 81mg ASA BID -50% WB LLE -Ambulate with walker -PT/OT, no abduction strengthening at this time -PO XR demonstrates a well aligned well fixed total hip prothesis without dislocation, anatomic alignment of GT fracture, well aligned, well fixed hook plate/cables -am labs - as above, hgb 7.4, will transfuse 1 unit of PRBC, Cr 1.58, has hx of CKD, baseline pre-op 1.27. Encouraged PO fluid intake. Will monitor. -DC planning - home with HH I discussed with the patient at length intra-operative findings including extremely soft bone and greater trochanteric fracture. I reviewed intraoperative and postoperative XRs with her as well. I discussed the need for long stem total hip prosthesis and ORIF of the greater trochanter once fracture was identified. I outlined precautions including ambulating with assistive device at all times, 50% WB on LLE and abduction precautions until fracture healing as occurred. The patient expressed understanding of the findings and adjustments made during surgery. All questions were answered to satisfaction. Admission and Anticipated Discharge Date Admission Date: June 21, 2020 Subjective Post Operative Progress Note Patient seen sitting up in bed, comfortable, denies complaints, pain well controlled, no acute issues. Denies F/C/N/V/SOB/CP. Review of Systems Review of Systems: All systems reviewed & are unremarkable except as noted in HPI & below Constitutional: as per Subjective / HPI Physical Exam Physical Exam: LLE NVSI +EHL/FHL/TA/GS SILT grossly, +2 DP pulse, compartments soft NT, dressing cdi. Constitutional: WD/WN, vitals as above Results & Data ([place]) Vital Signs (Past 12 Hours) Vital Signs Temp Pulse Pulse Resp BP BP BP 06/22/20 08:34 36.6 C 80 18 147/84 H 06/22/20 07:23 36.3 C L 80 18 154/65 H 06/22/20 03:05 36.4 C L 68 16 123/67 06/21/20 23:21 36.4 C L 69 16 135/80 06/21/20 21:38 85 151/69 H Pulse Ox 06/22/20 08:34 06/22/20 07:23 97 06/22/20 03:05 96 06/21/20 23:21 97 06/21/20 21:38 Laboratory Results 06/22/20 06/22/20 06/21/20 Range/Units 05:37 05:37 05:51 WBC 19.15 H D (4.8-10.8) K/uL RBC 2.74 L (4.2-5.4) M/uL Hgb 7.4 L (12.0-16.0) g/dL Hct 22.2 L (37-47) % MCV 81.0 (80-100) fL MCH 27.0 (25-34) pg MCHC 33.3 (32-36) g/dL RDW Std Deviation 48.1 H (36.4-46.3) fL RDW Coeff of Gregory 16.3 H (11.5-14.5) % Plt Count 211 (130-400) K/uL MPV 9.0 (7.4-10.4) fL Immature Gran % (Auto) 0.4 % Neut % (Auto) 89.7 % Lymph % (Auto) 3.7 % [place] % (Auto) 6.1 % Eos % (Auto) 0.0 % Baso % (Auto) 0.1 % Neut # (Auto) 17.20 H (1.4-6.5) K/uL Lymph # (Auto) 0.70 L (1.2-3.4) K/uL [place] # (Auto) 1.17 H (0.11-0.59) K/uL Eos # (Auto) 0.00 (0-0.5) K/uL Baso # (Auto) 0.01 (0-0.2) K/uL Immature Gran # (Auto) 0.07 H (0.00-0.02) K/uL RBC Morphology Unremarkable Sodium 134 L (136-145) mmol/L Potassium 5.0 (3.5-5.1) mmol/L Chloride 106 (98-107) mmol/L Carbon Dioxide 21 (21-32) mmol/L Anion Gap 7.0 (3-11) BUN 34 H (7-18) mg/dl Creatinine 1.58 H (0.6-1.2) mg/dl Est Cr Clr Drug Dosing 30.3 ml/min Est GFR ( Amer) 38.3 Est GFR (Non-Af Amer) 33.0 BUN/Creatinine Ratio 21.2 H (10-20) Glucose 298 H (70-99) mg/dl Calcium 8.1 L (8.5-10.1) mg/dl Hepatitis C Ab Screen Neg (Neg) Blood Type Antibody Screen Crossmatch 06/21/20 Range/Units 05:51 WBC (4.8-10.8) K/uL RBC (4.2-5.4) M/uL Hgb (12.0-16.0) g/dL Hct (37-47) % MCV (80-100) fL MCH (25-34) pg MCHC (32-36) g/dL RDW Std Deviation (36.4-46.3) fL RDW Coeff of Gregory (11.5-14.5) % Plt Count (130-400) K/uL MPV (7.4-10.4) fL Immature Gran % (Auto) % Neut % (Auto) % Lymph % (Auto) % [place] % (Auto) % Eos % (Auto) % Baso % (Auto) % Neut # (Auto) (1.4-6.5) K/uL Lymph # (Auto) (1.2-3.4) K/uL [place] # (Auto) (0.11-0.59) K/uL Eos # (Auto) (0-0.5) K/uL Baso # (Auto) (0-0.2) K/uL Immature Gran # (Auto) (0.00-0.02) K/uL RBC Morphology Sodium (136-145) mmol/L Potassium (3.5-5.1) mmol/L Chloride (98-107) mmol/L Carbon Dioxide (21-32) mmol/L Anion Gap (3-11) BUN (7-18) mg/dl Creatinine (0.6-1.2) mg/dl Est Cr Clr Drug Dosing ml/min Est GFR ( Amer) Est GFR (Non-Af Amer) BUN/Creatinine Ratio (10-20) Glucose (70-99) mg/dl Calcium (8.5-10.1) mg/dl Hepatitis C Ab Screen (Neg) Blood Type A Negative Antibody Screen NEGATIVE Crossmatch See Detail
[2020-06-22] MEDS: MULTIVITAMIN TAB PO SCH (08:55)
[2020-06-22] MEDS: ASPIRIN 81 MG ECTAB PO SCH ×2 (08:55→21:20)
[2020-06-22] MEDS: METOPROLOL TARTRATE 50 MG TAB PO SCH ×2 (08:55→21:20)
[2020-06-22] MEDS: DOCUSATE SODIUM 100 MG CAP PO SCH ×2 (08:55→21:21)
[2020-06-22] MEDS: PANTOprazole 40 MG TAB PO SCH (08:55)
[2020-06-22] MEDS: SENNA 8.6 MG TAB PO SCH (21:20)
[2020-06-23] MEDS: ACETAMINOPHEN 500 MG TAB PO SCH (05:44)
[2020-06-23] MEDS: LEVOTHYROXINE SODIUM 88 MCG TABLET PO SCH (05:45)
[2020-06-23 06:05] LABS: Basophils # (auto) 0.02 K/uL (0-0.2); Basophils % (auto) 0.1 %; Eosinophils # (auto) 0.04 K/uL (0-0.5); Eosinophils % (auto) 0.2 %; Hemoglobin 8.4 g/dL (12.0-16.0); Immature Granulocytes # (auto) 0.06 K/uL (0.00-0.02); Immature Granulocytes % (auto) 0.4 %; Lymphocytes # (auto) 1.17 K/uL (1.2-3.4); Mean Corpuscular Hemoglobin 27.5 pg (25-34); Mean Corpuscular Hgb Conc 33.6 g/dL (32-36); Mean Platelet Volume 9.7 fL (7.4-10.4); Monocytes # (auto) 1.09 K/uL (0.11-0.59); Monocytes % (auto) 6.5 %; Neutrophils # (auto) 14.42 K/uL (1.4-6.5); Neutrophils % (auto) 85.8 %; Platelet Count 207 K/uL (130-400); RDW Coefficient of Variation 16.3 % (11.5-14.5); RDW Standard Deviation 48.6 fL (36.4-46.3); Red Blood Count 3.05 M/uL (4.2-5.4)
[2020-06-23 06:33] LABS: BUN Creatinine Ratio 23.2 (10-20); Calcium 8.2 mg/dl (8.5-10.1); Creatinine Clr Calc Pharmacy 33.2 ml/min; Est GFR (African American) 42.8; Potassium 4.5 mmol/L (3.5-5.1)
[2020-06-23] MEDS: METOPROLOL TARTRATE 50 MG TAB PO SCH (07:45)
[2020-06-23] MEDS: DOCUSATE SODIUM 100 MG CAP PO SCH (07:45)
[2020-06-23] MEDS: MULTIVITAMIN TAB PO SCH (07:46)
[2020-06-23] MEDS: PANTOprazole 40 MG TAB PO SCH (07:46)
[2020-06-23] MEDS: ASPIRIN 81 MG ECTAB PO SCH (07:46)
[2020-06-23] MEDS ORDERED: PNEUMOCOCCAL ADMINISTRATION CHARGE ONE (09:00)
[2020-06-23] MEDS ORDERED: PNEUMOCOCCAL POLYSACCHARIDES 25 MCG/0.5 ML VIAL/SYR IM ONE (09:00)
--- NOTE | 2020-06-23 09:53 | Orthopedic Progress Note ---
Date of Service June 23, 2020 Assessment & Plan (1) Degenerative joint disease of left hip: s/p L anterior MALACHI, ORIF left greater trochanter POD#2 -ancef x 24 -DVT ppx: SCDs, TEDs, 81mg ASA BID -50% WB LLE -Ambulate with walker -PT/OT, no abduction strengthening at this time -PO XR demonstrates a well aligned well fixed total hip prothesis without dislocation, anatomic alignment of GT fracture, well aligned, well fixed hook plate/cables -am labs - as above, hgb 8.4, received 1 unit of PRBC on 06/22/20, Cr 1.44, down from 1.58, has hx of CKD, baseline pre-op 1.27. Encouraged PO fluid intake. Will monitor. -DC planning - home with POD#1 -ancef x 24 -DVT ppx: SCDs, TEDs, 81mg ASA BID -50% WB LLE -Ambulate with walker -PT/OT, no abduction strengthening at this time -PO XR demonstrates a well aligned well fixed total hip prothesis without dislocation, anatomic alignment of GT fracture, well aligned, well fixed hook plate/cables -am labs - as above, hgb 7.4, will transfuse 1 unit of PRBC, Cr 1.58, has hx of CKD, baseline pre-op 1.27. Encouraged PO fluid intake. Will monitor. -DC planning - home with I discussed with the patient at length intra-operative findings including extremely soft bone and greater trochanteric fracture. I reviewed intraoperative and postoperative XRs with her as well. I discussed the need for long stem total hip prosthesis and ORIF of the greater trochanter once fracture was identified. I outlined precautions including ambulating with assistive device at all times, 50% WB on LLE and abduction precautions until fracture healing as occurred. The patient expressed understanding of the findings and adjustments made during surgery. All questions were answered to satisfaction. Admission and Anticipated Discharge Date Admission Date: June 21, 2020 Subjective Post Operative Progress Note Patient seen sitting in chair at bedside, comfortable, denies complaints, pain well controlled, no acute issues. Denies F/C/N/V/SOB/CP. Review of Systems Review of Systems: All systems reviewed & are unremarkable except as noted in HPI & below Constitutional: as per Subjective / HPI Physical Exam Physical Exam: LLE NVSI +EHL/FHL/TA/GS SILT grossly, +2 DP pulse, compartments soft NT, dressing cdi. Constitutional: WD/WN, vitals as above Results & Data ([facility]) Vital Signs (Past 12 Hours) Vital Signs Temp Pulse Resp BP Pulse Ox 06/23/20 07:13 36.6 C 71 16 115/71 98 06/22/20 23:02 36.6 C 64 16 144/78 H 98 Laboratory Results 06/23/20 06/23/20 06/21/20 Range/Units 05:41 05:41 05:51 WBC 16.80 H (4.8-10.8) K/uL RBC 3.05 L (4.2-5.4) M/uL Hgb 8.4 L (12.0-16.0) g/dL Hct 25.0 L (37-47) % MCV 82.0 (80-100) fL MCH 27.5 (25-34) pg MCHC 33.6 (32-36) g/dL RDW Std Deviation 48.6 H (36.4-46.3) fL RDW Coeff of Gregory 16.3 H (11.5-14.5) % Plt Count 207 (130-400) K/uL MPV 9.7 (7.4-10.4) fL Immature Gran % (Auto) 0.4 % Neut % (Auto) 85.8 % Lymph % (Auto) 7.0 % [place] % (Auto) 6.5 % Eos % (Auto) 0.2 % Baso % (Auto) 0.1 % Neut # (Auto) 14.42 H (1.4-6.5) K/uL Lymph # (Auto) 1.17 L (1.2-3.4) K/uL [place] # (Auto) 1.09 H (0.11-0.59) K/uL Eos # (Auto) 0.04 (0-0.5) K/uL Baso # (Auto) 0.02 (0-0.2) K/uL Immature Gran # (Auto) 0.06 H (0.00-0.02) K/uL Sodium 137 (136-145) mmol/L Potassium 4.5 (3.5-5.1) mmol/L Chloride 108 H (98-107) mmol/L Carbon Dioxide 25 (21-32) mmol/L Anion Gap 4.0 (3-11) BUN 33 H (7-18) mg/dl Creatinine 1.44 H (0.6-1.2) mg/dl Est Cr Clr Drug Dosing 33.2 ml/min Est GFR ( Amer) 42.8 Est GFR (Non-Af Amer) 37.0 BUN/Creatinine Ratio 23.2 H (10-20) Glucose 136 H (70-99) mg/dl Calcium 8.2 L (8.5-10.1) mg/dl Crossmatch See Detail
--- NOTE | 2020-06-23 16:15 | Discharge Summary ---
Date of Service June 23, 2020 Admission HPI Per Admitting Provider The patient is a 70 year old female who presents with complaints of severe left hip pain, DJD and severe AVN of the femoral head. The patient has failed outpatient conservative treatments to this point which included NSAIDs, PT, home exercise program. The patient's pain and limited function have progressed to the point where they severely hinder their activities of daily living and they no longer tolerate exercise programs. They are requesting to proceed with total hip replacement surgery. Principal Diagnosis Left anterior total hip replacement, ORIF greater trochanter -Left hip AVN, greater trochanter fracture Discharge Exam LLE NVSI +EHL/FHL/TA/GS SILT grossly, +2 DP pulse, compartments soft NT, dress ing cdi. Constitutional WD/WN, vitals as above Discharge Data Allergies Allergy/AdvReac Type Severity Reaction Status Date / Time adhesive tape Allergy Severe infection Verified 06/21/20 05:48 s/p right hip surgery Consultations 06/22/20 08:00 Consult Case Management - Discharge Planning Routine Procedures Performed Operation Date: 06/21/20 07:15 Actual Procedures p Left Anterior Total Hip Arthroplasty, (Left) - Stefan Mendieta DO s Open Reduction, Internal Fixation Left Greater Tronchanter(Left) - Stefan roche DO Ordered Studies 06/21/20 07:15 FL fluoroscopy <1hr Routine FL hip LT 1V Routine Hospital Course (1) Degenerative joint disease of left hip: The patient is a 70 -year-old female who presents with long standing history of severe left hip DJD/AVN with femoral head collapse and failed outpatient conservative treatments. The patient's symptoms have progressed to the point where it has been difficult to perform even normal activities of daily living. I indicated the patient for a left anterior total hip arthroplasty, the risks, benefits and complications of the procedure include but not limited to infection, bleeding, damage to bone, nerves, vessels, surrounding soft tissue, may develop blood clots, loss of function, leg length discrepancy, dislocation, failure of the components, loosening of the components, the need for additional surgery and . The patient wished to proceed with surgery at this time and informed consent was obtained. Hospital Course: On 06/21/20 the patient was taken to the operating room, adequate anesthesia administered and underwent a left anterior total hip arthroplasty, ORIF of the greater trochanter. The patient tolerated the procedure well and was taken to the PACU in stable condition. Post-operatively the patient was started on a DVT ppx medication and given appropriate IV antibiotics. Consults were placed to physical therapy, occupational therapy and case management. On POD#1, the patient did well overnight and their pain was well controlled. Labs were drawn and the Hgb was 7.4, Cr 1.58, patient transfused 1 unit PRBC. The patient progressed well with PT. On POD#2, the patient did well overnight, progressed with PT, labs drawn, hgb stable at 8.4 and Cr 1.44. Dressings were changed at this time and the incision was clean, dry and intact. The patients hospital stay was relatively uneventful and they were deemed stable by the orthopedic team and consultants to be discharged home with on 06/23/20. Discharge Instructions: Upon discharge the patient is to maintain 50% weight bearing through their operative extremity. Ambulate with walker at all times and strict abduction precautions with no strengthening of the abductor muscles till cleared. They were instructed to keep the incision clean and dry at all times. The patient may shower but should not submerge the incision, avoid bathing, pools and hot tubs. The patient was given a script for pain medication and should take as instructed. The patient was given a script for DVT ppx 81mg ASA BID and should take as directed. The patient was instructed to not drive or travel for long distances until cleared to do so. If the patient develops any symptoms of fevers, chills, nausea, vomiting, increased redness, swelling, pain or drainage from the surgical site, they should notify the office and/or proceed to the nearest emergency room. The patient should follow up in 10-14 days after surgery for their routine post-operative follow-up appointment and should call the office, to confirm the date and time. s/p L anterior MALACHI, ORIF left greater trochanter POD#2 -ancef x 24 -DVT ppx: SCDs, TEDs, 81mg ASA BID -50% WB LLE -Ambulate with walker -PT/OT, no abduction strengthening at this time -PO XR demonstrates a well aligned well fixed total hip prothesis without dislocation, anatomic alignment of GT fracture, well aligned, well fixed hook plate/cables -am labs - as above, hgb 8.4, received 1 unit of PRBC on 06/22/20, Cr 1.44, down from 1.58, has hx of CKD, baseline pre-op 1.27. Encouraged PO fluid intake. Will monitor. -DC planning - home with POD#1 -ancef x 24 -DVT ppx: SCDs, TEDs, 81mg ASA BID -50% WB LLE -Ambulate with walker -PT/OT, no abduction strengthening at this time -PO XR demonstrates a well aligned well fixed total hip prothesis without dislocation, anatomic alignment of GT fracture, well aligned, well fixed hook plate/cables -am labs - as above, hgb 7.4, will transfuse 1 unit of PRBC, Cr 1.58, has hx of CKD, baseline pre-op 1.27. Encouraged PO fluid intake. Will monitor. -DC planning - home with I discussed with the patient at length intra-operative findings including extremely soft bone and greater trochanteric fracture. I reviewed intraoperative and postoperative XRs with her as well. I discussed the need for long stem total hip prosthesis and ORIF of the greater trochanter once fracture was identified. I outlined precautions including ambulating with assistive device at all times, 50% WB on LLE and abduction precautions until fracture healing as occurred. The patient expressed understanding of the findings and adjustments made during surgery. All questions were answered to satisfaction. Total Time Total Time Spent Total Time Spent (In Minutes): 45 Discharge Plan Discharge Items Patient Disposition: Home - Home Health Services Reason For Visit: Unilateral Primary Osteoarthritis, Left Hip Discharge Diagnosis: Left anterior total hip replacement -Left hip DJD/AVN Condition on Discharge: Good Activity: Per Instructions section Lifting: Wait until after follow-up appointment Bathing: Keep incision dry Bathing Comment: Keep incision CDI Sexual Activity: Wait until after follow-up appointment Exercise/Sports: Wait until after follow-up appointment Driving/Machine Use: No driving Weightbearing: Left partial Weightbearing Comment: 50% Non-emergency contact: Primary Care Provider and Surgeon Call non-emergency contact if: you have any medication questions, your symptoms worsen, your pain is not controlled, your pain is worsening, your pain is unusual for you, your pain is concerning for you, you have a fever, your temperature is above 101, your wound has increased redness, your wound has increased drainage and your wound pain has increased Follow-up/Referrals: Peter Nick [Primary Care Provider] - Diet: Regular Addtl Attending Provider Instructions: ACTIVITY RECOMMENDATIONS: SELF CARE INSTRUCTIONS AFTER TOTAL HIP REPLACEMENT : Direct Anterior Approach Until the incision and soft tissues around your hip have healed, there is a possibility that the hip prosthesis could dislocate. A. Hip flexion ( Up & Down out of chair or steps ) may be difficult. This is normal. B. Numbness in front of the thigh is also normal for a few weeks. C. Use hand rails when walking on stairs. D. Wear low heeled shoes with non-slip soles. E. Be sure that your floors are free of things that could trip you - throw rugs, electrical cords, small objects. Avoid wet and waxed floors, especially with crutches and canes. F. Try to walk several times a day with rest periods between. G. Continue with all the exercises taught to you in the hospital. Again, make walking a part of your daily routine. SPECIAL CARE INSTRUCTIONS: VERY IMPORTANT TO READ AND REVIEW A. You may still be at risk for phlebitis and blood clots. 1. Wear surgical stockings (EDUAR hose) for 2 weeks after surgery to improve circulation and reduce swelling. 2. Take Aspirin 81mg twice daily for 4 weeks or as directed by your doctor. This is your blood thinner. 3. High risk patients may be prescribed a stronger blood thinner if necessary. 4. If you are on Coumadin normally, your family doctor/movie extra should monitor your blood work. Expect a phone call the day of or the day after bloodwork is drawn to adjust your dosage. B. You must take antibiotics before having dental work, bladder, bowel and other surgery. Your doctor will provide you with a permanent card to carry bridgette cribing precautions. C. Call [facility] if you have a fever, redness or swelling around the incision, cloudy drainage from incision, or sudden increase in pain in your hip, not relieved by your regular pain medication. D. Please call the office at if you have any concerns or ques tions about your operation or recovery. * YOU MAY SHOWER, NO TUB BATHS UNTIL CLEARED BY YOUR DOCTOR. - Keep an extra close eye on the top portion of your incision. Be sure to keep clean & dry. * WEAR EDUAR HOSE 20 HOURS PER DAY FOR 2 WEEKS. * YOU MAY PROGRESS FROM A WALKER, TO A CANE, TO INDEPENDENT AT YOUR OWN PACE. * MOST PATIENTS WILL HAVE HOME NURSING FOR THERAPY. IF YOU DECIDE TO DO OUTPATIENT PHYSICAL THERAPY, PLEASE SCHEDULE THIS 3 TIMES PER WEEK. * Keep incision clean and dry, change dressing daily, if dry may leave uncovered. FOLLOW UP VISIT: If appointment is not already scheduled: Please call [facility] to make a follow-up appointment for 2 weeks after your surgery at . Pending Studies at Discharge: No Stand-Alone Forms: My [facility] [employer], Opioid Pain Management, Smoking Cessation Medications and DC Order Prescriptions: New aspirin 81 mg Tablet,Delayed Release (Dr/Ec) 81 mg PO BID Qty: 56 RF: 0 acetaminophen 500 mg Tablet 1,000 mg PO Q8 PRN (Reason: pain/fevers) Qty: 90 RF: 0 oxycodone 5 mg Tablet 5 mg PO Q6H MDD 4 PRN (Reason: pain) Qty: 30 RF: 0 sennosides [Senokot] 8.6 mg Tablet 17.2 mg PO HS PRN (Reason: constipation) Qty: 28 RF: 0 Continued levothyroxine 88 mcg Tablet 88 mcg PO QAM RF: 0 metoprolol tartrate 50 mg Tablet 50 mg PO BID RF: 0 esomeprazole magnesium [Nexium] 20 mg Capsule,Delayed Release(Dr/Ec) 20 mg PO QAM RF: 0 Aranesp (in polysorbate) 10 mcg/0.4 mL Syringe 10 mcg subcut Q14D RF: 0 cholecalciferol (vitamin D3) [Vitamin D3] 25 mcg (1,000 unit) Tablet 25 mcg PO DAILY RF: 0 multivitamin Tablet 1 tab PO QAM RF: 0 Discontinued aspirin [Aspirin Low Dose] 81 mg Tablet,Delayed Release (Dr/Ec) 81 mg PO QAM RF: 0 acetaminophen [Tylenol] 325 mg Tablet 650 mg PO Q6H PRN (Reason: Pain) RF: 0 Discharge Orders: Discharge Order (Routine); Ordered 06/23/20 Ordered By: Stefan Sharma/Other Patient Handouts: DVT Post Op Prevention Admission Data Admit Date/Time: 06/21/20 12:42 Attending Provider: Stefan Mendieta Admit Provider: Stefan Mnedieta Primary Care Provider: Peter Nick Other Providers: [facility] Other Interventions: Discharge Summary Assessment (RN) Last Done: 06/23/20 09:59
== END 2020-06-23 13:09 | disposition home health service (06) ==
LOC: ASU 05:11 → 3E 05:11